=== PATIENT | female | born 1995 | race Caucasian/White ===

== ENCOUNTER 2019-09-27 15:54 | Outpatient (CLI) | payer BC ==
[~2019-09-27] VITALS: Ht 163 cm; Wt 79.6 kg
[~2019-09-27 15:54] MED LIST: FERR256T PO; IBP600T1 PO; PREN-93 PO
--- NOTE | 2019-09-27 16:00 | NUR ---
ALLISON MCCONNELL presented to unit via ambulation from ED, accompanied by S.o., with c/o CONTRACTIONS. ALLISON MCCONNELL weighed, gowned, voided, and to bed. EFHM and TOCO applied, VS taken. ALLISON MCCONNELL oriented to bed controls, call light, TV, heat, and A/C controls.
[2019-09-27 16:22] VITALS: BP 105/64
[2019-09-27 16:23] LABS: BILIRUBIN,URINE NEGATIVE (NEGATIVE); CLARITY,URINE OTHER; COLOR,URINE YELLOW; GLUCOSE, URINE (UA) NEGATIVE (NEGATIVE); KETONES,URINE NEGATIVE (NEGATIVE); LEUKOCYTE ESTERASE ,URINE 1+ (NEGATIVE); NITRITE,URINE NEGATIVE (NEGATIVE); PH,URINE 6.5 (5-9); PROTEIN,URINE NEGATIVE (NEGATIVE)
[2019-09-27 16:27] VITALS: BP 105/54
[2019-09-27 16:34] LABS: BACTERIA,URINE MODERATE /HPF; SQUAMOUS EPITHELIAL CELL,UR 25-50 /HPF; WBC,URINE 50-100 /HPF
--- NOTE | 2019-09-27 17:20 | NUR ---
DR. HERNANDEZ NOTIFIED OF PT'S ARRIVAL, @ 32.4 WKS, C/O CTXS, UA RESULTS, REVIEW OF STRIP. ORDER RECEIVED FOR DISCHARGE HOME.
--- NOTE | 2019-09-27 17:30 | NUR ---
DISCHARGE PAPERS PROVIDED AND REVIEWED WITH PT, PT VERBALIZES UNDERSTANDING AND DENIES ANY QUESTIONS AT THIS TIME. PT ALREADY HAS AN APPT TO BE SEEN BY DR. RICHARD TOMORROW, 09/28. PAPER SIGNED.
--- NOTE | 2019-09-27 17:35 | NUR ---
PT DISCHARGED FROM [facility] TO [facility] VIA AMBULATORY IN STABLE CONDITION ACC BY S/O.
--- NOTE | 2019-09-28 08:15 | Physician Query-Final Dx ---
Clinic Account Progress/Dx Physician Query: Please give diagnosis Please include # weeks gestation Date of Service Sep 27, 2019 at 15:54 ERI DUMONT Sep 28, 2019 08:15
== END 2019-09-27 17:35 | disposition home or self-care (01) ==
LOC: WSo 15:54 → LDRP 15:56 → WSo 17:35
PROVIDERS: ATTEND Family Medicine
DX: O62.9 Abnormality of forces of labor, unspecified (principal); Z3A.00 Weeks of gestation of pregnancy not specified
CPT/HCPCS: 81000; 87077; 87088; 99212

== ENCOUNTER 2019-10-03 15:53 | Outpatient (CLI) | payer BC ==
[~2019-10-03] VITALS: Ht 166 cm; Wt 79.4 kg
--- NOTE | 2019-10-03 16:10 | NUR ---
ALLISON MCCONNELL presented to unit via ambulation from ED, accompanied by S.O., with c/o FELL UP STAIRS,NO CURRENT PAIN. ALLISON MCCONNELL weighed, gowned, voided, and to bed. EFHM and TOCO applied, VS taken. ALLISON MCCONNELL oriented to bed controls, call light, TV, heat, and A/C controls.
[2019-10-03 16:15] VITALS: BP 110/63
[2019-10-03 16:30] VITALS: BP 110/68
--- NOTE | 2019-10-03 16:30 | NUR ---
Dr Zapata called and notified of pt arrival to hospital. C/o fall at home at 1315. Pt reports falling "accordion" style and fell to knees but then knees bent into abdomen. notified of c/o decreased movement since fall and also had a loose BM 5min following fall. updated on EFM and ctx pattern. Order rec'd to monitor for 3 hrs then call with update and for further orders.
--- NOTE | 2019-10-03 20:05 | NUR ---
Discharge packet given and explained, understanding voiced by pt and aware to be seen in office this week. No concerns noted, ambulatory off unit at this time, accompanied by so. will cont to monitor.
--- NOTE | 2019-10-04 08:44 | Physician Query-Final Dx ---
Clinic Account Progress/Dx Physician Query: Please give diagnosis Please include # weeks gestation Date of Service Oct 03, 2019 at 15:53 ERI DUMONT Oct 04, 2019 08:44
== END 2019-10-03 20:05 | disposition home or self-care (01) ==
LOC: WSo 15:53 → LDRP 15:57 → WSo 20:05
PROVIDERS: ATTEND Family Medicine
DX: O62.9 Abnormality of forces of labor, unspecified (principal); W19.XXXA Unspecified fall, initial encounter; Z3A.33 33 weeks gestation of pregnancy
CPT/HCPCS: 99213

== ENCOUNTER 2019-10-19 17:32 | Outpatient (CLI) | payer BC ==
[~2019-10-19] VITALS: Ht 162.5 cm; Wt 80.7 kg
--- NOTE | 2019-10-19 17:32 | NUR ---
ALLISON MCCONNELL presented to unit via AMB from HOME, accompanied by S.O., with c/o COMPLAINT OF CONTRACTIONS. ALLISON MCCONNELL weighed, gowned, voided, and to bed. EFHM and TOCO applied, VS taken. ALLISON MCCONNELL oriented to bed controls, call light, TV, heat, and A/C controls.
[2019-10-19 17:40] VITALS: BP 122/64
--- NOTE | 2019-10-19 18:04 | NUR ---
AMNIO SWAB NEGATIVE. SVE BY SUNDAY VALDEZ. INT OSS DENT/THICK/ -3 AND SLIGHTLY POSTERIOR.
--- NOTE | 2019-10-19 18:11 | NUR ---
DR. RICHARD NOTIFIED OF PT'S ARRIVAL, COMPLAINT, AND CERVICAL EXAM. ORDERS RECEIVED.
[2019-10-19 18:23] VITALS: BP 122/64
[2019-10-19 18:25] VITALS: BP 108/62
[2019-10-19] MEDS ORDERED: LACTATED RINGERS 1,000 ML IV SCH (18:30)
--- NOTE | 2019-10-19 18:30 | NUR ---
IV STARTED. SEE INTERVENTION.
--- NOTE | 2019-10-19 19:00 | NUR ---
CTXS FEEL LESS PAINFUL PER PT. CTXS IRREGULAR EVERY 2-17 MIN WITH UTERINE IRRITABILITY/30-80 SEC DURATION/MILD TO PALPATION. FHR 135 WITH AVG VARIABILITY, + ACCELS. VERY ACTIVE FETUS WITH LARGE ACCELS. OCC MILD VARIABLE.
--- NOTE | 2019-10-19 19:45 | NUR ---
Irritability noted pt states pain is less often. Pt up to void and then back to bed. SVE performed and no change in dialation. Dr Davila called and report given. Pt to discharge home and call for F/U sooner if UC start to get worse. Labor precautions given and pt agrees with POC.
[2019-10-19] MEDS ORDERED: DOXY25TA56 PO (19:53)
[2019-10-19] MEDS ORDERED: ESCI20TA PO (19:53)
[2019-10-19] MEDS ORDERED: PROM25TA14 PO (19:53)
--- NOTE | 2019-10-19 20:10 | NUR ---
FHR 135 moderate variability with accels noted, 30-40 sec UC pt states sharp pain lasting short time. some correlation with movement.
--- NOTE | 2019-10-19 20:25 | NUR ---
Pt Discharge to home with written and verbal discharge instructions.
--- NOTE | 2019-10-20 08:08 | Physician Query-Final Dx ---
ERI DUMONT 10/20/19 0808: Clinic Account Progress/Dx Physician Query: Please give diagnosis Please include # weeks gestation Date of Service Oct 19, 2019 at 17:32 EAN RICHARD MD 10/20/19 2132: Clinic Account Progress/Dx DIAGNOSIS: Diagnosis 35 weeks gestation Contractions without active labor ERI DUMONT Oct 20, 2019 08:08 EAN RICHARD MD Oct 20, 2019 21:32
== END 2019-10-19 20:25 | disposition home or self-care (01) ==
LOC: LDRP 17:32 → WSo 17:32
PROVIDERS: ATTEND Family Medicine
DX: O62.9 Abnormality of forces of labor, unspecified (principal); Z3A.35 35 weeks gestation of pregnancy
CPT/HCPCS: 96360; 99214

== ENCOUNTER 2019-11-07 09:30 | Outpatient (CLI) | payer BC ==
[~2019-11-07] VITALS: Ht 162 cm; Wt 82.0 kg
[~2019-11-07 09:30] MED LIST changes: +DOXY25TA56 PO; +ESCI20TA PO; +PROM25TA14 PO
--- NOTE | 2019-11-07 09:35 | NUR ---
ALLISON MCCONNELL presented to unit via from ED, accompanied by s/o, with c/o CONTRACTIONS. ALLISON MCCONNELL weighed, gowned, voided, and to bed. EFHM and TOCO applied, VS taken. ALLISON MCCONNELL oriented to bed controls, call light, TV, heat, and A/C controls.
[2019-11-07 10:05] VITALS: BP 121/78
--- NOTE | 2019-11-07 12:45 | NUR ---
sve by this RN. no change from previous exam. dr cleary notified of current /contraction tracing. continuing to monitor expectantly. review plan for continued monitoring for active labor patient and s/o verbalized understanding.
[2019-11-07 13:00] VITALS: BP 114/73
[2019-11-07 14:40] VITALS: BP 109/68
[2019-11-07 15:59] VITALS: BP_SYST 100; BP_SYST 121; BP_DIAS 60; BP_DIAS 78
[2019-11-07 19:35] VITALS: BP 121/65
[2019-11-07] MEDS ORDERED: morphine INJ 10 MG/ML 1ML (SYR OR VIAL) IM STA (20:04)
[2019-11-07] MEDS ORDERED: morphine INJ 10 MG/ML 1ML (SYR OR VIAL) ONE (20:18)
[2019-11-07 21:40] VITALS: BP 122/72
--- NOTE | 2019-11-07 21:44 | NUR ---
Written discharge instructions reviewed with patient. Discharge instructions signed and copy given. Patient dismissed home on labor precautions, accompanied by significant other. Condition stable. No signs or symptoms of distress.
--- NOTE | 2019-11-08 08:40 | Physician Query-Final Dx ---
ERI DUMONT 11/08/19 0840: Clinic Account Progress/Dx Physician Query: Please give diagnosis Please include # weeks gestation Date of Service Nov 07, 2019 at 09:30 EAN RICHARD MD 11/10/19 2141: Clinic Account Progress/Dx DIAGNOSIS: Diagnosis 38 weeks gestation Contractions without active labor ERI DUMONT Nov 08, 2019 08:40 EAN RICHARD MD Nov 10, 2019 21:41
== END 2019-11-07 21:44 | disposition home or self-care (01) ==
LOC: WSo 09:30 → LDRP 09:30 → WSo 21:44
PROVIDERS: ATTEND Family Medicine
DX: O62.9 Abnormality of forces of labor, unspecified (principal); Z3A.00 Weeks of gestation of pregnancy not specified
CPT/HCPCS: 96372; 99214

== ENCOUNTER 2019-11-10 12:16 | Inpatient (IN) | payer BC ==
[~2019-11-10] VITALS: Ht 162.6 cm; Wt 83.8 kg
[2019-11-10] VITALS (49 sets, daily range): BP systolic 103–154; BP diastolic 51–96
--- NOTE | 2019-11-10 12:09 | NUR ---
ALLISON MCCONNELL presented to unit via ambulation as direct admit r/t advanced dilitation, accompanied by s/o. Pt. weighed, gowned, voided, and to bed. EFHM and TOCO applied, VS taken. Pt. oriented to bed controls, call light, TV, heat, and A/C controls.
[2019-11-10] MEDS ORDERED: OXYTOCIN PRE-MIX DRIP 500 ML IV SCH ×2 (12:38→21:19)
--- NOTE | 2019-11-10 12:40 | NUR ---
admission paperwork completed
[2019-11-10] MEDS ORDERED: MINERAL OIL CONCENTRATE 99.9% 15 ML UDC TOP PRN (12:45)
[2019-11-10] MEDS ORDERED: VANCOMYCIN INJECTION 1,000 MG in NS (IVPB) 250 ML IV SCH (12:45)
--- NOTE | 2019-11-10 12:58 | NUR ---
#18g IV to Lt. wrist x1 attempt by this RN. site patent, admission labs collected from site prior to IVF's infusing. pt tolerated well.
[2019-11-10] MEDS: D5 LR IV SOLUTION 1,000 ML IV SCH ×2 (13:04→17:55)
--- NOTE | 2019-11-10 13:10 | NUR ---
report given to JOSÉ MIGUEL Brizuela. care assumed of pt.
[2019-11-10 13:18] LABS: BASOPHILS % (AUTO) 0 % (0-10); EOSINOPHILS # (AUTO) 0.1 10^3/uL (0.0-0.3); EOSINOPHILS % (AUTO) 1 % (0-10); HEMATOCRIT 38 % (35-52); HEMOGLOBIN 12.7 G/DL (11.5-16.0); LYMPHOCYTES # (AUTO) 1.7 X 10^3 (1.0-4.0); LYMPHOCYTES % (AUTO) 17 % (12-44); MEAN CORPUSCULAR HEMOGLOBIN 30 PG (25-34); MEAN CORPUSCULAR HGB CONC 33 G/DL (32-36); MEAN CORPUSCULAR VOLUME 91 FL (80-99); MONOCYTES # (AUTO) 0.8 X 10^3 (0.0-1.0); MONOCYTES % (AUTO) 8 % (0-12); NEUTROPHILS # (AUTO) 7.4 X 10^3 (1.8-7.8); NEUTROPHILS % (AUTO) 74 % (42-75); PLATELET COUNT 107 10^3/uL (130-400); RED CELL DISTRIBUTION WIDTH 12.9 % (10.0-14.5)
[2019-11-10] MEDS ORDERED: CATHETER FLUSH 10 ML SYR IV SCH ×2 (14:00→22:00)
--- NOTE | 2019-11-10 14:20 | NUR ---
called into pt's room. pt voices c/o itching on top of head, inside of mouth, back of neck and shoulders. denies SOA. reports sx's started approx 10 mins ago. Vancomycin infusion stopped.
--- NOTE | 2019-11-10 14:21 | NUR ---
was called. update given on pt's c/o's. new orders received. Addendum: 11/10/19 at 1433 by TATI ROCKWELL RN corrections- Dr. mathur @ [phone]
--- OUTSIDE RECORDS SUMMARY | 2019-11-10 14:32 | XMS REPORT ---
Author Author Michael RICHARD Organization [facility] Address [address] [place] [address] Care Team Providers Care Entertainment Director Name Role Phone EAN RICHARD Unavailable PROBLEMS Type Condition ICD9-CM Code DPW43-CP Code Onset Dates Condition S tatus SNOMED Code Problem Ypnsbc-fu-llnr transgender person F64.0 Active 749417328 Problem Recurrent major depressive disorder, in full remission F33.42 Active 31122344 ALLERGIES No Information ENCOUNTERS Encounter Location Date Diagnosis [place] [address] [address] Oct, [place] [address] [address] Oct, [address] [address] Oct, [place] [address] [address] Oct, [address] [address] Sep, Third trimester Z34.93 and 34 weeks gestation of Z3A.[address] [address] Sep, Third trimester Z34.93 and Fal l (on) (from) other stairs and steps, subsequent encounter W10.8XXD [place] [address] [address] Sep, Third trimester Z34.93 [place] [address] [address] Aug, Third trimester Z34.93 ; Encou nter for immunization Z23 and 30 weeks gestation of Z3A.30 [place] [address] [address] 14 Aug, 2019 [place] [address] [address] Aug, Second trimester Z34.92 [place] [address] [address] Jul, Recurrent major depressive disorder, in full remission F33.42 [place] [address] [address] 16 Jul, 2019 Second trimester Z34.92 and 24 weeks gestation of Z3A.24 [place] [address] [address] Jun, Second trimester Z34.92 ; Enco unter for immunization Z23 and Second trimester Z33.1 [place] [address] [address] Jun, Second trimester fetus Z34.92 [place] [address] [address] May, [place] [address] [address] May, Second trimester Z34.92 ; Seco nd trimester Z33.1 ; Encounter for immunization Z23 ; Recurrent major depressive disorder, in full remission F33.42 and 16 weeks gestation of Z3A.16 [place] [address] [address] 14 May, 2019 Second trimester Z33.1 [place] [address] [address] Apr, First trimester Z34.91 and 12 weeks gestation of Z3A.12 [place] [address] [address] 09 Apr, 2019 [place] [address] [address] Apr, [facility] [address] [address] Apr, First trimester Z34.91 [facility] [address] [address] Mar, [facility] [address] [address] Mar, Positive test Z32.01 ; First t rimester Z34.91 ; Nausea and vomiting during O21.9 and 8 weeks gestation of Z3A.08 [facility] [address] [address] Mar, [facility] [address] [address] Mar, [facility] [address] [address] December, Encounter for IUD removal Z30.432 [facility] [address] [address] Nov, [facility] [address] [address] Oct, Pelvic pain R10.2 [facility] [address] [address] Oct, Pelvic pain R10.2 [facility] [address] [address] Oct, Kqtiza-ue-rvni transgender person F64.0 [facility] [address] [address] Oct, Attluc-kz-hkvv transgender person F64.0 ; Pelvic pain R10.2 and IUD surveillance Z30.431 [facility] [address] [address] Sep, [facility] [address] [address] Aug, [facility] [address] [id number] [place] [address] Feb, Surveillance of previously prescribed in trauterine contraceptive device V25.42 [facility] [address] [id number] [place] [address] 14 Nov, 2014 [facility] [address] [place] [id number] [place] [address] Nov, [facility] [address] [place] [id number] [place] [address] Mar, [facility] [address] [place] [id number] [place] [address] Mar, [facility] [address] [place] [id number] [place] [address] Feb, [facility] [address] [place] [id number] [place] [address] Feb, [facility] [address] [place] [id number] [place] [address] Jan, [facility] [address] [place] [id number] [place] [address] Jan, [facility] [address] [place] [id number] [place] [address] Jan, [facility] [address] [place] [id number] [place] [address] Jan, [facility] [address] [place] [id number] [place] [address] Jan, [facility] [address] [id number] [place] [address] Jan, [facility] [address] [place] [id number] [place] [address] Nov, [facility] [address] [place] [id number] [place] [address] Nov, [facility] [address] [place] [id number] [place] [address] Nov, [facility] [place] [facility] [address] [id number] [place] [address] Nov, [facility] [place] [facility] [address] [facility] [address] [id number] [place] [address] Nov, [facility] [place] [facility] [address] [id number] [place] [address] Nov, [facility] [place] [facility] [address] [id number] [place] [address] Nov, [facility] [place] [facility] [address] [id number] [place] [address] Nov, [facility] [place] [facility] [address] [id number] [place] [address] Nov, [facility] [place] [facility] [address] [id number] [place] [address] Nov, [facility] [place] [facility] [address] [id number] [place] [address] Nov, [facility] [place] [facility] [address] [id number] [place] [address] Nov, [facility] [place] [facility] [address] [id number] [place] [address] Nov, [facility] [place] [facility] [address] [id number] [place] [address] Nov, [facility] [place] [facility] [address] [id number] [place] [address] Nov, [facility] [place] [facility] [address] [id number] [place] [address] Nov, [facility] [place] [facility] [address] [id number] [place] [address] Nov, [facility] [place] [facility] [address] [id number] [place] [address] Nov, [facility] [place] [facility] [address] [id number] [place] [address] Oct, [facility] [place] [facility] [address] [id number] [place] [address] Oct, [facility] [place] [facility] [address] [facility] [address] [id number] [place] [address] Oct, [facility] [place] [facility] [address] [facility] [address] [id number] [place] [address] Oct, [facility] [place] [facility] [address] [facility] [address] [id number] [place] [address] Oct, [facility] [place] [facility] [address] [facility] [address] [id number] [place] [address] Oct, [facility] [place] [facility] [address] [facility] [address] [id number] [place] [address] Oct, [facility] [place] [facility] [address] [facility] [address] [id number] [place] [address] Oct, [facility] [place] [facility] [address] [facility] [address] [id number] [place] [address] Oct, [facility] [place] [facility] [address] [id number] [place] [address] Oct, [facility] [place] [facility] [address] [facility] [address] [id number] [place] [address] Sep, [facility] [place] [facility] [address] [id number] [place] [address] Sep, [facility] [place] [facility] [address] [facility] [address] [id number] [place] [address] Sep, [facility] [place] [facility] [address] [id number] [place] [address] Sep, [facility] [place] [facility] [address] [facility] [address] [id number] [place] [address] Sep, [facility] [place] [facility] [address] [facility] [address] [id number] [place] [address] Sep, [facility] [place] [facility] [address] [facility] [address] [id number] [place] [address] Aug, [facility] [place] [facility] [address] [id number] [place] [address] Aug, [facility] [place] [facility] [address] [id number] [place] [address] 15 Aug, 2013 [facility] [place] [facility] [address] [id number] [place] [address] 14 Aug, 2013 [facility] [place] [facility] [address] [id number] [place] [address] 14 Aug, 2013 [facility] [place] [facility] [address] [id number] [place] [address] Aug, [facility] [place] [facility] [address] [id number] [place] [address] Aug, [facility] [place] [facility] [address] [id number] [place] [address] Aug, [facility] [place] [facility] [address] [id number] [place] [address] Aug, [facility] [place] [facility] [address] [id number] [place] [address] Jul, [facility] [place] [facility] [address] [id number] [place] [address] Jul, [facility] [place] [facility] [address] [id number] [place] [address] Jul, [facility] [place] [facility] [address] [id number] [place] [address] Jul, [facility] [place] [facility] [address] [id number] [place] [address] Jun, [facility] [place] [facility] [address] [id number] [place] [address] Jun, [facility] [place] [facility] [address] [id number] [place] [address] May, [facility] [place] [facility] [address] [place] [id number] [place] [address] May, [facility] [place] [facility] [address] [id number] [place] [address] May, [facility] [place] [facility] [address] [id number] [place] [address] May, [facility] [address] [id number] [place] [address] 19 Apr, 2013 [facility] [address] [id number] [place] [address] 18 Apr, 2013 [facility] [address] [id number] [place] [address] 17 Apr, 2013 IMMUNIZATIONS No Known Immunizations SOCIAL HISTORY Never Assessed REASON FOR VISIT PLAN OF CARE VITAL SIGNS MEDICATIONS Unknown Medications RESULTS No Results PROCEDURES No Known procedures INSTRUCTIONS MEDICATIONS ADMINISTERED No Known Medications MEDICAL (GENERAL) HISTORY Type Description Date Surgical History tonsils a nd adenoids remove Surgical History double masectomy Hospitalization History surgery Hospitalization History childbirth
--- OUTSIDE RECORDS SUMMARY | 2019-11-10 14:32 | XMS REPORT ---
Author Author Michael RICHARD [facility] Address [address] [place] [address] Care Team Providers Care Perianesthesia Nurse Name Role Phone HILARY EAN Unavailable PROBLEMS Type Condition ICD9-CM Code QCF91-HB Code Onset Dates Condition S tatus SNOMED Code Problem Tdimgb-tg-hyqy transgender person F64.0 Active 377788458 Problem Recurrent major depressive disorder, in full remission F33.42 Active [id number] ALLERGIES No Information ENCOUNTERS Encounter Location Date Diagnosis [address] [address] Oct, [address] [address] Oct, Third trimester Z33.1 and 37 w eeks gestation of Z3A.[address] [address] 12 Oct, 2019 Third trimester Z33.1 and 36 w eeks gestation of Z3A.[address] [address] Oct, [address] [address] Oct, [address] [address] Sep, Third trimester Z34.93 and 34 weeks gestation of Z3A.[address] [address] Sep, Third trimester Z34.93 and Fal l (on) (from) other stairs and steps, subsequent encounter W10.8XXD [address] [place] [address] 12 Sep, 2019 Third trimester Z34.93 [place] [address] [address] 28 Aug, 2019 Third trimester Z34.93 ; Encou nter for immunization Z23 and 30 weeks gestation of Z3A.30 [place] [address] [address] 14 Aug, 2019 [place] [address] [address] 13 Aug, 2019 Second trimester Z34.92 [place] [address] [address] Jul, Recurrent major depressive disorder, in full remission F33.42 [place] [address] [address] 16 Jul, 2019 Second trimester Z34.92 and 24 weeks gestation of Z3A.24 [place] [address] [address] Jun, Second trimester Z34.92 ; Enco unter for immunization Z23 and Second trimester Z33.1 [place] [address] [address] Jun, Second trimester fetus Z34.92 [place] [address] [address] May, [place] [address] [address] May, Second trimester Z34.92 ; Seco nd trimester Z33.1 ; Encounter for immunization Z23 ; Recurrent major depressive disorder, in full remission F33.42 and 16 weeks gestation of Z3A.16 [place] [address] [address] 14 May, 2019 Second trimester Z33.1 [place] [address] [address] Apr, First trimester Z34.91 and 12 weeks gestation of Z3A.12 [place] [address] [address] Apr, [place] [address] [address] Apr, [place] [address] [address] Apr, First trimester Z34.91 [place] [address] [address] Mar, [place] [address] [address] Mar, Positive test Z32.01 ; First t rimester Z34.91 ; Nausea and vomiting during O21.9 and 8 weeks gestation of Z3A.08 [place] [address] [address] Mar, [place] [address] [address] Mar, [place] [address] [address] December, Encounter for IUD removal Z30.432 [place] [address] [address] Nov, [place] [address] [address] Oct, Pelvic pain R10.2 [place] [address] [address] Oct, Pelvic pain R10.2 [place] [address] [address] Oct, Qbfdvo-ae-ddub transgender person F64.0 [place] [address] [address] Oct, Ntxfmf-hh-dpgf transgender person F64.0 ; Pelvic pain R10.2 and IUD surveillance Z30.431 [facility] [id number] [place] [address] 14 Sep, 2018 [facility] [id number] [place] [address] Aug, [facility] [id number] [place] [address] Feb, Surveillance of previously prescribed in trauterine contraceptive device V25.42 [facility] [id number] [place] [address] Nov, [facility] [address] [address] Nov, [facility] [address] [address] Mar, [facility] [address] [address] Mar, [facility] [address] [address] Feb, [facility] [address] [address] Feb, [facility] [address] [address] Jan, [facility] [id number] [place] [address] Jan, [facility] [address] [address] Jan, [facility] [address] [id number] [place] [address] Jan, [facility] [address] [address] Jan, [facility] [id number] [place] [address] Jan, [facility] [address] [address] Nov, [facility] [address] [facility] [id number] [place] [address] Nov, [facility] [address] [id number] [place] [address] Nov, [facility] [address] [id number] [place] [address] Nov, [facility] [address] [id number] [place] [address] Nov, [facility] [address] [facility] [id number] [place] [address] Nov, [facility] [address] [id number] [place] [address] Nov, [facility] [address] [id number] [place] [address] Nov, [facility] [address] [id number] [place] [address] Nov, [facility] [address] [id number] [place] [address] Nov, [facility] [address] [id number] [place] [address] Nov, [facility] [address] [id number] [place] [address] Nov, [facility] [address] [id number] [place] [address] Nov, [facility] [address] [id number] [place] [address] Nov, [facility] [address] [id number] [place] [address] Nov, [facility] [address] [id number] [place] [address] Nov, [facility] [address] [id number] [place] [address] Nov, [facility] [address] [id number] [place] [address] Nov, [facility] [address] [facility] [id number] [facility] [place] [address] Oct, [facility] [address] [facility] [id number] [facility] [place] [address] Oct, [facility] [address] [facility] [id number] [facility] [place] [address] Oct, [facility] [address] [facility] [id number] [facility] [place] [address] Oct, [facility] [address] [facility] [id number] [facility] [address] Oct, [facility] [address] [facility] [id number] [place] [address] Oct, [facility] [address] [id number] [place] [address] Oct, [facility] [address] [id number] [place] [address] Oct, [facility] [address] [facility] [id number] [place] [address] Oct, [facility] [address] [facility] [id number] [place] [address] Oct, [facility] [address] [facility] [id number] [place] [address] Sep, [facility] [address] [facility] [id number] [place] [address] Sep, [facility] [address] [facility] [id number] [facility] [place] [place] [address] Sep, [facility] [address] [facility] [id number] [place] [address] Sep, [facility] [address] [facility] [id number] [place] [address] Sep, [facility] [address] [id number] [place] [address] Sep, [facility] [address] [id number] [place] [address] Aug, [facility] [address] [id number] [place] [address] Aug, [facility] [address] [id number] [place] [address] Aug, [facility] [address] [id number] [place] [address] Aug, [facility] [address] [id number] [place] [address] Aug, [facility] [address] [id number] [place] [address] Aug, [facility] [address] [id number] [place] [address] Aug, [facility] [address] [id number] [place] [address] Aug, [facility] [address] [id number] [place] [address] Aug, [facility] [address] [id number] [place] [address] Jul, [facility] [address] [id number] [place] [address] Jul, [facility] [address] [id number] [place] [address] Jul, [facility] [address] [id number] [place] [address] 05 Jul, 2013 [facility] [address] [id number] [place] [address] Jun, [facility] [address] [id number] [place] [address] Jun, [facility] [address] [id number] [place] [address] May, [facility] [address] [id number] [place] [address] May, [facility] [address] [id number] [place] [address] May, [facility] [address] [id number] [place] [address] May, [facility] [address] [id number] [place] [address] 19 Apr, 2013 [facility] [address] [id number] [place] [address] 18 Apr, 2013 [facility] [address] [id number] [place] [address] 17 Apr, 2013 IMMUNIZATIONS No Known Immunizations SOCIAL HISTORY Never Assessed REASON FOR VISIT PLAN OF CARE VITAL SIGNS Height 64 in 2013-08-30 Weight 141.3 lbs 2013-08-30 Temperature 97.9 degrees Fahrenheit 2013-08-30 Heart Rate 80 bpm 2013-08-30 Respiratory Rate 18 2013-08-30 Blood pressure systolic 108 mmHg 2013-08-30 Blood pressure diastolic 72 mmHg 2013-08-30 MEDICATIONS Unknown Medications RESULTS No Results PROCEDURES Procedure Date Ordered Result Body Site COMPLETE CBC W/AUTO DIFF WBC Aug 30, 2013 GLUCOSE TEST Aug 30, 2013 VENIPUNCT, ROUTINE* Aug 30, 2013 URINE-NO MICRO Aug 30, 2013 INSTRUCTIONS MEDICATIONS ADMINISTERED No Known Medications MEDICAL (GENERAL) HISTORY Type Description Date Surgical History tonsils a nd adenoids remove Surgical History double masectomy Hospitalization History surgery Hospitalization History childbirth
--- OUTSIDE RECORDS SUMMARY | 2019-11-10 14:32 | XMS REPORT ---
Author Author Michael RICHARD [facility] Address [address] [place] [address] Care Team Providers Care Land Development Manager Name Role Phone EAN RICHARD Unavailable PROBLEMS Type Condition ICD9-CM Code [id number] Code Onset Dates Condition S tatus SNOMED Code Problem Sqowdx-on-vart transgender person F64.0 Active [id number] Problem Recurrent major depressive disorder, in full remission F33.42 Active [id number] ALLERGIES No Information ENCOUNTERS Encounter Location Date Diagnosis [address] [address] Oct, [address] [address] Oct, [address] [address] Oct, Third trimester Z33.1 and 36 w eeks gestation of Z3A.[address] [address] 09 Oct, 2019 [place] [address] [address] Oct, [address] [address] Sep, Third trimester Z34.93 and 34 weeks gestation of Z3A.[address] [address] Sep, Third trimester Z34.93 and Fal l (on) (from) other stairs and steps, subsequent encounter W10.8XXD [address] [address] Sep, Third trimester Z34.93 [place] [address] [address] Aug, Third trimester Z34.93 ; Encou nter for immunization Z23 and 30 weeks gestation of Z3A.30 [place] [address] [address] 14 Aug, 2019 [place] [address] [address] Aug, Second trimester Z34.92 [place] [address] [address] 17 Jul, 2019 Recurrent major depressive disorder, in full remission F33.42 [place] [address] [address] 16 Jul, 2019 Second trimester Z34.92 and 24 weeks gestation of Z3A.[address] [address] 18 Jun, 2019 Second trimester Z34.92 ; Enco unter for immunization Z23 and Second trimester Z33.1 [place] [address] [address] Jun, Second trimester fetus Z34.92 [place] [address] [address] May, [place] [address] [address] May, Second trimester Z34.92 ; Seco nd trimester Z33.1 ; Encounter for immunization Z23 ; Recurrent major depressive disorder, in full remission F33.42 and 16 weeks gestation of Z3A.16 [place] [address] [address] 14 May, 2019 Second trimester Z33.1 [place] [address] [address] Apr, First trimester Z34.91 and 12 weeks gestation of Z3A.12 [facility] [id number] [place] [address] Apr, [facility] [address] [address] Apr, [facility] [id number] [place] [address] Apr, First trimester Z34.91 [facility] [address] [address] Mar, [facility] [id number] [place] [address] Mar, Positive test Z32.01 ; First t rimester Z34.91 ; Nausea and vomiting during O21.9 and 8 weeks gestation of Z3A.08 [place] [id number] [place] [address] Mar, [facility] [address] [address] Mar, [facility] [id number] [place] [address] December, Encounter for IUD removal Z30.432 [place] [address] [address] [id number] [place] [address] Nov, [facility] [address] [address] Oct, Pelvic pain R10.2 [facility] [id number] [place] [address] Oct, Pelvic pain R10.2 [facility] [id number] [place] [address] Oct, Evjfjr-xj-nldu transgender person F64.0 [facility] [id number] [place] [address] Oct, Cbjhps-pg-pxfj transgender person F64.0 ; Pelvic pain R10.2 and IUD surveillance Z30.431 [place] [id number] [place] [address] 14 Sep, 2018 [facility] [address] [id number] [place] [address] Aug, [facility] [address] [id number] [place] [address] Feb, Surveillance of previously prescribed in trauterine contraceptive device V25.42 [facility] [id number] [place] [address] Nov, [facility] [address] [id number] [place] [address] Nov, [facility] [id number] [place] [address] Mar, [facility] [id number] [place] [address] Mar, [facility] [id number] [place] [address] Feb, [facility] [id number] [place] [address] Feb, [facility] [id number] [place] [address] Jan, [facility] [id number] [place] [address] Jan, [facility] [id number] [place] [address] Jan, [facility] [id number] [place] [address] Jan, [facility] [id number] [place] [address] Jan, [facility] [id number] [place] [address] Jan, [facility] [id number] [place] [address] Nov, [facility] [address] [id number] [facility] [place] [address] 30 Nov, 2013 [facility] [address] [id number] [facility] [place] [address] Nov, [facility] [address] [facility] [id number] [facility] [place] [address] Nov, [facility] [address] [id number] [facility] [place] [address] Nov, [facility] [address] [id number] [facility] [place] [address] Nov, [facility] [address] [facility] [id number] [facility] [place] [address] Nov, [facility] [address] [id number] [place] [address] Nov, [facility] [address] [id number] [place] [address] Nov, [facility] [address] [id number] [place] [address] Nov, [facility] [address] [id number] [facility] [place] [address] Nov, [facility] [address] [id number] [place] [address] Nov, [facility] [address] [id number] [place] [address] Nov, [facility] [address] [id number] [place] [address] Nov, [facility] [address] [facility] [id number] [facility] [place] [address] Nov, [facility] [address] [id number] [place] [address] Nov, [facility] [address] [id number] [place] [address] Nov, [facility] [address] [id number] [place] [address] Nov, [facility] [address] [facility] [id number] [place] [address] Oct, [facility] [address] [facility] [id number] [place] [address] Oct, [facility] [address] [facility] [id number] [place] [address] Oct, [facility] [address] [id number] [place] [address] Oct, [facility] [address] [facility] [id number] [place] [address] Oct, [facility] [address] [facility] [id number] [place] [address] Oct, [facility] [address] [id number] [place] [address] Oct, [facility] [address] [id number] [place] [address] Oct, [facility] [address] [id number] [place] [address] Oct, [facility] [address] [id number] [place] [address] Oct, [facility] [address] [id number] [place] [address] Sep, [facility] [address] [id number] [place] [address] Sep, [facility] [address] [id number] [place] [address] Sep, [facility] [address] [facility] [id number] [place] [address] Sep, [facility] [address] [id number] [place] [address] Sep, [facility] [address] [id number] [place] [address] Sep, [facility] [address] [id number] [place] [address] 16 Aug, 2013 [facility] [address] [id number] [place] [address] 16 Aug, 2013 [facility] [address] [id number] [place] [address] 15 Aug, 2013 [facility] [address] [id number] [place] [address] Aug, [facility] [address] [id number] [place] [address] Aug, [facility] [address] [id number] [place] [address] Aug, [facility] [address] [id number] [place] [address] Aug, [facility] [address] [id number] [place] [address] Aug, [facility] [address] [id number] [place] [address] Aug, [facility] [address] [id number] [place] [address] Jul, [facility] [address] [id number] [place] [address] Jul, [facility] [address] [id number] [place] [address] Jul, [facility] [address] [id number] [place] [address] 05 Jul, 2013 [facility] [address] [id number] [place] [address] Jun, [facility] [address] [id number] [place] [address] Jun, [facility] [address] [id number] [place] [address] May, [facility] [address] [id number] [place] [address] May, [facility] [address] [id number] [place] [address] May, [facility] [address] [id number] [place] [address] May, [facility] [address] [id number] [place] [address] Apr, [facility] [id number] [place] [address] Apr, [facility] [address] [id number] [place] [address] Apr, IMMUNIZATIONS No Known Immunizations SOCIAL HISTORY Never Assessed REASON FOR VISIT PLAN OF CARE VITAL SIGNS MEDICATIONS Unknown Medications RESULTS No Results PROCEDURES No Known procedures INSTRUCTIONS MEDICATIONS ADMINISTERED No Known Medications MEDICAL (GENERAL) HISTORY Type Description Date Surgical History tonsils a nd adenoids remove Surgical History double masectomy Hospitalization History surgery Hospitalization History childbirth
--- OUTSIDE RECORDS SUMMARY | 2019-11-10 14:32 | XMS REPORT ---
Author Michael Oden [facility] Address [address] [place] [address] Care Team Providers Care Manager Universal Name Role Phone AKASH HERNANDEZ Unavailable PROBLEMS Type Condition ICD9-CM Code OYV13-KA Code Onset Dates Condition S tatus SNOMED Code Problem Qjfuhx-qh-qevs transgender person F64.0 Active 892209369 Problem Recurrent major depressive disorder, in full remission F33.42 Active 81658789 ALLERGIES No Information ENCOUNTERS Encounter Location Date Diagnosis [address] [address] Oct, [address] [address] Oct, Third trimester Z33.1 and 37 w eeks gestation of Z3A.[address] [address] 12 Oct, 2019 Third trimester Z33.1 and 36 w eeks gestation of Z3A.[address] [address] 09 Oct, [address] [address] Oct, [address] [address] Sep, Third trimester Z34.93 and 34 weeks gestation of Z3A.[address] [address] Sep, Third trimester Z34.93 and Fal l (on) (from) other stairs and steps, subsequent encounter W10.8XXD [address] [address] 12 Sep, 2019 Third trimester Z34.93 [place] [address] [address] 28 Aug, 2019 Third trimester Z34.93 ; Encou nter for immunization Z23 and 30 weeks gestation of Z3A.30 [place] [address] [address] 14 Aug, 2019 [place] [address] [address] Aug, Second trimester Z34.92 [place] [address] [address] 17 Jul, 2019 Recurrent major depressive disorder, in full remission F33.42 [place] [address] [address] 16 Jul, 2019 Second trimester Z34.92 and 24 weeks gestation of Z3A.24 [place] [address] [address] Jun, Second trimester Z34.92 ; Enco unter for immunization Z23 and Second trimester Z33.1 [place] [address] [address] Jun, Second trimester fetus Z34.92 [place] [address] [address] May, [place] [address] [address] May, Second trimester Z34.92 ; Seco nd trimester Z33.1 ; Encounter for immunization Z23 ; Recurrent major depressive disorder, in full remission F33.42 and 16 weeks gestation of Z3A.16 [place] [address] [address] 14 May, 2019 Second trimester Z33.1 [place] [address] [address] Apr, First trimester Z34.91 and 12 weeks gestation of Z3A.12 [facility] [address] [address] Apr, [facility] [address] [address] Apr, [place] [address] [address] Apr, First trimester Z34.91 [place] [address] [address] Mar, [place] [address] [address] Mar, Positive test Z32.01 ; First t rimester Z34.91 ; Nausea and vomiting during O21.9 and 8 weeks gestation of Z3A.08 [place] [address] [address] Mar, [place] [address] [address] Mar, [place] [address] [address] December, Encounter for IUD removal Z30.432 [place] [address] [address] Nov, [place] [address] [address] Oct, Pelvic pain R10.2 [place] [address] [address] Oct, Pelvic pain R10.2 [place] [address] [address] Oct, Sginuu-fb-txbr transgender person F64.0 [place] [address] [address] Oct, Sadomr-uq-bwqr transgender person F64.0 ; Pelvic pain R10.2 and IUD surveillance Z30.431 [facility] [address] [id number] [place] [address] 14 Sep, 2018 [facility] [address] [place] [id number] [place] [address] Aug, [facility] [address] [id number] [place] [address] Feb, Surveillance of previously prescribed in trauterine contraceptive device V25.42 [facility] [id number] [place] [address] Nov, [facility] [address] [id number] [place] [address] Nov, [facility] [address] [place] [address] [id number] [place] [address] Mar, [facility] [address] [id number] [place] [address] Mar, [facility] [address] [place] [id number] [place] [address] Feb, [facility] [address] [place] [address] [id number] [place] [address] Feb, [facility] [address] [place] [address] [id number] [place] [address] Jan, [facility] [address] [place] [id number] [place] [address] Jan, [facility] [address] [place] [id number] [place] [address] Jan, [facility] [address] [place] [address] [id number] [place] [address] Jan, [facility] [address] [place] [address] [id number] [place] [address] Jan, [facility] [address] [place] [address] [id number] [place] [address] Jan, [facility] [address] [place] [id number] [place] [address] Nov, [facility] [place] [facility] [address] [id number] [place] [address] 30 Nov, 2013 [facility] [place] [facility] [address] [id number] [place] [address] Nov, [facility] [place] [facility] [address] [id number] [place] [address] Nov, [facility] [place] [facility] [address] [id number] [place] [address] Nov, [facility] [place] [facility] [address] [facility] [id number] [place] [address] Nov, [facility] [place] [facility] [address] [id number] [place] [address] Nov, [facility] [place] [facility] [address] [id number] [place] [address] Nov, [facility] [place] [facility] [address] [id number] [place] [address] Nov, [facility] [place] [facility] [address] [id number] [place] [address] Nov, [facility] [place] [facility] [address] [id number] [place] [address] Nov, [facility] [place] [facility] [address] [id number] [place] [address] Nov, [facility] [place] [facility] [address] [id number] [place] [address] Nov, [facility] [place] [facility] [address] [id number] [place] [address] Nov, [facility] [place] [facility] [address] [id number] [place] [address] Nov, [facility] [place] [facility] [address] [id number] [place] [address] Nov, [facility] [place] [facility] [address] [id number] [place] [address] Nov, [facility] [place] [facility] [address] [id number] [place] [address] Nov, [facility] [place] [facility] [address] [facility] [id number] [facility] [place] [address] Oct, [facility] [place] [facility] [address] [facility] [id number] [facility] [place] [address] Oct, [facility] [place] [facility] [address] [id number] [facility] [place] [address] Oct, [facility] [place] [facility] [address] [facility] [id number] [place] [address] Oct, [facility] [place] [facility] [address] [facility] [id number] [facility] [place] [address] Oct, [facility] [place] [facility] [address] [facility] [id number] [place] [address] Oct, [facility] [place] [facility] [address] [id number] [facility] [place] [address] Oct, [facility] [place] [facility] [address] [id number] [facility] [place] [address] Oct, [facility] [place] [facility] [address] [facility] [id number] [facility] [place] [address] Oct, [facility] [place] [facility] [address] [id number] [facility] [place] [address] Oct, [facility] [place] [facility] [address] [id number] [place] [address] Sep, [facility] [place] [facility] [address] [id number] [place] [address] Sep, [facility] [place] [facility] [address] [facility] [id number] [facility] [place] [address] Sep, [facility] [place] [facility] [address] [id number] [place] [address] Sep, [facility] [place] [facility] [address] [facility] [id number] [place] [address] Sep, [facility] [place] [facility] [address] [id number] [place] [address] Sep, [facility] [place] [facility] [address] [id number] [place] [address] Aug, [facility] [place] [facility] [address] [id number] [place] [address] Aug, [facility] [place] [facility] [address] [id number] [place] [address] 15 Aug, 2013 [facility] [place] [facility] [address] [id number] [place] [address] Aug, [facility] [place] [facility] [address] [id number] [place] [address] Aug, [facility] [place] [facility] [address] [id number] [place] [address] Aug, [facility] [place] [facility] [address] [id number] [place] [address] Aug, [facility] [place] [facility] [address] [place] [id number] [place] [address] Aug, [facility] [place] [facility] [address] [id number] [place] [address] Aug, [facility] [place] [facility] [address] [id number] [place] [address] Jul, [facility] [place] [facility] [address] [id number] [place] [address] Jul, [facility] [place] [facility] [address] [id number] [place] [address] Jul, [facility] [place] [facility] [address] [id number] [place] [address] 05 Jul, 2013 [facility] [place] [facility] [address] [id number] [place] [address] Jun, [facility] [place] [facility] [address] [place] [id number] [place] [address] Jun, [facility] [place] [facility] [address] [id number] [place] [address] May, [facility] [place] [facility] [address] [id number] [place] [address] May, [facility] [address] [id number] [place] [address] May, [facility] [address] [id number] [place] [address] May, [facility] [address] [id number] [place] [address] Apr, [facility] [address] [id number] [place] [address] 18 Apr, 2013 [facility] [address] [id number] [place] [address] Apr, IMMUNIZATIONS No Known Immunizations SOCIAL HISTORY Never Assessed REASON FOR VISIT PLAN OF CARE VITAL SIGNS MEDICATIONS Unknown Medications RESULTS No Results PROCEDURES No Known procedures INSTRUCTIONS MEDICATIONS ADMINISTERED No Known Medications MEDICAL (GENERAL) HISTORY Type Description Date Surgical History tonsils a nd adenoids remove Surgical History double masectomy Hospitalization History surgery Hospitalization History childbirth
--- OUTSIDE RECORDS SUMMARY | 2019-11-10 14:32 | XMS REPORT ---
Author Author Michael RICHARD Organization [facility] Address [address] [place] [address] Care Team Providers Care Resp Therapist Name Role Phone EAN RICHARD Unavailable PROBLEMS Type Condition ICD9-CM Code RIS36-MM Code Onset Dates Condition S tatus SNOMED Code Problem Yjmzpk-ph-znsm transgender person F64.0 Active 418480628 Problem Recurrent major depressive disorder, in full remission F33.42 Active 15010482 ALLERGIES No Information ENCOUNTERS Encounter Location Date Diagnosis [place] [address] [address] Oct, [place] [address] [address] Oct, [address] [address] Oct, [place] [address] [address] Oct, [address] [address] Sep, Third trimester Z34.93 and 34 weeks gestation of Z3A.34 [place] [address] [address] Sep, Third trimester Z34.93 and Fal l (on) (from) other stairs and steps, subsequent encounter W10.8XXD [place] [address] [address] Sep, Third trimester Z34.93 [place] [address] [address] Aug, Third trimester Z34.93 ; Encou nter for immunization Z23 and 30 weeks gestation of Z3A.30 [place] [address] [address] 14 Aug, 2019 [place] [address] [address] Aug, Second trimester Z34.92 [place] [address] [address] Jul, Recurrent major depressive disorder, in full remission F33.42 [place] [address] [address] 16 Jul, 2019 Second trimester Z34.92 and 24 weeks gestation of Z3A.24 [place] [address] [address] Jun, Second trimester Z34.92 ; Enco unter for immunization Z23 and Second trimester Z33.1 [place] [address] [address] Jun, Second trimester fetus Z34.92 [place] [address] [address] May, [place] [address] [address] May, Second trimester Z34.92 ; Seco nd trimester Z33.1 ; Encounter for immunization Z23 ; Recurrent major depressive disorder, in full remission F33.42 and 16 weeks gestation of Z3A.16 [place] [address] [address] 14 May, 2019 Second trimester Z33.1 [place] [address] [address] Apr, First trimester Z34.91 and 12 weeks gestation of Z3A.12 [place] [address] [address] 09 Apr, 2019 [place] [address] [address] Apr, [facility] [address] [address] Apr, First trimester Z34.91 [facility] [address] [address] Mar, [facility] [address] [address] Mar, Positive test Z32.01 ; First t rimester Z34.91 ; Nausea and vomiting during O21.9 and 8 weeks gestation of Z3A.08 [facility] [address] [address] Mar, [facility] [address] [address] Mar, [facility] [address] [address] December, Encounter for IUD removal Z30.432 [facility] [address] [address] Nov, [facility] [address] [address] Oct, Pelvic pain R10.2 [facility] [address] [address] Oct, Pelvic pain R10.2 [facility] [address] [address] Oct, Bouort-wl-pgrs transgender person F64.0 [facility] [address] [address] Oct, Vqmcrz-gg-avaa transgender person F64.0 ; Pelvic pain R10.2 and IUD surveillance Z30.431 [facility] [address] [address] Sep, [facility] [address] [address] Aug, [facility] [address] [id number] [place] [address] Feb, Surveillance of previously prescribed in trauterine contraceptive device V25.42 [facility] [address] [id number] [place] [address] 14 Nov, 2014 [facility] [address] [place] [id number] [place] [address] Nov, [facility] [address] [place] [address] [id number] [place] [address] Mar, [facility] [id number] [place] [address] Mar, [facility] [address] [place] [address] [id number] [place] [address] Feb, [facility] [address] [place] [id number] [place] [address] Feb, [facility] [id number] [place] [address] Jan, [facility] [address] [place] [id number] [place] [address] Jan, [facility] [id number] [place] [address] Jan, [facility] [id number] [place] [address] Jan, [facility] [address] [place] [id number] [place] [address] Jan, [facility] [address] [id number] [place] [address] Jan, [facility] [id number] [place] [address] Nov, [facility] [address] [place] [id number] [place] [address] Nov, [facility] [id number] [place] [address] Nov, [facility] [place] [facility] [address] [id number] [facility] [facility] [place] [address] Nov, [facility] [place] [facility] [address] [facility] [id number] [place] [address] Nov, [facility] [place] [facility] [address] [id number] [place] [address] Nov, [facility] [place] [facility] [address] [id number] [place] [address] Nov, [facility] [place] [facility] [address] [id number] [place] [address] Nov, [facility] [place] [facility] [address] [id number] [place] [address] Nov, [facility] [place] [facility] [address] [id number] [place] [address] Nov, [facility] [place] [facility] [address] [id number] [place] [address] Nov, [facility] [place] [facility] [address] [id number] [place] [address] Nov, [facility] [place] [facility] [address] [id number] [place] [address] Nov, [facility] [place] [facility] [address] [id number] [place] [address] Nov, [facility] [place] [facility] [address] [id number] [place] [address] Nov, [facility] [place] [facility] [address] [id number] [place] [address] Nov, [facility] [place] [facility] [address] [id number] [place] [address] Nov, [facility] [place] [facility] [address] [id number] [place] [address] Nov, [facility] [place] [facility] [address] [id number] [place] [address] Oct, [facility] [place] [facility] [address] [id number] [place] [address] Oct, [facility] [place] [facility] [address] [facility] [id number] [place] [address] Oct, [facility] [place] [facility] [address] [facility] [id number] [place] [address] Oct, [facility] [place] [facility] [address] [facility] [id number] [facility] [facility] [place] [address] Oct, [facility] [place] [facility] [address] [facility] [id number] [facility] [facility] [place] [address] Oct, [facility] [place] [facility] [address] [facility] [id number] [facility] [facility] [place] [address] Oct, [facility] [place] [facility] [address] [facility] [id number] [place] [address] Oct, [facility] [place] [facility] [address] [facility] [id number] [place] [address] Oct, [facility] [place] [facility] [address] [id number] [place] [address] Oct, [facility] [place] [facility] [address] [facility] [id number] [facility] [facility] [place] [address] Sep, [facility] [place] [facility] [address] [id number] [place] [address] Sep, [facility] [place] [facility] [address] [facility] [id number] [place] [address] Sep, [facility] [place] [facility] [address] [id number] [place] [address] Sep, [facility] [place] [facility] [address] [facility] [id number] [place] [address] Sep, [facility] [address] [facility] [id number] [place] [address] Sep, [facility] [address] [facility] [id number] [place] [address] Aug, [facility] [address] [id number] [place] [address] Aug, [facility] [address] [id number] [place] [address] 15 Aug, 2013 [facility] [address] [id number] [place] [address] 14 Aug, 2013 [facility] [address] [id number] [place] [address] 14 Aug, 2013 [facility] [address] [id number] [place] [address] Aug, [facility] [address] [id number] [place] [address] Aug, [facility] [address] [id number] [place] [address] Aug, [facility] [address] [id number] [place] [address] Aug, [facility] [address] [id number] [place] [address] Jul, [facility] [address] [id number] [place] [address] Jul, [facility] [address] [id number] [place] [address] Jul, [facility] [address] [id number] [place] [address] Jul, [facility] [address] [id number] [place] [address] Jun, [facility] [address] [id number] [place] [address] Jun, [facility] [address] [id number] [place] [address] May, [facility] [id number] [place] [address] May, [facility] [address] [id number] [place] [address] May, [facility] [address] [id number] [place] [address] May, [facility] [address] [id number] [place] [address] 19 Apr, 2013 [facility] [address] [id number] [place] [address] 18 Apr, 2013 [facility] [address] [id number] [place] [address] 17 Apr, 2013 IMMUNIZATIONS No Known Immunizations [...]
--- OUTSIDE RECORDS SUMMARY | 2019-11-10 14:33 | XMS REPORT ---
Author Author Michael RICHARD Organization [facility] Address [address] [place] [address] Care Team Providers Care Coppersmith Helper Name Role Phone EAN RICHARD Unavailable PROBLEMS Type Condition ICD9-CM Code [id number] Code Onset Dates Condition S tatus SNOMED Code Problem Iuralt-ug-ukbn transgender person F64.0 Active 115701470 Problem Recurrent major depressive disorder, in full remission F33.42 Active 64566265 ALLERGIES No Information ENCOUNTERS Encounter Location Date Diagnosis [place] [address] [address] Oct, [place] [address] [address] Oct, [address] [address] Oct, [place] [address] [address] Oct, [address] [address] Sep, Third trimester Z34.93 and 34 weeks gestation of Z3A.34 [place] [address] [address] Sep, Third trimester Z34.93 and Fal l (on) (from) other stairs and steps, subsequent encounter W10.8XXD [place] [address] [address] Sep, Third trimester Z34.93 [place] [address] [address] Aug, Third trimester Z34.93 ; Encou nter for immunization Z23 and 30 weeks gestation of Z3A.30 [place] [address] [address] 14 Aug, 2019 [place] [address] [address] Aug, Second trimester Z34.92 [place] [address] [address] Jul, Recurrent major depressive disorder, in full remission F33.42 [place] [address] [address] 16 Jul, 2019 Second trimester Z34.92 and 24 weeks gestation of Z3A.24 [place] [address] [address] Jun, Second trimester Z34.92 ; Enco unter for immunization Z23 and Second trimester Z33.1 [place] [address] [address] Jun, Second trimester fetus Z34.92 [place] [address] [address] May, [place] [address] [address] May, Second trimester Z34.92 ; Seco nd trimester Z33.1 ; Encounter for immunization Z23 ; Recurrent major depressive disorder, in full remission F33.42 and 16 weeks gestation of Z3A.16 [place] [address] [address] 14 May, 2019 Second trimester Z33.1 [place] [address] [address] Apr, First trimester Z34.91 and 12 weeks gestation of Z3A.12 [place] [address] [address] 09 Apr, 2019 [place] [address] [address] Apr, [facility] [address] [address] Apr, First trimester Z34.91 [facility] [address] [address] Mar, [facility] [address] [address] Mar, Positive test Z32.01 ; First t rimester Z34.91 ; Nausea and vomiting during O21.9 and 8 weeks gestation of Z3A.08 [facility] [address] [address] Mar, [facility] [address] [address] Mar, [facility] [address] [address] December, Encounter for IUD removal Z30.432 [facility] [address] [address] Nov, [facility] [address] [address] Oct, Pelvic pain R10.2 [facility] [address] [address] Oct, Pelvic pain R10.2 [facility] [address] [address] Oct, Ageumh-pb-zsrv transgender person F64.0 [facility] [address] [address] Oct, Xebqgg-mt-loog transgender person F64.0 ; Pelvic pain R10.2 and IUD surveillance Z30.431 [facility] [address] [address] Sep, [facility] [address] [address] Aug, [facility] [address] [id number] [place] [address] Feb, Surveillance of previously prescribed in trauterine contraceptive device V25.42 [facility] [address] [id number] [place] [address] 14 Nov, 2014 [facility] [address] [place] [id number] [place] [address] Nov, [facility] [address] [place] [id number] [place] [address] Mar, [facility] [address] [place] [id number] [place] [address] Mar, [facility] [address] [place] [id number] [place] [address] Feb, [facility] [address] [place] [address] [id number] [place] [address] Feb, [facility] [address] [place] [id number] [place] [address] Jan, [facility] [address] [place] [id number] [place] [address] Jan, [facility] [id number] [place] [address] Jan, [facility] [address] [id number] [place] [address] Jan, [facility] [address] [place] [address] [id number] [place] [address] Jan, [facility] [address] [id number] [place] [address] Jan, [facility] [address] [place] [address] [id number] [place] [address] Nov, [facility] [address] [place] [id number] [place] [address] Nov, [facility] [address] [place] [address] [id number] [place] [address] Nov, [facility] [place] [facility] [address] [id number] [facility] [place] [address] Nov, [facility] [place] [facility] [address] [facility] [id number] [place] [address] Nov, [facility] [place] [facility] [address] [id number] [place] [address] Nov, [facility] [place] [facility] [address] [id number] [place] [address] Nov, [facility] [place] [facility] [address] [id number] [place] [address] Nov, [facility] [place] [facility] [address] [id number] [place] [address] Nov, [facility] [place] [facility] [address] [id number] [place] [address] Nov, [facility] [place] [facility] [address] [id number] [place] [address] Nov, [facility] [place] [facility] [address] [id number] [place] [address] Nov, [facility] [place] [facility] [address] [id number] [place] [address] Nov, [facility] [place] [facility] [address] [id number] [place] [address] Nov, [facility] [place] [facility] [address] [id number] [place] [address] Nov, [facility] [place] [facility] [address] [id number] [place] [address] Nov, [facility] [place] [facility] [address] [id number] [place] [address] Nov, [facility] [place] [facility] [address] [id number] [place] [address] Nov, [facility] [place] [facility] [address] [id number] [place] [address] Oct, [facility] [place] [facility] [address] [id number] [place] [address] Oct, [facility] [place] [facility] [address] [facility] [id number] [place] [address] Oct, [facility] [place] [facility] [address] [facility] [id number] [place] [address] Oct, [facility] [place] [facility] [address] [facility] [id number] [facility] [place] [address] Oct, [facility] [place] [facility] [address] [facility] [id number] [facility] [place] [address] Oct, [facility] [place] [facility] [address] [facility] [id number] [facility] [place] [address] Oct, [facility] [place] [facility] [address] [facility] [id number] [place] [address] Oct, [facility] [place] [facility] [address] [facility] [id number] [place] [address] Oct, [facility] [place] [facility] [address] [id number] [place] [address] Oct, [facility] [place] [facility] [address] [facility] [id number] [facility] [place] [address] Sep, [facility] [place] [facility] [address] [id number] [place] [address] Sep, [facility] [place] [facility] [address] [facility] [id number] [place] [address] Sep, [facility] [place] [facility] [address] [id number] [place] [address] Sep, [facility] [place] [facility] [address] [facility] [id number] [place] [address] Sep, [facility] [place] [facility] [address] [facility] [id number] [place] [address] Sep, [facility] [place] [facility] [address] [facility] [id number] [place] [address] Aug, [facility] [place] [facility] [address] [id number] [place] [address] Aug, [facility] [place] [facility] [address] [id number] [place] [address] 15 Aug, 2013 [facility] [place] [facility] [address] [id number] [place] [address] 14 Aug, 2013 [facility] [place] [facility] [address] [id number] [place] [address] 14 Aug, 2013 [facility] [place] [facility] [address] [id number] [place] [address] Aug, [facility] [place] [facility] [address] [id number] [place] [address] Aug, [facility] [place] [facility] [address] [id number] [place] [address] Aug, [facility] [place] [facility] [address] [id number] [place] [address] Aug, [facility] [place] [facility] [address] [id number] [place] [address] Jul, [facility] [place] [facility] [address] [id number] [place] [address] Jul, [facility] [place] [facility] [address] [id number] [place] [address] Jul, [facility] [place] [facility] [address] [id number] [place] [address] Jul, [facility] [place] [facility] [address] [id number] [place] [address] Jun, [facility] [place] [facility] [address] [id number] [place] [address] Jun, [facility] [place] [facility] [address] [id number] [place] [address] May, [facility] [place] [facility] [address] [place] [id number] [place] [address] May, [facility] [place] [facility] [address] [id number] [place] [address] May, [facility] [place] [facility] [address] [id number] [place] [address] May, [facility] [address] [id number] [place] [address] Apr, [facility] [address] [id number] [place] [address] Apr, [facility] [address] [id number] [place] [address] 17 Apr, 2013 IMMUNIZATIONS No Known Immunizations SOCIAL HISTORY Never Assessed REASON FOR VISIT PLAN OF CARE VITAL SIGNS Height 64 in 2013 Weight 155.1 lbs 2013 Temperature 97.6 degrees Fahrenheit 2013 Heart Rate 84 bpm 2013 Respiratory Rate 18 2013 Blood pressure systolic 102 mmHg 2013 Blood pressure diastolic 62 mmHg 2013 MEDICATIONS Unknown Medications RESULTS No Results PROCEDURES Procedure Date Ordered Result Body Site STREP CULTURE 2013 URINE-NO MICRO 2013 INSTRUCTIONS MEDICATIONS ADMINISTERED No Known Medications MEDICAL (GENERAL) HISTORY Type Description Date Surgical History tonsils a nd adenoids remove Surgical History double masectomy Hospitalization History surgery Hospitalization History childbirth
--- OUTSIDE RECORDS SUMMARY | 2019-11-10 14:33 | XMS REPORT ---
Author Author Michael RICHARD Organization [facility] Address [address] [place] [address] Care Team Providers Care Mortgage Counselor Name Role Phone EAN RICHARD Unavailable PROBLEMS Type Condition ICD9-CM Code [id number] Code Onset Dates Condition S tatus SNOMED Code Problem Rtwsrq-nx-iwle transgender person F64.0 Active [id number] Problem Recurrent major depressive disorder, in full remission F33.42 Active 99496069 ALLERGIES No Information ENCOUNTERS Encounter Location Date Diagnosis [place] [address] [address] Oct, [facility] [address] [address] Oct, [facility] [address] [address] Oct, [place] [address] [address] Sep, [place] [address] [address] Sep, Third trimester Z34.93 [place] [address] [address] 12 Sep, 2019 Third trimester Z34.93 [place] [address] [address] Aug, Third trimester Z34.93 and Enc ounter for immunization Z23 [place] [address] [address] 14 Aug, 2019 [place] [address] [address] 13 Aug, 2019 Second trimester Z34.92 [place] [address] [address] 17 Jul, 2019 Recurrent major depressive disorder, in full remission F33.42 [place] [address] [address] Jul, Second trimester Z34.92 and 24 weeks gestation of Z3A.24 [place] [address] [address] Jun, Second trimester Z34.92 ; Enco unter for immunization Z23 and Second trimester Z33.1 [place] [address] [address] Jun, Second trimester fetus Z34.92 [place] [address] [address] May, [place] [address] [address] May, Second trimester Z34.92 ; Seco nd trimester Z33.1 ; Encounter for immunization Z23 ; Recurrent major depressive disorder, in full remission F33.42 and 16 weeks gestation of Z3A.16 [place] [address] [address] May, Second trimester Z33.1 [place] [address] [address] Apr, First trimester Z34.91 and 12 weeks gestation of Z3A.12 [place] [address] [address] Apr, [place] [address] [address] Apr, [place] [address] [address] Apr, First trimester Z34.91 [place] [address] [address] Mar, [place] [address] [address] Mar, Positive test Z32.01 ; First t rimester Z34.91 ; Nausea and vomiting during O21.9 and 8 weeks gestation of Z3A.08 [place] [address] [address] Mar, [place] [address] [address] Mar, [place] [address] [address] December, Encounter for IUD removal Z30.432 [place] [address] [address] Nov, [place] [address] [address] Oct, Pelvic pain R10.2 [place] [address] [address] Oct, Pelvic pain R10.2 [place] [address] [address] Oct, Upkeob-uk-eson transgender person F64.0 [place] [address] [address] Oct, Kxdpka-lx-euim transgender person F64.0 ; Pelvic pain R10.2 and IUD surveillance Z30.431 [place] [address] [address] Sep, [place] [address] [address] Aug, [place] [address] [address] Feb, Surveillance of previously prescribed in trauterine contraceptive device V25.42 [place] [address] [address] Nov, [facility] [place] [facility] [address] [id number] [place] [address] Nov, [facility] [place] [facility] [address] [facility] [id number] [place] [address] Mar, [facility] [place] [facility] [address] [id number] [place] [address] Mar, [facility] [place] [facility] [address] [id number] [place] [address] Feb, [facility] [place] [facility] [address] [facility] [id number] [place] [address] Feb, [facility] [place] [facility] [address] [id number] [place] [address] Jan, [facility] [place] [facility] [address] [id number] [place] [address] Jan, [facility] [place] [facility] [address] [id number] [place] [address] Jan, [facility] [place] [facility] [address] [id number] [place] [address] Jan, [facility] [place] [facility] [address] [id number] [place] [address] Jan, [facility] [place] [facility] [address] [id number] [place] [address] Jan, [facility] [place] [facility] [address] [id number] [place] [address] Nov, [facility] [place] [facility] [address] [id number] [place] [address] Nov, [facility] [place] [facility] [address] [id number] [place] [address] Nov, [facility] [place] [facility] [address] [id number] [place] [address] Nov, [facility] [place] [facility] [address] [id number] [place] [address] Nov, [facility] [place] [facility] [address] [id number] [place] [address] Nov, [facility] [place] [facility] [address] [facility] [id number] [place] [address] Nov, [facility] [place] [facility] [address] [facility] [id number] [facility] [place] [address] Nov, [facility] [place] [facility] [address] [id number] [place] [address] Nov, [facility] [place] [facility] [address] [id number] [place] [address] Nov, [facility] [place] [facility] [address] [facility] [id number] [place] [address] Nov, [facility] [place] [facility] [address] [id number] [place] [address] Nov, [facility] [place] [facility] [address] [id number] [place] [address] Nov, [facility] [place] [facility] [address] [id number] [place] [address] Nov, [facility] [place] [facility] [address] [id number] [place] [address] Nov, [facility] [place] [facility] [address] [id number] [place] [address] Nov, [facility] [place] [facility] [address] [id number] [place] [address] Nov, [facility] [place] [facility] [address] [id number] [place] [address] Nov, [facility] [place] [facility] [address] [id number] [place] [address] Oct, [facility] [place] [facility] [address] [id number] [place] [address] Oct, [facility] [place] [facility] [address] [id number] [place] [address] Oct, [facility] [place] [facility] [address] [id number] [place] [address] Oct, [facility] [place] [facility] [address] [id number] [place] [address] Oct, [facility] [place] [facility] [address] [facility] [id number] [facility] [place] [address] Oct, [facility] [place] [facility] [address] [facility] [id number] [place] [address] Oct, [facility] [place] [facility] [address] [id number] [place] [address] Oct, [facility] [place] [facility] [address] [facility] [id number] [place] [address] Oct, [facility] [place] [facility] [address] [facility] [id number] [place] [address] Oct, [facility] [place] [facility] [address] [id number] [place] [address] Sep, [facility] [place] [facility] [address] [id number] [place] [address] Sep, [facility] [place] [facility] [address] [id number] [place] [address] Sep, [facility] [place] [facility] [address] [facility] [id number] [place] [address] Sep, [facility] [place] [facility] [address] [id number] [place] [address] Sep, [facility] [place] [facility] [address] [id number] [place] [address] Sep, [facility] [place] [facility] [address] [id number] [place] [address] Aug, [facility] [place] [facility] [address] [facility] [id number] [place] [address] Aug, [facility] [place] [facility] [address] [id number] [place] [address] 15 Aug, 2013 [facility] [place] [facility] [address] [facility] [id number] [place] [address] Aug, [facility] [place] [facility] [address] [id number] [place] [address] Aug, [facility] [place] [facility] [address] [id number] [place] [address] 14 Aug, 2013 [facility] [place] [facility] [address] [id number] [place] [address] Aug, [facility] [place] [facility] [address] [id number] [place] [address] Aug, [facility] [place] [facility] [address] [id number] [place] [address] Aug, [facility] [place] [facility] [address] [id number] [place] [address] Jul, [facility] [place] [facility] [address] [place] [id number] [place] [address] Jul, [facility] [place] [facility] [address] [id number] [place] [address] Jul, [facility] [id number] [place] [address] Jul, [facility] [address] [id number] [place] [address] Jun, [facility] [id number] [place] [address] Jun, [facility] [address] [id number] [place] [address] May, [facility] [address] [id number] [place] [address] May, [facility] [address] [id number] [place] [address] 17 May, 2013 [facility] [address] [id number] [place] [address] 17 May, 2013 [facility] [address] [id number] [place] [address] 19 Apr, 2013 [facility] [address] [id number] [place] [address] 18 Apr, 2013 [facility] [address] [id number] [place] [address] Apr, IMMUNIZATIONS No Known Immunizations SOCIAL HISTORY Never Assessed REASON FOR VISIT PLAN OF CARE VITAL SIGNS Height 64 in 2013-11-15 Weight 156.7 lbs 2013-11-15 Temperature 97.6 degrees Fahrenheit 2013-11-15 Heart Rate 80 bpm 2013-11-15 Respiratory Rate 18 2013-11-15 Blood pressure systolic 114 mmHg 2013-11-15 Blood pressure diastolic 78 mmHg 2013-11-15 MEDICATIONS Unknown Medications RESULTS No Results PROCEDURES Procedure Date Ordered Result Body Site URINE-NO MICRO November 15, 2013 INSTRUCTIONS MEDICATIONS ADMINISTERED No Known Medications MEDICAL (GENERAL) HISTORY Type Description Date Surgical History tonsils a nd adenoids remove Surgical History double masectomy Hospitalization History surgery Hospitalization History childbirth
--- OUTSIDE RECORDS SUMMARY | 2019-11-10 14:33 | XMS REPORT ---
Author Author Michael Hope Organization [facility] Address [address] [place] [address] Care Team Providers Care Creative Arts Music Therapist Name Role Phone JULIO Hope Unavailable PROBLEMS Type Condition ICD9-CM Code AAF92-[id number] Code Onset Dates Condition S tatus SNOMED Code Problem Ipgbiv-vp-arjh transgender person F64.0 Active 303863609 Problem Recurrent major depressive disorder, in full remission F33.42 Active 22788701 ALLERGIES No Information ENCOUNTERS Encounter Location Date Diagnosis [place] [address] [address] Oct, [facility] [address] [address] Oct, [facility] [address] [address] Oct, [facility] [address] [address] Sep, [facility] [address] [address] Sep, Third trimester Z34.93 [place] [address] [address] Sep, Third trimester Z34.93 [place] [address] [address] Aug, Third trimester Z34.93 and Enc ounter for immunization Z23 [place] [address] [address] Aug, [place] [address] [address] Aug, Second trimester Z34.92 [place] [address] [address] 17 Jul, 2019 Recurrent major depressive disorder, in full remission F33.42 [place] [address] [address] Jul, Second trimester Z34.92 and 24 weeks gestation of Z3A.24 [place] [address] [address] Jun, Second trimester Z34.92 ; Enco unter for immunization Z23 and Second trimester Z33.1 [place] [address] [address] Jun, Second trimester fetus Z34.92 [place] [address] [address] May, [place] [address] [address] May, Second trimester Z34.92 ; Seco nd trimester Z33.1 ; Encounter for immunization Z23 ; Recurrent major depressive disorder, in full remission F33.42 and 16 weeks gestation of Z3A.16 [place] [address] [address] May, Second trimester Z33.1 [place] [address] [address] Apr, First trimester Z34.91 and 12 weeks gestation of Z3A.12 [place] [address] [address] Apr, [place] [address] [address] Apr, [place] [address] [address] Apr, First trimester Z34.91 [place] [address] [address] Mar, [place] [address] [address] Mar, Positive test Z32.01 ; First t rimester Z34.91 ; Nausea and vomiting during O21.9 and 8 weeks gestation of Z3A.08 [place] [address] [address] Mar, [place] [address] [address] Mar, [place] [address] [address] December, Encounter for IUD removal Z30.432 [place] [address] [address] Nov, [place] [address] [address] Oct, Pelvic pain R10.2 [place] [address] [address] Oct, Pelvic pain R10.2 [place] [address] [address] Oct, Pyjurr-lo-rixy transgender person F64.0 [place] [address] [address] Oct, Isycvd-qj-zprn transgender person F64.0 ; Pelvic pain R10.2 and IUD surveillance Z30.431 [place] [address] [address] Sep, [place] [address] [address] Aug, [place] [address] [address] Feb, Surveillance of previously prescribed in trauterine contraceptive device V25.42 [place] [address] [address] Nov, [facility] [place] [facility] [address] [facility] [id number] [place] [address] Nov, [facility] [place] [facility] [address] [id number] [place] [address] Mar, [facility] [place] [facility] [address] [id number] [place] [address] Mar, [facility] [place] [facility] [address] [id number] [place] [address] Feb, [facility] [place] [facility] [address] [id number] [place] [address] Feb, [facility] [place] [facility] [address] [id number] [place] [address] Jan, [facility] [place] [facility] [address] [id number] [place] [address] Jan, [facility] [place] [facility] [address] [id number] [place] [address] Jan, [facility] [place] [facility] [address] [id number] [place] [address] Jan, [facility] [place] [facility] [address] [id number] [place] [address] Jan, [facility] [place] [facility] [address] [id number] [place] [address] Jan, [facility] [place] [facility] [address] [id number] [place] [address] Nov, [facility] [place] [facility] [address] [id number] [place] [address] 30 Nov, 2013 [facility] [place] [facility] [address] [id number] [place] [address] Nov, [facility] [place] [facility] [address] [id number] [place] [address] Nov, [facility] [place] [facility] [address] [id number] [place] [address] Nov, [facility] [place] [facility] [address] [id number] [place] [address] 17 Nov, 2013 [facility] [place] [facility] [address] [facility] [id number] [place] [address] Nov, [facility] [place] [facility] [address] [facility] [id number] [facility] [address] Nov, [facility] [place] [facility] [address] [id number] [place] [address] Nov, [facility] [place] [facility] [address] [id number] [place] [address] Nov, [facility] [place] [facility] [address] [facility] [id number] [place] [address] Nov, [facility] [place] [facility] [address] [id number] [place] [address] Nov, [facility] [place] [facility] [address] [id number] [place] [address] Nov, [facility] [place] [facility] [address] [id number] [place] [address] Nov, [facility] [place] [facility] [address] [id number] [place] [address] Nov, [facility] [place] [facility] [address] [id number] [place] [address] Nov, [facility] [place] [facility] [address] [id number] [place] [address] Nov, [facility] [place] [facility] [address] [id number] [place] [address] Nov, [facility] [place] [facility] [address] [facility] [id number] [place] [address] Oct, [facility] [place] [facility] [address] [facility] [id number] [place] [address] Oct, [facility] [place] [facility] [address] [id number] [place] [address] Oct, [facility] [place] [facility] [address] [id number] [place] [address] Oct, [facility] [place] [facility] [address] [id number] [place] [address] Oct, [facility] [place] [facility] [address] [facility] [id number] [facility] [address] Oct, [facility] [place] [facility] [address] [facility] [id number] [place] [address] Oct, [facility] [place] [facility] [address] [facility] [id number] [place] [address] Oct, [facility] [place] [facility] [address] [facility] [id number] [place] [address] Oct, [facility] [place] [facility] [address] [facility] [id number] [place] [address] Oct, [facility] [place] [facility] [address] [id number] [place] [address] Sep, [facility] [place] [facility] [address] [id number] [place] [address] Sep, [facility] [place] [facility] [address] [id number] [place] [address] Sep, [facility] [place] [facility] [address] [facility] [id number] [place] [address] Sep, [facility] [place] [facility] [address] [id number] [place] [address] Sep, [facility] [place] [facility] [address] [id number] [place] [address] Sep, [facility] [place] [facility] [address] [id number] [place] [address] Aug, [facility] [place] [facility] [address] [facility] [id number] [place] [address] Aug, [facility] [place] [facility] [address] [id number] [place] [address] 15 Aug, 2013 [facility] [place] [facility] [address] [facility] [id number] [place] [address] Aug, [facility] [place] [facility] [address] [id number] [place] [address] Aug, [facility] [address] [id number] [place] [address] Aug, [facility] [place] [facility] [address] [id number] [place] [address] Aug, [facility] [place] [facility] [address] [id number] [place] [address] Aug, [facility] [place] [facility] [address] [id number] [place] [address] Aug, [facility] [place] [facility] [address] [id number] [place] [address] Jul, [facility] [place] [facility] [address] [id number] [place] [address] Jul, [facility] [place] [facility] [address] [id number] [place] [address] Jul, [facility] [place] [facility] [address] [place] [id number] [place] [address] Jul, [facility] [place] [facility] [address] [id number] [place] [address] Jun, [facility] [place] [facility] [address] [id number] [place] [address] Jun, [facility] [place] [facility] [address] [id number] [place] [address] May, [facility] [place] [facility] [address] [id number] [place] [address] May, [facility] [place] [facility] [address] [id number] [place] [address] May, [facility] [place] [facility] [address] [id number] [place] [address] May, [facility] [place] [facility] [address] [id number] [place] [address] 19 Apr, 2013 [facility] [place] [facility] [address] [id number] [place] [address] 18 Sep2012 [facility] [place] [facility] [address] [id number] [place] [address] Apr, IMMUNIZATIONS No Known Immunizations SOCIAL HISTORY Never Assessed REASON FOR VISIT PLAN OF CARE VITAL SIGNS MEDICATIONS Unknown Medications RESULTS No Results PROCEDURES No Known procedures INSTRUCTIONS MEDICATIONS ADMINISTERED No Known Medications MEDICAL (GENERAL) HISTORY Type Description Date Surgical History tonsils a nd adenoids remove Surgical History double masectomy Hospitalization History surgery Hospitalization History childbirth
--- OUTSIDE RECORDS SUMMARY | 2019-11-10 14:33 | XMS REPORT ---
Author Author Michael MINAYA ANA MARÍA [facility] Address [address] [place] [address] Care Team Providers Care State Assessed Properties Director Name Role Phone ANA MARÍA MINAYA Unavailable PROBLEMS Type Condition ICD9-CM Code KDH33-SR Code Onset Dates Condition S tatus SNOMED Code Problem Eyubzc-tg-fhyt transgender person F64.0 Active [id number] Problem Recurrent major depressive disorder, in full remission F33.42 Active [id number] ALLERGIES No Information ENCOUNTERS Encounter Location Date Diagnosis [place] [address] [address] Oct, [address] [address] Oct, [place] [address] [address] Oct, [address] [address] Sep, Third trimester Z34.93 and 34 weeks gestation of Z3A.34 [place] [address] [address] Sep, Third trimester Z34.93 [place] [address] [address] Sep, Third trimester Z34.93 [place] [address] [address] Aug, Third trimester Z34.93 and Enc ounter for immunization Z23 [place] [address] [address] 14 Aug, 2019 [place] [address] [address] Aug, Second trimester Z34.92 [place] [address] [address] Jul, Recurrent major depressive disorder, in full remission F33.42 [place] [address] [address] Jul, Second trimester Z34.92 and 24 weeks gestation of Z3A.24 [place] [address] [address] Jun, Second trimester Z34.92 ; Enco unter for immunization Z23 and Second trimester Z33.1 [place] [address] [address] Jun, Second trimester fetus Z34.92 [place] [address] [address] May, [place] [address] [address] May, Second trimester Z34.92 ; Seco nd trimester Z33.1 ; Encounter for immunization Z23 ; Recurrent major depressive disorder, in full remission F33.42 and 16 weeks gestation of Z3A.16 [place] [address] [address] 14 May, 2019 Second trimester Z33.1 [place] [address] [address] 23 Apr, 2019 First trimester Z34.91 and 12 weeks gestation of Z3A.12 [place] [address] [address] Apr, [place] [address] [address] Apr, [place] [address] [address] Apr, First trimester Z34.91 [place] [address] [address] Mar, [place] [address] [address] Mar, Positive test Z32.01 ; First t rimester Z34.91 ; Nausea and vomiting during O21.9 and 8 weeks gestation of Z3A.08 [place] [address] [address] Mar, [place] [address] [address] Mar, [place] [address] [address] December, Encounter for IUD removal Z30.432 [place] [address] [address] Nov, [place] [address] [address] Oct, Pelvic pain R10.2 [place] [address] [address] Oct, Pelvic pain R10.2 [place] [address] [address] Oct, Enlcuf-bb-razp transgender person F64.0 [place] [address] [address] Oct, Qwxwfi-md-nghl transgender person F64.0 ; Pelvic pain R10.2 and IUD surveillance Z30.431 [place] [address] [address] Sep, [place] [address] [address] Aug, [place] [address] [address] Feb, Surveillance of previously prescribed in trauterine contraceptive device V25.42 [place] [address] [address] 14 Nov, 2014 [facility] [place] [facility] [address] [facility] [id number] [facility] [place] [address] Nov, [facility] [place] [facility] [address] [facility] [id number] [facility] [place] [address] Mar, [facility] [place] [facility] [address] [id number] [facility] [place] [address] Mar, [facility] [place] [facility] [address] [id number] [place] [address] Feb, [facility] [place] [facility] [address] [facility] [id number] [facility] [place] [address] Feb, [facility] [place] [facility] [address] [id number] [place] [address] Jan, [facility] [place] [facility] [address] [id number] [place] [address] Jan, [facility] [place] [facility] [address] [id number] [place] [address] Jan, [facility] [place] [facility] [address] [id number] [facility] [place] [address] Jan, [facility] [place] [facility] [address] [id number] [place] [address] Jan, [facility] [place] [facility] [address] [id number] [place] [address] Jan, [facility] [place] [facility] [address] [id number] [place] [address] Nov, [facility] [place] [facility] [address] [id number] [facility] [place] [address] Nov, [facility] [place] [facility] [address] [id number] [place] [address] Nov, [facility] [place] [facility] [address] [id number] [place] [address] Nov, [facility] [place] [facility] [address] [id number] [place] [address] Nov, [facility] [place] [facility] [address] [id number] [facility] [place] [address] 17 Nov, 2013 [facility] [place] [facility] [address] [id number] [place] [address] 15 Nov, 2013 [facility] [place] [facility] [address] [facility] [id number] [place] [address] Nov, [facility] [place] [facility] [address] [id number] [place] [address] Nov, [facility] [place] [facility] [address] [id number] [place] [address] Nov, [facility] [place] [facility] [address] [facility] [id number] [place] [address] Nov, [facility] [place] [facility] [address] [id number] [place] [address] Nov, [facility] [place] [facility] [address] [id number] [place] [address] Nov, [facility] [place] [facility] [address] [id number] [place] [address] Nov, [facility] [place] [facility] [address] [id number] [place] [address] Nov, [facility] [place] [facility] [address] [id number] [place] [address] Nov, [facility] [place] [facility] [address] [id number] [place] [address] Nov, [facility] [place] [facility] [address] [id number] [place] [address] Nov, [facility] [place] [facility] [address] [facility] [id number] [place] [address] Oct, [facility] [place] [facility] [address] [id number] [place] [address] Oct, [facility] [place] [facility] [address] [id number] [place] [address] Oct, [facility] [place] [facility] [address] [id number] [place] [address] Oct, [facility] [place] [facility] [address] [facility] [id number] [place] [address] Oct, [facility] [place] [facility] [address] [facility] [id number] [place] [address] Oct, [facility] [place] [facility] [address] [facility] [id number] [place] [address] Oct, [facility] [place] [facility] [address] [id number] [place] [address] Oct, [facility] [place] [facility] [address] [facility] [id number] [place] [address] Oct, [facility] [place] [facility] [address] [id number] [place] [address] Oct, [facility] [place] [facility] [address] [id number] [place] [address] Sep, [facility] [place] [facility] [address] [id number] [place] [address] Sep, [facility] [place] [facility] [address] [id number] [place] [address] Sep, [facility] [place] [facility] [address] [id number] [place] [address] Sep, [facility] [place] [facility] [address] [id number] [place] [address] Sep, [facility] [place] [facility] [address] [id number] [place] [address] Sep, [facility] [place] [facility] [address] [facility] [id number] [place] [address] Aug, [facility] [place] [facility] [address] [facility] [id number] [place] [address] Aug, [facility] [place] [facility] [address] [facility] [id number] [place] [address] 15 Aug, 2013 [facility] [place] [facility] [address] [id number] [place] [address] 14 Aug, 2013 [facility] [place] [facility] [address] [id number] [place] [address] 14 Aug, 2013 [facility] [place] [facility] [address] [id number] [place] [address] Aug, [facility] [place] [facility] [address] [id number] [place] [address] Aug, [facility] [place] [facility] [address] [id number] [place] [address] Aug, [facility] [place] [facility] [address] [id number] [place] [address] Aug, [facility] [place] [facility] [address] [id number] [place] [address] Jul, [facility] [place] [facility] [address] [id number] [place] [address] Jul, [facility] [place] [facility] [address] [place] [id number] [place] [address] Jul, [facility] [place] [facility] [address] [place] [id number] [place] [address] Jul, [facility] [place] [facility] [address] [id number] [place] [address] Jun, [facility] [place] [facility] [address] [place] [id number] [place] [address] Jun, [facility] [place] [facility] [address] [id number] [place] [address] May, [facility] [address] [id number] [place] [address] May, [facility] [address] [id number] [place] [address] May, [facility] [address] [id number] [place] [address] May, [facility] [address] [id number] [place] [address] 19 Apr, 2013 [facility] [address] [id number] [place] [address] 18 Apr, 2013 [facility] [address] [facility] [id number] [place] [address] 17 Apr, 2013 IMMUNIZATIONS No Known Immunizations [...]
--- OUTSIDE RECORDS SUMMARY | 2019-11-10 14:33 | XMS REPORT ---
Author Author Michael RICHARD Organization [facility] Address [address] [place] [address] Care Team Providers Care Supervising Bailiff Name Role Phone EAN RICHARD Unavailable PROBLEMS Type Condition ICD9-CM Code [id number] Code Onset Dates Condition S tatus SNOMED Code Problem Yjvocc-lc-lcin transgender person F64.0 Active 645436475 Problem Recurrent major depressive disorder, in full remission F33.42 Active 82211860 ALLERGIES No Information ENCOUNTERS Encounter Location Date Diagnosis [place] [address] [address] Oct, [facility] [address] [address] Oct, [facility] [address] [address] Oct, [place] [address] [address] Sep, [place] [address] [address] Sep, Third trimester Z34.93 [place] [address] [address] 12 Sep, 2019 Third trimester Z34.93 [place] [address] [address] Aug, Third trimester Z34.93 and Enc ounter for immunization Z23 [place] [address] [address] 14 Aug, 2019 [place] [address] [address] 13 Aug, 2019 Second trimester Z34.92 [place] [address] [address] 17 Jul, 2019 Recurrent major depressive disorder, in full remission F33.42 [place] [address] [address] Jul, Second trimester Z34.92 and 24 weeks gestation of Z3A.24 [place] [address] [address] Jun, Second trimester Z34.92 ; Enco unter for immunization Z23 and Second trimester Z33.1 [place] [address] [address] Jun, Second trimester fetus Z34.92 [place] [address] [address] May, [place] [address] [address] May, Second trimester Z34.92 ; Seco nd trimester Z33.1 ; Encounter for immunization Z23 ; Recurrent major depressive disorder, in full remission F33.42 and 16 weeks gestation of Z3A.16 [place] [address] [address] May, Second trimester Z33.1 [place] [address] [address] Apr, First trimester Z34.91 and 12 weeks gestation of Z3A.12 [place] [address] [address] Apr, [place] [address] [address] Apr, [place] [address] [address] Apr, First trimester Z34.91 [place] [address] [address] Mar, [place] [address] [address] Mar, Positive test Z32.01 ; First t rimester Z34.91 ; Nausea and vomiting during O21.9 and 8 weeks gestation of Z3A.08 [place] [address] [address] Mar, [place] [address] [address] Mar, [place] [address] [address] December, Encounter for IUD removal Z30.432 [place] [address] [address] Nov, [place] [address] [address] Oct, Pelvic pain R10.2 [place] [address] [address] Oct, Pelvic pain R10.2 [place] [address] [address] Oct, Ejexhl-dp-qpfz transgender person F64.0 [place] [address] [address] Oct, Uadtuo-dg-fymi transgender person F64.0 ; Pelvic pain R10.2 and IUD surveillance Z30.431 [place] [address] [address] Sep, [place] [address] [address] Aug, [place] [address] [address] Feb, Surveillance of previously prescribed in trauterine contraceptive device V25.42 [place] [address] [address] Nov, [facility] [place] [facility] [address] [id number] [place] [address] Nov, [facility] [place] [facility] [address] [facility] [id number] [place] [address] Mar, [facility] [place] [facility] [address] [id number] [place] [address] Mar, [facility] [place] [facility] [address] [id number] [place] [address] Feb, [facility] [place] [facility] [address] [facility] [id number] [place] [address] Feb, [facility] [place] [facility] [address] [id number] [place] [address] Jan, [facility] [place] [facility] [address] [id number] [place] [address] Jan, [facility] [place] [facility] [address] [id number] [place] [address] Jan, [facility] [place] [facility] [address] [id number] [place] [address] Jan, [facility] [place] [facility] [address] [id number] [place] [address] Jan, [facility] [place] [facility] [address] [id number] [place] [address] Jan, [facility] [place] [facility] [address] [id number] [place] [address] Nov, [facility] [place] [facility] [address] [id number] [place] [address] Nov, [facility] [place] [facility] [address] [id number] [place] [address] Nov, [facility] [place] [facility] [address] [id number] [place] [address] Nov, [facility] [place] [facility] [address] [id number] [place] [address] Nov, [facility] [place] [facility] [address] [id number] [place] [address] Nov, [facility] [place] [facility] [address] [facility] [id number] [place] [address] Nov, [facility] [place] [facility] [address] [facility] [id number] [facility] [place] [address] Nov, [facility] [place] [facility] [address] [id number] [place] [address] Nov, [facility] [place] [facility] [address] [id number] [place] [address] Nov, [facility] [place] [facility] [address] [facility] [id number] [place] [address] Nov, [facility] [place] [facility] [address] [id number] [place] [address] Nov, [facility] [place] [facility] [address] [id number] [place] [address] Nov, [facility] [place] [facility] [address] [id number] [place] [address] Nov, [facility] [place] [facility] [address] [id number] [place] [address] Nov, [facility] [place] [facility] [address] [id number] [place] [address] Nov, [facility] [place] [facility] [address] [id number] [place] [address] Nov, [facility] [place] [facility] [address] [id number] [place] [address] Nov, [facility] [place] [facility] [address] [id number] [place] [address] Oct, [facility] [place] [facility] [address] [id number] [place] [address] Oct, [facility] [place] [facility] [address] [id number] [place] [address] Oct, [facility] [place] [facility] [address] [id number] [place] [address] Oct, [facility] [place] [facility] [address] [id number] [place] [address] Oct, [facility] [place] [facility] [address] [facility] [id number] [facility] [place] [address] Oct, [facility] [place] [facility] [address] [facility] [id number] [place] [address] Oct, [facility] [place] [facility] [address] [id number] [place] [address] Oct, [facility] [place] [facility] [address] [facility] [id number] [place] [address] Oct, [facility] [place] [facility] [address] [facility] [id number] [place] [address] Oct, [facility] [place] [facility] [address] [id number] [place] [address] Sep, [facility] [place] [facility] [address] [id number] [place] [address] Sep, [facility] [place] [facility] [address] [id number] [place] [address] Sep, [facility] [place] [facility] [address] [facility] [id number] [place] [address] Sep, [facility] [place] [facility] [address] [id number] [place] [address] Sep, [facility] [place] [facility] [address] [id number] [place] [address] Sep, [facility] [place] [facility] [address] [id number] [place] [address] Aug, [facility] [place] [facility] [address] [facility] [id number] [place] [address] Aug, [facility] [place] [facility] [address] [id number] [place] [address] 15 Aug, 2013 [facility] [place] [facility] [address] [facility] [id number] [place] [address] Aug, [facility] [place] [facility] [address] [id number] [place] [address] Aug, [facility] [place] [facility] [address] [id number] [place] [address] 14 Aug, 2013 [facility] [place] [facility] [address] [id number] [place] [address] Aug, [facility] [place] [facility] [address] [id number] [place] [address] Aug, [facility] [place] [facility] [address] [id number] [place] [address] Aug, [facility] [place] [facility] [address] [id number] [place] [address] Jul, [facility] [place] [facility] [address] [place] [id number] [place] [address] Jul, [facility] [place] [facility] [address] [id number] [place] [address] Jul, [facility] [place] [facility] [address] [place] [id number] [place] [address] Jul, [facility] [place] [facility] [address] [id number] [place] [address] Jun, [facility] [place] [address] [place] [id number] [place] [address] Jun, [facility] [place] [facility] [address] [id number] [place] [address] May, [facility] [place] [facility] [address] [id number] [place] [address] May, [facility] [place] [facility] [address] [id number] [place] [address] 17 May, 2013 [facility] [place] [facility] [address] [id number] [place] [address] 17 May, 2013 [facility] [place] [facility] [address] [id number] [place] [address] 19 Apr, 2013 [facility] [place] [facility] [address] [id number] [place] [address] 18 Apr, 2013 [facility] [place] [facility] [address] [id number] [place] [address] Apr, IMMUNIZATIONS No Known Immunizations SOCIAL HISTORY Never Assessed REASON FOR VISIT PLAN OF CARE VITAL SIGNS MEDICATIONS Unknown Medications RESULTS No Results PROCEDURES No Known procedures INSTRUCTIONS MEDICATIONS ADMINISTERED No Known Medications MEDICAL (GENERAL) HISTORY Type Description Date Surgical History tonsils a nd adenoids remove Surgical History double masectomy Hospitalization History surgery Hospitalization History childbirth
--- OUTSIDE RECORDS SUMMARY | 2019-11-10 14:33 | XMS REPORT ---
Author Author Michael RICHARD Organization [facility] Address [address] [place] [address] Care Team Providers Care Dog Or Animal Sitter Name Role Phone EAN RICHARD Unavailable PROBLEMS Type Condition ICD9-CM Code HUR20-ZS Code Onset Dates Condition S tatus SNOMED Code Problem Cyqmfc-fu-enic transgender person F64.0 Active 079830761 Problem Recurrent major depressive disorder, in full remission F33.42 Active 26055308 ALLERGIES No Information ENCOUNTERS Encounter Location Date Diagnosis [place] [address] [address] Oct, [address] [address] Oct, [address] [address] Oct, [address] [address] Sep, Third trimester Z34.93 and 34 weeks gestation of Z3A.[address] [address] Sep, Third trimester Z34.93 and Fal l (on) (from) other stairs and steps, subsequent encounter W10.8XXD [place] [address] [address] Sep, Third trimester Z34.[address] [address] Aug, Third trimester Z34.93 ; Encou nter for immunization Z23 and 30 weeks gestation of Z3A.30 [place] [address] [address] 14 Aug, 2019 [facility] [address] [address] 13 Aug, 2019 Second trimester Z34.92 [place] [address] [address] 17 Jul, 2019 Recurrent major depressive disorder, in full remission F33.42 [place] [address] [address] Jul, Second trimester Z34.92 and 24 weeks gestation of Z3A.24 [place] [address] [address] Jun, Second trimester Z34.92 ; Enco unter for immunization Z23 and Second trimester Z33.1 [place] [address] [address] Jun, Second trimester fetus Z34.92 [place] [address] [address] May, [place] [address] [address] May, Second trimester Z34.92 ; Seco nd trimester Z33.1 ; Encounter for immunization Z23 ; Recurrent major depressive disorder, in full remission F33.42 and 16 weeks gestation of Z3A.16 [place] [address] [address] 14 May, 2019 Second trimester Z33.1 [place] [address] [address] Apr, First trimester Z34.91 and 12 weeks gestation of Z3A.12 [place] [address] [address] Apr, [place] [address] [address] Apr, [place] [address] [address] Apr, First trimester Z34.91 [facility] [address] [address] Mar, [place] [address] [address] Mar, Positive test Z32.01 ; First t rimester Z34.91 ; Nausea and vomiting during O21.9 and 8 weeks gestation of Z3A.08 [place] [address] [address] Mar, [facility] [address] [address] Mar, [place] [address] [address] December, Encounter for IUD removal Z30.432 [place] [address] [address] Nov, [place] [address] [address] Oct, Pelvic pain R10.2 [place] [address] [address] Oct, Pelvic pain R10.2 [place] [address] [address] Oct, Jsyqol-xv-yfww transgender person F64.0 [place] [address] [address] Oct, Kxhktb-yb-pdhv transgender person F64.0 ; Pelvic pain R10.2 and IUD surveillance Z30.431 [facility] [address] [address] Sep, [place] [address] [address] Aug, [place] [address] [address] Feb, Surveillance of previously prescribed in trauterine contraceptive device V25.42 [facility] [address] [id number] [place] [address] Nov, [facility] [address] [id number] [place] [address] Nov, [facility] [address] [id number] [place] [address] Mar, [facility] [address] [id number] [place] [address] Mar, [facility] [address] [id number] [place] [address] Feb, [facility] [address] [id number] [place] [address] Feb, [facility] [address] [place] [id number] [place] [address] Jan, [facility] [address] [id number] [place] [address] Jan, [facility] [address] [id number] [place] [address] Jan, [facility] [address] [id number] [place] [address] Jan, [facility] [address] [id number] [place] [address] Jan, [facility] [address] [place] [id number] [place] [address] Jan, [facility] [address] [id number] [place] [address] Nov, [facility] [address] [place] [id number] [place] [address] Nov, [facility] [address] [id number] [place] [address] Nov, [facility] [address] [id number] [place] [address] Nov, [facility] [place] [facility] [address] [id number] [place] [address] 17 Nov, 2013 [facility] [place] [facility] [address] [id number] [place] [address] Nov, [facility] [place] [facility] [address] [id number] [place] [address] 15 Nov, 2013 [facility] [place] [facility] [address] [id number] [place] [address] Nov, [facility] [place] [facility] [address] [id number] [place] [address] Nov, [facility] [place] [facility] [address] [id number] [place] [address] Nov, [facility] [place] [facility] [address] [id number] [place] [address] Nov, [facility] [place] [facility] [address] [id number] [place] [address] Nov, [facility] [place] [facility] [address] [id number] [place] [address] Nov, [facility] [place] [facility] [address] [id number] [place] [address] Nov, [facility] [place] [facility] [address] [id number] [place] [address] Nov, [facility] [place] [facility] [address] [id number] [place] [address] Nov, [facility] [place] [facility] [address] [id number] [place] [address] Nov, [facility] [place] [facility] [address] [id number] [place] [address] Nov, [facility] [place] [facility] [address] [id number] [place] [address] Oct, [facility] [place] [facility] [address] [id number] [place] [address] Oct, [facility] [place] [facility] [address] [id number] [place] [address] Oct, [facility] [place] [facility] [address] [facility] [id number] [place] [address] Oct, [facility] [place] [facility] [address] [facility] [id number] [place] [address] Oct, [facility] [place] [facility] [address] [facility] [id number] [place] [address] Oct, [facility] [place] [facility] [address] [facility] [id number] [place] [address] Oct, [facility] [place] [facility] [address] [facility] [id number] [place] [address] Oct, [facility] [place] [facility] [address] [facility] [id number] [place] [address] Oct, [facility] [place] [facility] [address] [facility] [id number] [place] [address] Oct, [facility] [place] [facility] [address] [id number] [place] [address] Sep, [facility] [place] [facility] [address] [facility] [id number] [place] [address] Sep, [facility] [place] [facility] [address] [id number] [place] [address] Sep, [facility] [place] [facility] [address] [facility] [id number] [place] [address] Sep, [facility] [place] [facility] [address] [id number] [place] [address] Sep, [facility] [place] [facility] [address] [facility] [id number] [place] [address] Sep, [facility] [place] [facility] [address] [facility] [id number] [place] [address] Aug, [facility] [place] [facility] [address] [facility] [id number] [place] [address] Aug, [facility] [place] [facility] [address] [id number] [place] [address] Aug, [facility] [place] [facility] [address] [id number] [place] [address] 14 Aug, 2013 [facility] [place] [facility] [address] [id number] [place] [address] Aug, [facility] [place] [facility] [address] [id number] [place] [address] Aug, [facility] [place] [facility] [address] [id number] [place] [address] Aug, [facility] [place] [facility] [address] [id number] [place] [address] Aug, [facility] [place] [facility] [address] [id number] [place] [address] Aug, [facility] [id number] [place] [address] Jul, [facility] [id number] [place] [address] Jul, [facility] [id number] [place] [address] Jul, [facility] [id number] [place] [address] Jul, [facility] [id number] [place] [address] Jun, [facility] [id number] [place] [address] Jun, [facility] [id number] [place] [address] May, [facility] [id number] [place] [address] May, [facility] [id number] [place] [address] May, [facility] [id number] [place] [address] May, [facility] [id number] [place] [address] Apr, [facility] [id number] [place] [address] 18 Apr, 2013 [facility] [id number] [place] [address] 17 Apr, 2013 IMMUNIZATIONS No Known Immunizations [...]
--- OUTSIDE RECORDS SUMMARY | 2019-11-10 14:33 | XMS REPORT ---
Author Author Michael RICHARD [facility] Address [address] [place] [address] Care Team Providers Care Engine Lathe Set Up Operator Tool Name Role Phone EAN RICHARD Unavailable PROBLEMS Type Condition ICD9-CM Code FAW04-NB Code Onset Dates Condition S tatus SNOMED Code Problem Hnkuil-ch-jpkt transgender person F64.0 Active 339442549 Problem Recurrent major depressive disorder, in full remission F33.42 Active 04338084 ALLERGIES No Information ENCOUNTERS Encounter Location Date Diagnosis [address] [address] Oct, [address] [address] Oct, [address] [address] Oct, [address] [address] Sep, Third trimester Z34.93 and 34 weeks gestation of Z3A.[address] [address] Sep, Third trimester Z34.93 [place] [address] [address] Sep, Third trimester Z34.[address] [address] Aug, Third trimester Z34.93 ; Encou nter for immunization Z23 and 30 weeks gestation of Z3A.30 [place] [address] [address] Aug, [place] [address] [place] [address] Aug, Second trimester Z34.92 [place] [address] [address] Jul, Recurrent major depressive disorder, in full remission F33.42 [place] [address] [address] Jul, Second trimester Z34.92 and 24 weeks gestation of Z3A.24 [place] [address] [address] Jun, Second trimester Z34.92 ; Enco unter for immunization Z23 and Second trimester Z33.1 [place] [address] [address] Jun, Second trimester fetus Z34.92 [place] [address] [address] May, [place] [address] [address] May, Second trimester Z34.92 ; Seco nd trimester Z33.1 ; Encounter for immunization Z23 ; Recurrent major depressive disorder, in full remission F33.42 and 16 weeks gestation of Z3A.16 [place] [address] [address] 14 May, 2019 Second trimester Z33.1 [place] [address] [address] Apr, First trimester Z34.91 and 12 weeks gestation of Z3A.12 [place] [address] [address] Apr, [place] [address] [address] Apr, [place] [address] [address] Apr, First trimester Z34.91 [place] [address] [place] [id number] [place] [address] Mar, [place] [address] [address] Mar, Positive test Z32.01 ; First t rimester Z34.91 ; Nausea and vomiting during O21.9 and 8 weeks gestation of Z3A.08 [place] [address] [address] Mar, [facility] [address] [address] Mar, [place] [address] [address] December, Encounter for IUD removal Z30.432 [place] [address] [address] Nov, [place] [address] [address] Oct, Pelvic pain R10.2 [place] [address] [address] Oct, Pelvic pain R10.2 [place] [address] [address] Oct, Rkdwdx-wo-mqxb transgender person F64.0 [place] [address] [address] Oct, Gqoyxj-qh-fuxf transgender person F64.0 ; Pelvic pain R10.2 and IUD surveillance Z30.431 [place] [address] [address] Sep, [place] [address] [address] Aug, [place] [address] [address] Feb, Surveillance of previously prescribed in trauterine contraceptive device V25.42 [place] [address] [id number] [facility] [address] 14 Nov, 2014 [facility] [place] [facility] [address] [id number] [place] [address] Nov, [facility] [place] [facility] [address] [facility] [id number] [place] [address] Mar, [facility] [place] [facility] [address] [id number] [place] [address] Mar, [facility] [place] [facility] [address] [facility] [id number] [place] [address] Feb, [facility] [place] [facility] [address] [facility] [id number] [place] [address] Feb, [facility] [place] [facility] [address] [id number] [place] [address] Jan, [facility] [place] [facility] [address] [id number] [place] [address] Jan, [facility] [place] [facility] [address] [id number] [place] [address] Jan, [facility] [place] [facility] [address] [id number] [place] [address] Jan, [facility] [place] [facility] [address] [id number] [place] [address] Jan, [facility] [place] [facility] [address] [id number] [place] [address] Jan, [facility] [place] [facility] [address] [id number] [place] [address] Nov, [facility] [place] [facility] [address] [facility] [id number] [place] [address] Nov, [facility] [place] [facility] [address] [id number] [place] [address] Nov, [facility] [place] [facility] [address] [id number] [place] [address] Nov, [facility] [place] [facility] [address] [id number] [place] [address] Nov, [facility] [place] [facility] [address] [facility] [id number] [place] [address] Nov, [facility] [place] [facility] [address] [id number] [place] [address] Nov, [facility] [place] [facility] [address] [id number] [place] [address] Nov, [facility] [place] [facility] [address] [id number] [place] [address] Nov, [facility] [place] [facility] [address] [facility] [id number] [place] [address] Nov, [facility] [place] [facility] [address] [id number] [place] [address] Nov, [facility] [place] [facility] [address] [id number] [place] [address] Nov, [facility] [place] [facility] [address] [id number] [place] [address] Nov, [facility] [place] [facility] [address] [id number] [place] [address] Nov, [facility] [place] [facility] [address] [id number] [place] [address] Nov, [facility] [place] [facility] [address] [id number] [place] [address] Nov, [facility] [place] [facility] [address] [id number] [place] [address] Nov, [facility] [place] [facility] [address] [id number] [place] [address] Nov, [facility] [place] [facility] [address] [id number] [place] [address] Oct, [facility] [place] [facility] [address] [id number] [place] [address] Oct, [facility] [place] [facility] [address] [id number] [place] [address] Oct, [facility] [place] [facility] [address] [id number] [place] [address] Oct, [facility] [place] [facility] [address] [facility] [id number] [facility] [address] Oct, [facility] [place] [facility] [address] [facility] [id number] [facility] [address] Oct, [facility] [place] [facility] [address] [id number] [facility] [address] Oct, [facility] [place] [facility] [address] [facility] [id number] [facility] [address] Oct, [facility] [place] [facility] [address] [facility] [id number] [facility] [address] Oct, [facility] [place] [facility] [address] [facility] [id number] [place] [address] Oct, [facility] [place] [facility] [address] [id number] [place] [address] Sep, [facility] [place] [facility] [address] [id number] [place] [address] Sep, [facility] [place] [facility] [address] [facility] [id number] [place] [address] Sep, [facility] [place] [facility] [address] [id number] [place] [address] Sep, [facility] [place] [facility] [address] [id number] [place] [address] Sep, [facility] [place] [facility] [address] [id number] [place] [address] Sep, [facility] [place] [facility] [address] [facility] [id number] [place] [address] Aug, [facility] [place] [facility] [address] [id number] [place] [address] Aug, [facility] [place] [facility] [address] [facility] [id number] [place] [address] 15 Aug, 2013 [facility] [place] [facility] [address] [id number] [place] [address] 14 Aug, 2013 [facility] [place] [facility] [address] [id number] [place] [address] Aug, [facility] [place] [facility] [address] [id number] [place] [address] Aug, [facility] [place] [facility] [address] [id number] [place] [address] Aug, [facility] [place] [facility] [address] [place] [id number] [place] [address] Aug, [facility] [place] [facility] [address] [id number] [place] [address] Aug, [facility] [place] [facility] [address] [id number] [place] [address] Jul, [facility] [place] [facility] [address] [id number] [place] [address] Jul, [facility] [place] [facility] [address] [place] [id number] [place] [address] Jul, [facility] [place] [facility] [address] [id number] [place] [address] Jul, [facility] [place] [facility] [address] [place] [id number] [place] [address] Jun, [facility] [place] [facility] [address] [place] [id number] [place] [address] Jun, [facility] [place] [facility] [address] [place] [id number] [place] [address] May, [facility] [place] [facility] [address] [id number] [place] [address] May, [facility] [place] [facility] [address] [id number] [place] [address] May, [facility] [place] [facility] [address] [place] [id number] [place] [address] May, [facility] [place] [facility] [address] [id number] [place] [address] Apr, [facility] [place] [facility] [address] [place] [id number] [place] [address] Apr, [facility] [address] [facility] [id number] [place] [address] 17 Apr, 2013 IMMUNIZATIONS No Known Immunizations SOCIAL HISTORY Never Assessed REASON FOR VISIT PLAN OF CARE VITAL SIGNS Height 64 in 2013-10-25 Weight 150.3 lbs 2013-10-25 Temperature 97.8 degrees Fahrenheit 2013-10-25 Heart Rate 80 bpm 2013-10-25 Respiratory Rate 18 2013-10-25 Blood pressure systolic 107 mmHg 2013-10-25 Blood pressure diastolic 64 mmHg 2013-10-25 MEDICATIONS Unknown Medications RESULTS No Results PROCEDURES Procedure Date Ordered Result Body Site URINE-NO MICRO October 25, 2013 INSTRUCTIONS MEDICATIONS ADMINISTERED No Known Medications MEDICAL (GENERAL) HISTORY Type Description Date Surgical History tonsils a nd adenoids remove Surgical History double masectomy Hospitalization History surgery Hospitalization History childbirth
--- OUTSIDE RECORDS SUMMARY | 2019-11-10 14:33 | XMS REPORT ---
Author Author Michael RICHARD Organization [facility] Address [address] [place] [address] Care Team Providers Care Pest Control Service Sales Agent Name Role Phone HILARY EAN Unavailable PROBLEMS Type Condition ICD9-CM Code [id number] Code Onset Dates Condition S tatus SNOMED Code Problem Wakndq-mw-cfqq transgender person F64.0 Active [id number] Problem Recurrent major depressive disorder, in full remission F33.42 Active 26040325 ALLERGIES No Information ENCOUNTERS Encounter Location Date Diagnosis [place] [address] [address] Oct, [place] [address] [address] Oct, [place] [address] [address] Oct, [place] [address] [address] Sep, Third trimester Z34.93 [place] [address] [address] Sep, Third trimester Z34.93 [place] [address] [address] Sep, Third trimester Z34.93 [place] [address] [address] Aug, Third trimester Z34.93 and Enc ounter for immunization Z23 [place] [address] [address] 14 Aug, 2019 [place] [address] [address] Aug, Second trimester Z34.92 [place] [address] [address] Jul, Recurrent major depressive disorder, in full remission F33.42 [place] [address] [address] Jul, Second trimester Z34.92 and 24 weeks gestation of Z3A.24 [place] [address] [address] Jun, Second trimester Z34.92 ; Enco unter for immunization Z23 and Second trimester Z33.1 [place] [address] [address] Jun, Second trimester fetus Z34.92 [place] [address] [address] May, [place] [address] [address] May, Second trimester Z34.92 ; Seco nd trimester Z33.1 ; Encounter for immunization Z23 ; Recurrent major depressive disorder, in full remission F33.42 and 16 weeks gestation of Z3A.16 [place] [address] [address] May, Second trimester Z33.1 [place] [address] [address] Apr, First trimester Z34.91 and 12 weeks gestation of Z3A.12 [place] [address] [address] Apr, [place] [address] [address] Apr, [place] [address] [address] Apr, First trimester Z34.91 [place] [address] [address] Mar, [place] [address] [address] Mar, Positive test Z32.01 ; First t rimester Z34.91 ; Nausea and vomiting during O21.9 and 8 weeks gestation of Z3A.08 [place] [address] [address] Mar, [place] [address] [address] Mar, [place] [address] [address] December, Encounter for IUD removal Z30.432 [place] [address] [address] Nov, [place] [address] [address] Oct, Pelvic pain R10.2 [place] [address] [address] Oct, Pelvic pain R10.2 [place] [address] [address] Oct, Tbztcl-sg-tqtv transgender person F64.0 [place] [address] [address] Oct, Dorebi-ud-tbic transgender person F64.0 ; Pelvic pain R10.2 and IUD surveillance Z30.431 [place] [address] [address] Sep, [place] [address] [address] Aug, [place] [address] [address] Feb, Surveillance of previously prescribed in trauterine contraceptive device V25.42 [place] [address] [address] Nov, [facility] [place] [facility] [address] [id number] [place] [address] Nov, [facility] [place] [facility] [address] [id number] [place] [address] Mar, [facility] [place] [facility] [address] [id number] [place] [address] Mar, [facility] [place] [facility] [address] [id number] [place] [address] Feb, [facility] [place] [facility] [address] [facility] [id number] [place] [address] Feb, [facility] [place] [facility] [address] [id number] [place] [address] Jan, [facility] [place] [facility] [address] [id number] [place] [address] Jan, [facility] [place] [facility] [address] [id number] [place] [address] Jan, [facility] [place] [facility] [address] [id number] [place] [address] Jan, [facility] [place] [facility] [address] [id number] [place] [address] Jan, [facility] [place] [facility] [address] [id number] [place] [address] Jan, [facility] [place] [facility] [address] [id number] [place] [address] Nov, [facility] [place] [facility] [address] [id number] [place] [address] Nov, [facility] [place] [facility] [address] [id number] [place] [address] Nov, [facility] [place] [facility] [address] [id number] [place] [address] Nov, [facility] [place] [facility] [address] [id number] [place] [address] Nov, [facility] [place] [facility] [address] [id number] [place] [address] 17 Nov, 2013 [facility] [place] [facility] [address] [facility] [id number] [facility] [place] [address] Nov, [facility] [place] [facility] [address] [id number] [facility] [place] [address] Nov, [facility] [place] [facility] [address] [id number] [facility] [place] [address] Nov, [facility] [place] [facility] [address] [id number] [facility] [place] [address] Nov, [facility] [place] [facility] [address] [id number] [facility] [place] [address] Nov, [facility] [place] [facility] [address] [id number] [place] [address] Nov, [facility] [place] [facility] [address] [id number] [facility] [place] [address] Nov, [facility] [place] [facility] [address] [id number] [place] [address] Nov, [facility] [place] [facility] [address] [id number] [facility] [place] [address] Nov, [facility] [place] [facility] [address] [id number] [place] [address] Nov, [facility] [place] [facility] [address] [id number] [place] [address] Nov, [facility] [place] [facility] [address] [id number] [place] [address] Nov, [facility] [place] [facility] [address] [id number] [facility] [place] [address] Oct, [facility] [place] [facility] [address] [id number] [place] [address] Oct, [facility] [place] [facility] [address] [id number] [place] [address] Oct, [facility] [place] [facility] [address] [id number] [place] [address] Oct, [facility] [place] [facility] [address] [id number] [place] [address] Oct, [facility] [place] [facility] [address] [facility] [id number] [place] [address] Oct, [facility] [place] [facility] [address] [facility] [id number] [place] [address] Oct, [facility] [place] [facility] [address] [id number] [place] [address] Oct, [facility] [place] [facility] [address] [facility] [id number] [place] [address] Oct, [facility] [place] [facility] [address] [id number] [place] [address] Oct, [facility] [place] [facility] [address] [id number] [place] [address] Sep, [facility] [place] [facility] [address] [id number] [place] [address] Sep, [facility] [place] [facility] [address] [id number] [place] [address] Sep, [facility] [place] [facility] [address] [id number] [place] [address] Sep, [facility] [place] [facility] [address] [id number] [place] [address] Sep, [facility] [place] [facility] [address] [id number] [place] [address] Sep, [facility] [place] [facility] [address] [id number] [place] [address] 16 Aug, 2013 [facility] [place] [facility] [address] [facility] [id number] [place] [address] 16 Aug, 2013 [facility] [place] [facility] [address] [id number] [place] [address] 15 Aug, 2013 [facility] [place] [facility] [address] [id number] [place] [address] 14 Aug, 2013 [facility] [place] [facility] [address] [id number] [place] [address] Aug, [facility] [address] [id number] [place] [address] Aug, [facility] [place] [facility] [address] [id number] [place] [address] Aug, [facility] [place] [facility] [address] [id number] [place] [address] Aug, [facility] [place] [facility] [address] [id number] [place] [address] Aug, [facility] [place] [facility] [address] [id number] [place] [address] Jul, [facility] [place] [facility] [address] [id number] [place] [address] Jul, [facility] [place] [facility] [address] [id number] [place] [address] Jul, [facility] [place] [facility] [address] [id number] [place] [address] Jul, [facility] [place] [facility] [address] [id number] [place] [address] Jun, [facility] [place] [facility] [address] [id number] [place] [address] Jun, [facility] [place] [facility] [address] [id number] [place] [address] May, [facility] [place] [facility] [address] [id number] [place] [address] May, [facility] [place] [facility] [address] [id number] [place] [address] May, [facility] [place] [facility] [address] [id number] [place] [address] May, [facility] [place] [facility] [address] [id number] [place] [address] 19 Apr, 2013 [facility] [place] [facility] [address] [id number] [place] [address] 18 Apr, 2013 [facility] [place] [facility] [address] [id number] [place] [address] 17 Apr, 2013 IMMUNIZATIONS No Known Immunizations SOCIAL HISTORY Never Assessed REASON FOR VISIT PLAN OF CARE VITAL SIGNS Height 64 in 2013-09-27 Weight 147.2 lbs 2013-09-27 Temperature 98.6 degrees Fahrenheit 2013-09-27 Heart Rate 84 bpm 2013-09-27 Respiratory Rate 20 2013-09-27 Blood pressure systolic 106 mmHg 2013-09-27 Blood pressure diastolic 68 mmHg 2013-09-27 MEDICATIONS Unknown Medications RESULTS No Results PROCEDURES Procedure Date Ordered Result Body Site PSYCH DIAGNOSTIC EVALUATION Sep 27, 2013 THER/PROPH/DIAG INJ, SC/IM Sep 27, 2013 Rho d immune globulin inj Sep 27, 2013 URINE-NO MICRO Sep 27, 2013 INSTRUCTIONS MEDICATIONS ADMINISTERED No Known Medications MEDICAL (GENERAL) HISTORY Type Description Date Surgical History tonsils a nd adenoids remove Surgical History double masectomy Hospitalization History surgery Hospitalization History childbirth
--- OUTSIDE RECORDS SUMMARY | 2019-11-10 14:34 | XMS REPORT ---
Author Michael Oden [facility] Address [address] [place] [address] Care Team Providers Care Manufacturing Planner Name Role Phone AKASH HERNANDEZ Unavailable PROBLEMS Type Condition ICD9-CM Code [id number] Code Onset Dates Condition S tatus SNOMED Code Problem Owxywi-hc-plez transgender person F64.0 Active [id number] Problem Recurrent major depressive disorder, in full remission F33.42 Active [id number] ALLERGIES No Information ENCOUNTERS Encounter Location Date Diagnosis [address] [address] Sep, [address] [address] Aug, Third trimester Z34.93 and Enc ounter for immunization Z23 [address] [address] Aug, [address] [address] Aug, Second trimester Z34.[address] [address] Jul, Recurrent major depressive disorder, in full remission F33.42 [place] [address] [address] 16 Jul, 2019 Second trimester Z34.92 and 24 weeks gestation of Z3A.[address] [address] 18 Jun, 2019 Second trimester Z34.92 ; Enco unter for immunization Z23 and Second trimester Z33.[address] [address] Jun, Second trimester fetus Z34.92 [place] [address] [address] May, [place] [address] [address] May, Second trimester Z34.92 ; Seco nd trimester Z33.1 ; Encounter for immunization Z23 ; Recurrent major depressive disorder, in full remission F33.42 and 16 weeks gestation of Z3A.16 [place] [address] [address] 14 May, 2019 Second trimester Z33.1 [place] [address] [address] 23 Apr, 2019 First trimester Z34.91 and 12 weeks gestation of Z3A.12 [place] [address] [address] Apr, [place] [address] [address] Apr, [place] [address] [address] Apr, First trimester Z34.91 [place] [address] [address] Mar, [place] [address] [address] Mar, Positive test Z32.01 ; First t rimester Z34.91 ; Nausea and vomiting during O21.9 and 8 weeks gestation of Z3A.08 [place] [address] [address] Mar, [place] [address] [address] Mar, [place] [address] [address] December, Encounter for IUD removal Z30.432 [place] [address] [address] Nov, [facility] [address] [address] Oct, Pelvic pain R10.2 [facility] [address] [address] Oct, Pelvic pain R10.2 [facility] [address] [address] Oct, Oznihf-xc-wifo transgender person F64.0 [facility] [address] [address] Oct, Zcxjbt-uv-dqxf transgender person F64.0 ; Pelvic pain R10.2 and IUD surveillance Z30.431 [facility] [address] [address] Sep, [facility] [address] [address] Aug, [facility] [address] [address] Feb, Surveillance of previously prescribed in trauterine contraceptive device V25.42 [facility] [address] [address] Nov, [facility] [address] [address] Nov, [facility] [address] [address] Mar, [facility] [address] [address] Mar, [facility] [address] [address] Feb, [facility] [address] [address] Feb, [facility] [address] [address] Jan, [facility] [address] [facility] [id number] [place] [address] Jan, [facility] [address] [facility] [id number] [facility] [place] [address] Jan, [facility] [address] [id number] [place] [address] Jan, [facility] [address] [id number] [facility] [place] [address] Jan, [facility] [address] [facility] [id number] [place] [address] Jan, [facility] [address] [id number] [place] [address] Nov, [facility] [address] [id number] [place] [address] 30 Nov, 2013 [facility] [address] [id number] [place] [address] Nov, [facility] [address] [facility] [id number] [place] [address] Nov, [facility] [address] [id number] [place] [address] Nov, [facility] [address] [id number] [place] [address] Nov, [facility] [address] [id number] [place] [address] 15 Nov, 2013 [facility] [address] [facility] [id number] [place] [address] 15 Nov, 2013 [facility] [address] [id number] [place] [address] 15 Nov, 2013 [facility] [address] [id number] [place] [address] 15 Nov, 2013 [facility] [address] [id number] [place] [address] 2013 [facility] [address] [id number] [facility] [place] [address] Nov, [facility] [address] [id number] [facility] [place] [address] Nov, [facility] [address] [facility] [id number] [place] [address] Nov, [facility] [address] [id number] [facility] [place] [address] Nov, [facility] [address] [id number] [place] [address] Nov, [facility] [address] [facility] [id number] [facility] [place] [address] Nov, [facility] [address] [id number] [place] [address] Nov, [facility] [address] [id number] [place] [address] Oct, [facility] [address] [id number] [place] [address] Oct, [facility] [address] [id number] [place] [address] Oct, [facility] [address] [id number] [place] [address] Oct, [facility] [address] [id number] [place] [address] Oct, [facility] [address] [id number] [place] [address] Oct, [facility] [address] [facility] [id number] [place] [address] Oct, [facility] [address] [id number] [place] [address] Oct, [facility] [address] [id number] [place] [address] Oct, [facility] [address] [id number] [place] [address] Oct, [facility] [address] [id number] [place] [address] Sep, [facility] [address] [id number] [place] [address] Sep, [facility] [address] [id number] [place] [address] Sep, [facility] [address] [id number] [place] [address] Sep, [facility] [address] [id number] [place] [address] Sep, [facility] [address] [id number] [place] [address] Sep, [facility] [address] [id number] [place] [address] 16 Aug, 2013 [facility] [address] [id number] [place] [address] Aug, [facility] [address] [id number] [place] [address] 15 Aug, 2013 [facility] [address] [id number] [place] [address] Aug, [facility] [address] [id number] [place] [address] Aug, [facility] [address] [id number] [place] [address] Aug, [facility] [address] [id number] [place] [address] 14 Aug, 2013 [facility] [address] [id number] [place] [address] Aug, [facility] [address] [id number] [place] [address] Aug, [facility] [address] [id number] [place] [address] 17 Jul, 2013 [facility] [address] [id number] [place] [address] Jul, [facility] [address] [id number] [place] [address] Jul, [facility] [address] [id number] [place] [address] Jul, [facility] [address] [id number] [place] [address] Jun, [facility] [address] [place] [id number] [place] [address] Jun, [facility] [address] [id number] [place] [address] May, [facility] [address] [id number] [place] [address] May, [facility] [address] [id number] [place] [address] May, [facility] [address] [id number] [place] [address] May, [facility] [address] [id number] [place] [address] Apr, [facility] [address] [id number] [place] [address] Apr, [facility] [address] [id number] [place] [address] Apr, IMMUNIZATIONS No Known Immunizations SOCIAL HISTORY Never Assessed REASON FOR VISIT PLAN OF CARE VITAL SIGNS Height 64 in 2013-11-29 Weight 158.5 lbs 2013-11-29 Temperature 98.9 degrees Fahrenheit 2013-11-29 Heart Rate 84 bpm 2013-11-29 Respiratory Rate 18 2013-11-29 Blood pressure systolic 108 mmHg 2013-11-29 Blood pressure diastolic 74 mmHg 2013-11-29 MEDICATIONS Unknown Medications RESULTS No Results PROCEDURES Procedure Date Ordered Result Body Site URINE-NO MICRO November 29, 2013 INSTRUCTIONS MEDICATIONS ADMINISTERED No Known Medications MEDICAL (GENERAL) HISTORY Type Description Date Surgical History tonsils a nd adenoids remove Surgical History double masectomy Hospitalization History surgery Hospitalization History childbirth
--- OUTSIDE RECORDS SUMMARY | 2019-11-10 14:34 | XMS REPORT ---
Author Author Michael RICHARD Organization [facility] Address [address] [place] [address] Care Team Providers Care Entry Level Lab Technician Name Role Phone HILARYTEOFILOEAN Unavailable PROBLEMS Type Condition ICD9-CM Code WXQ87-AP Code Onset Dates Condition S tatus SNOMED Code Problem Mqsxmt-ng-fzjx transgender person F64.0 Active [id number] ALLERGIES No Information ENCOUNTERS Encounter Location Date Diagnosis [place] [address] [facility] [id number] [address] [place] [address] December, Encounter for IUD removal Z3 0.432 [place] [address] [facility] [id number] [address] [place] [address] Nov, [place] [address] [id number] [address] [place] [address] Oct, Pelvic pain R10.2 [place] [address] [facility] [id number] [address] [place] [address] Oct, Pelvic pain R10.2 [place] [address] [facility] [id number] [address] [place] [address] Oct, Djexnf-vv-hbof transgender p erson F64.0 [facility] [address] [facility] [id number] [address] [place] [address] Oct, Oqkjbj-gs-nmew transgender p erson F64.0 ; Pelvic pain R10.2 and IUD surveillance Z30.431 [place] [address] [facility] [id number] [address] [place] [address] Sep, [facility] [address] [facility] [id number] [address] [place] [address] Aug, [facility] [address] [id number] [address] [place] [address] Feb, Surveillance of previously p rescribed intrauterine contraceptive device V25.42 [facility] [address] [id number] [address] [place] [address] Nov, [facility] [address] [id number] [address] [place] [address] Nov, [facility] [address] [id number] [address] [place] [address] Mar, [facility] [address] [id number] [address] [place] [address], [place] [address] Mar, [facility] [address] [id number] [address] [place] [address] Feb, [facility] [address] [id number] [address] [place] [address] Feb, [facility] [address] [id number] [address] [place] [address] Jan, [facility] [address] [id number] [address] [place] [address] Jan, [facility] [address] [id number] [address] [place] [address] Jan, [facility] [address] [id number] [address] [place] [address] Jan, [facility] [address] [id number] [address] [place] [address] Jan, [facility] [address] [id number] [address] [place] [address] Jan, [facility] [address] [id number] [address] [place] [address] Nov, [facility] [address] [id number] [address] [place] [address] Nov, [facility] [address] [id number] [facility] [place] [address] Nov, [facility] [address] [id number] [address] [place] [address], [place] [address] Nov, [facility] [address] [id number] [address] [place] [address], [place] [address] Nov, [facility] [address] [id number] [address] [place] [address], [place] [address] Nov, [facility] [address] [id number] [address] [place] [address], [place] [address] Nov, [facility] [address] [id number] [address] [place] [address], [place] [address] Nov, [facility] [address] [id number] [address] [place] [address], [place] [address] Nov, [facility] [address] [id number] [address] [place] [address], [place] [address] Nov, [facility] [address] [id number] [address] [place] [address], [place] [address] Nov, [facility] [address] [id number] [address] [place] [address], [place] [address] Nov, [facility] [address] [id number] [address] [place] [address], [place] [address] Nov, [facility] [address] [id number] [address] [place] [address], [place] [address] Nov, [facility] [address] [id number] [address] [place] [address], [place] [address] Nov, [facility] [address] [id number] [address] [place] [address], [place] [address] Nov, [facility] [address] [id number] [address] [place] [address], [place] [address] Nov, [facility] [address] [id number] [address] [place] [address], [place] [address] Nov, [facility] [address] [id number] [facility] [place] [address] Oct, [facility] [address] [id number] [facility] [place] [address] Oct, [facility] [address] [id number] [facility] [place] [address] Oct, [facility] [address] [id number] [address] [place] [address], [place] [address] Oct, [facility] [address] [id number] [address] [place] [address], [place] [address] Oct, [facility] [address] [id number] [address] [place] [address], [place] [address] Oct, [facility] [address] [id number] [address] [place] [address], [place] [address] Oct, [facility] [address] [id number] [address] [place] [address], [place] [address] Oct, [facility] [address] [id number] [address] [place] [address], [place] [address] Oct, [facility] [address] [id number] [address] [place] [address], [place] [address] Oct, [facility] [address] [id number] [address] [place] [address], [place] [address] Sep, [facility] [address] [id number] [address] [place] [address], [place] [address] Sep, [facility] [address] [id number] [address] [place] [address], [place] [address] Sep, [facility] [address] [id number] [address] [place] [address], [place] [address] Sep, [facility] [address] [id number] [address] [place] [address], [place] [address] Sep, [facility] [address] [id number] [address] [place] [address], [place] [address] 11 Sep, 2013 [facility] [address] [id number] [address] [place] [address], [place] [address] 16 Aug, 2013 [facility] [address] [id number] [address] [place] [address], [place] [address] 16 Aug, 2013 [facility] [address] [id number] [address] [place] [address], [place] [address] 15 Aug, 2013 [facility] [address] [id number] [address] [place] [address], [place] [address] Aug, [facility] [address] [id number] [address] [place] [address], [place] [address] Aug, [facility] [address] [id number] [address] [place] [address], [place] [address] Aug, [facility] [address] [id number] [address] [place] [address], [place] [address] Aug, [facility] [address] [id number] [address] [place] [address], [place] [address] Aug, [facility] [address] [id number] [address] [place] [address], [place] [address] Aug, [facility] [address] [id number] [address] [place] [address], [place] [address] Jul, [facility] [address] [id number] [address] [place] [address], [place] [address] Jul, [facility] [address] [id number] [address] [place] [address], [place] [address] Jul, [facility] [address] [id number] [address] [place] [address], [place] [address] Jul, [facility] [address] [id number] [address] [place] [address], [place] [id number] Jun, [facility] [address] [id number] [address] [place] [address], [place] [address] Jun, [facility] [address] [id number] [address] [place] [phone] May, [facility] [address] [id number] [address] [place] [phone] May, [facility] [address] [id number] [address] [place] [phone] May, [facility] [address] [id number] [address] [place] [id number] May, [facility] [address] [id number] [address] [place] [id number] 19 Apr, 2013 [facility] [address] [id number] [address] [place] [phone] 18 Apr, 2013 [facility] [address] [id number] [address] [place] [phone] 17 Apr, 2013 IMMUNIZATIONS No Known Immunizations SOCIAL HISTORY Never Assessed REASON FOR VISIT PLAN OF CARE VITAL SIGNS MEDICATIONS No Known Medications RESULTS No Results PROCEDURES No Known procedures INSTRUCTIONS MEDICATIONS ADMINISTERED No Known Medications MEDICAL (GENERAL) HISTORY Type Description Date Surgical History tonsils a nd adenoids remove Surgical History double masectomy
--- OUTSIDE RECORDS SUMMARY | 2019-11-10 14:34 | XMS REPORT ---
Author Author Michael Hope Organization [facility] Address [address] [place] [address] Care Team Providers Care School Attendance Secretary Name Role Phone JULIO Hope Unavailable PROBLEMS Type Condition ICD9-CM Code VML42-[id number] Code Onset Dates Condition S tatus SNOMED Code Problem Xxecwk-fl-ncou transgender person F64.0 Active 609079408 Problem Recurrent major depressive disorder, in full remission F33.42 Active [id number] ALLERGIES No Information ENCOUNTERS Encounter Location Date Diagnosis [address] [address] Aug, Second trimester Z34.[address] [address] Jul, Recurrent major depressive disorder, in full remission F33.[address] [address] Jul, Second trimester Z34.92 and 24 weeks gestation of Z3A.[address] [address] Jun, Second trimester Z34.92 ; Enco unter for immunization Z23 and Second trimester Z33.1 [place] [address] [address] Jun, Second trimester fetus Z34.[address] [address] May, [address] [address] May, Second trimester Z34.92 ; Seco nd trimester Z33.1 ; Encounter for immunization Z23 ; Recurrent major depressive disorder, in full remission F33.42 and 16 weeks gestation of Z3A.16 [facility] [address] [address] May, Second trimester Z33.1 [facility] [address] [address] Apr, First trimester Z34.91 and 12 weeks gestation of Z3A.12 [place] [address] [address] Apr, [place] [address] [address] Apr, [place] [address] [address] Apr, First trimester Z34.91 [place] [address] [address] Mar, [place] [address] [address] Mar, Positive test Z32.01 ; First t rimester Z34.91 ; Nausea and vomiting during O21.9 and 8 weeks gestation of Z3A.08 [place] [address] [address] Mar, [place] [address] [address] Mar, [place] [address] [address] December, Encounter for IUD removal Z30.432 [place] [address] [address] Nov, [place] [address] [address] Oct, Pelvic pain R10.2 [place] [address] [address] Oct, Pelvic pain R10.2 [place] [address] [place] [id number] [place] [address] Oct, Zdoluu-of-ergi transgender person F64.0 [facility] [address] [address] Oct, Blozcy-wv-cjih transgender person F64.0 ; Pelvic pain R10.2 and IUD surveillance Z30.431 [facility] [address] [address] Sep, [facility] [address] [address] Aug, [facility] [address] [address] Feb, Surveillance of previously prescribed in trauterine contraceptive device V25.42 [facility] [address] [address] Nov, [facility] [address] [address] Nov, [facility] [address] [address] Mar, [facility] [address] [address] Mar, [facility] [address] [address] Feb, [facility] [address] [address] Feb, [facility] [address] [address] Jan, [facility] [address] [address] Jan, [facility] [address] [address] Jan, [facility] [address] [address] Jan, [facility] [address] [id number] [facility] [place] [address] Jan, [facility] [address] [facility] [id number] [place] [address] Jan, [facility] [address] [facility] [id number] [place] [address] 30 Nov, 2013 [facility] [address] [id number] [place] [address] 30 Nov, 2013 [facility] [address] [id number] [place] [address] Nov, [facility] [address] [id number] [place] [address] Nov, [facility] [address] [id number] [place] [address] Nov, [facility] [address] [id number] [place] [address] Nov, [facility] [address] [id number] [place] [address] 15 Nov, 2013 [facility] [address] [id number] [place] [address] 15 Nov, 2013 [facility] [address] [id number] [place] [address] Nov, [facility] [address] [id number] [place] [address] 15 Nov, 2013 [facility] [address] [id number] [place] [address] 2013 [facility] [address] [id number] [place] [address] 2013 [facility] [address] [id number] [place] [address] Nov, [facility] [address] [id number] [place] [address] Nov, [facility] [address] [id number] [place] [address] Nov, [facility] [address] [facility] [id number] [facility] [place] [address] Nov, [facility] [address] [facility] [id number] [facility] [place] [address] Nov, [facility] [address] [facility] [id number] [place] [address] Nov, [facility] [address] [id number] [place] [address] Oct, [facility] [address] [facility] [id number] [facility] [place] [address] Oct, [facility] [address] [id number] [place] [address] Oct, [facility] [address] [id number] [place] [address] Oct, [facility] [address] [id number] [place] [address] Oct, [facility] [address] [id number] [place] [address] Oct, [facility] [address] [id number] [place] [address] Oct, [facility] [address] [id number] [place] [address] Oct, [facility] [address] [id number] [place] [address] Oct, [facility] [address] [id number] [place] [address] Oct, [facility] [address] [id number] [place] [address] Sep, [facility] [address] [id number] [place] [address] Sep, [facility] [address] [id number] [place] [address] Sep, [facility] [address] [id number] [place] [address] 11 Sep, 2013 [facility] [address] [id number] [place] [address] Sep, [facility] [address] [id number] [place] [address] 11 Sep, 2013 [facility] [address] [id number] [place] [address] 16 Aug, 2013 [facility] [address] [id number] [place] [address] 16 Aug, 2013 [facility] [address] [id number] [place] [address] 15 Aug, 2013 [facility] [address] [id number] [place] [address] Aug, [facility] [address] [id number] [place] [address] Aug, [facility] [address] [id number] [place] [address] Aug, [facility] [address] [id number] [place] [address] Aug, [facility] [address] [id number] [place] [address] Aug, [facility] [address] [id number] [place] [address] Aug, [facility] [address] [id number] [place] [address] Jul, [facility] [address] [id number] [place] [address] Jul, [facility] [address] [place] [id number] [place] [address] 05 Jul, 2013 [facility] [address] [id number] [place] [address] Jul, [facility] [address] [id number] [place] [address] Jun, [facility] [address] [id number] [place] [address] Jun, [facility] [address] [place] [id number] [place] [address] May, [facility] [address] [id number] [place] [address] May, [facility] [address] [place] [id number] [place] [address] May, [facility] [address] [place] [id number] [place] [address] May, [facility] [address] [place] [id number] [place] [address] Apr, [facility] [address] [place] [id number] [place] [address] Apr, [facility] [address] [id number] [place] [address] Apr, IMMUNIZATIONS No Known Immunizations SOCIAL HISTORY Never Assessed REASON FOR VISIT PLAN OF CARE VITAL SIGNS Height 64 in 2014-01-18 Weight 133.1 lbs 2014-01-18 Temperature 98 degrees Fahrenheit 2014-01-18 Heart Rate 80 bpm 2014-01-18 Respiratory Rate 16 2014-01-18 Blood pressure systolic 108 mmHg 2014-01-18 Blood pressure diastolic 70 mmHg 2014-01-18 MEDICATIONS Unknown Medications RESULTS No Results PROCEDURES No Known procedures INSTRUCTIONS MEDICATIONS ADMINISTERED No Known Medications MEDICAL (GENERAL) HISTORY Type Description Date Surgical History tonsils a nd adenoids remove Surgical History double masectomy Hospitalization History surgery Hospitalization History childbirth
--- OUTSIDE RECORDS SUMMARY | 2019-11-10 14:34 | XMS REPORT ---
Author Author Michael RICHARD Organization [facility] Address [address] [place] [address] Care Team Providers Care Oil Change Technician Name Role Phone HILARY EAN Unavailable PROBLEMS Type Condition ICD9-CM Code [id number] Code Onset Dates Condition S tatus SNOMED Code Problem Zcmujw-wc-ftug transgender person F64.0 Active [id number] Problem Recurrent major depressive disorder, in full remission F33.42 Active [id number] ALLERGIES No Information ENCOUNTERS Encounter Location Date Diagnosis [address] [address] Sep, [address] [address] Aug, Third trimester Z34.93 and Enc ounter for immunization Z23 [address] [address] Aug, [address] [address] Aug, Second trimester Z34.[address] [address] Jul, Recurrent major depressive disorder, in full remission F33.[address] [address] 16 Jul, 2019 Second trimester Z34.92 and 24 weeks gestation of Z3A.[address] [address] Jun, Second trimester Z34.92 ; Enco unter for immunization Z23 and Second trimester Z33.[address] [address] Jun, Second trimester fetus Z34.92 [facility] [address] [address] May, [place] [address] [address] May, Second trimester Z34.92 ; Seco nd trimester Z33.1 ; Encounter for immunization Z23 ; Recurrent major depressive disorder, in full remission F33.42 and 16 weeks gestation of Z3A.16 [place] [address] [address] 14 May, 2019 Second trimester Z33.1 [place] [address] [address] 23 Apr, 2019 First trimester Z34.91 and 12 weeks gestation of Z3A.12 [place] [address] [address] Apr, [place] [address] [address] Apr, [place] [address] [address] Apr, First trimester Z34.91 [place] [address] [address] Mar, [place] [address] [address] Mar, Positive test Z32.01 ; First t rimester Z34.91 ; Nausea and vomiting during O21.9 and 8 weeks gestation of Z3A.08 [place] [address] [address] Mar, [place] [address] [address] Mar, [place] [address] [address] December, Encounter for IUD removal Z30.432 [place] [address] [address] Nov, [facility] [address] [address] Oct, Pelvic pain R10.2 [facility] [address] [address] Oct, Pelvic pain R10.2 [facility] [address] [address] Oct, Ywvolb-sx-tkbw transgender person F64.0 [facility] [address] [address] Oct, Cesrls-hg-sopy transgender person F64.0 ; Pelvic pain R10.2 and IUD surveillance Z30.431 [facility] [address] [address] Sep, [facility] [address] [address] Aug, [facility] [address] [address] Feb, Surveillance of previously prescribed in trauterine contraceptive device V25.42 [facility] [address] [address] Nov, [facility] [address] [address] Nov, [facility] [address] [address] Mar, [facility] [address] [address] Mar, [facility] [address] [address] Feb, [facility] [address] [address] Feb, [facility] [address] [address] Jan, [facility] [address] [id number] [facility] [address] Jan, [facility] [address] [facility] 2[facility] [id number] [place] [address] Jan, [facility] [address] [facility] 2[facility] [id number] [place] [address] Jan, [facility] [address] [id number] [place] [address] Jan, [facility] [address] [id number] [place] [address] Jan, [facility] [address] [id number] [place] [address] Nov, [facility] [address] [id number] [place] [address] Nov, [facility] [address] [id number] [place] [address] Nov, [facility] [address] [facility] 2] [id number] [place] [address] Nov, [facility] [address] [id number] [place] [address] Nov, [facility] [address] [id number] [place] [address] Nov, [facility] [address] [id number] [place] [address] 15 Nov, 2013 [facility] [address] [facility] 2] [id number] [place] [address] 15 Nov, 2013 [facility] [address] [id number] [place] [address] 15 Nov, 2013 [facility] [address] [id number] [place] [address] 15 Nov, 2013 [facility] [address] [id number] [place] [address] 2013 [facility] [address] [id number] [place] [address] Nov, [facility] [address] [facility] 2] [id number] [place] [address] Nov, [facility] [address] [facility] 2] [id number] [place] [address] Nov, [facility] [address] [id number] [place] [address] Nov, [facility] [address] [id number] [place] [address] Nov, [facility] [address] [facility] 2] [id number] [place] [address] Nov, [facility] [address] [id number] [place] [address] Nov, [facility] [address] [id number] [place] [address] Oct, [facility] [address] [id number] [place] [address] Oct, [facility] [address] [id number] [place] [address] Oct, [facility] [address] [id number] [place] [address] Oct, [facility] [address] [id number] [place] [address] Oct, [facility] [address] [id number] [place] [address] Oct, [facility] [address] [id number] [place] [address] Oct, [facility] [address] [id number] [place] [address] Oct, [facility] [address] [id number] [place] [address] Oct, [facility] [address] [id number] [place] [address] Oct, [facility] [address] [facility] 2] [id number] [place] [address] Sep, [facility] [address] [facility]NOTE 2] [id number] [place] [address] Sep, [facility] [address] [facility]NOTE 2] [id number] [place] [address] Sep, [facility] [address] [id number] [place] [address] Sep, [facility] [address] [facility] 2] [id number] [place] [address] Sep, [facility] [address] [id number] [place] [address] Sep, [facility] [address] [id number] [place] [address] 16 Aug, 2013 [facility] [address] [id number] [place] [address] Aug, [facility] [address] [id number] [place] [address] 15 Aug, 2013 [facility] [address] [id number] [place] [address] Aug, [facility] [address] [id number] [place] [address] 14 Aug, 2013 [facility] [address] [id number] [place] [address] Aug, [facility] [address] [id number] [place] [address] 14 Aug, 2013 [facility] [address] [id number] [place] [address] Aug, [facility] [address] [id number] [place] [address] Aug, [facility] [address] [id number] [place] [address] 17 Jul, 2013 [facility] [address] [id number] [place] [address] Jul, [facility] [address] [id number] [place] [address] Jul, [facility] [address] [id number] [place] [address] Jul, [facility] [address] [id number] [place] [address] Jun, [facility] [address] [place] [id number] [place] [address] Jun, [facility] [address] [id number] [place] [address] May, [facility] [address] [id number] [place] [address] May, [facility] [address] [place] [id number] [place] [address] May, [facility] [address] [place] [id number] [place] [address] May, [facility] [address] [id number] [place] [address] Apr, [facility] [address] [id number] [place] [address] Apr, [facility] [address] [id number] [place] [address] Apr, IMMUNIZATIONS No Known Immunizations SOCIAL HISTORY Never Assessed REASON FOR VISIT PLAN OF CARE VITAL SIGNS MEDICATIONS Unknown Medications RESULTS No Results PROCEDURES No Known procedures INSTRUCTIONS MEDICATIONS ADMINISTERED No Known Medications MEDICAL (GENERAL) HISTORY Type Description Date Surgical History tonsils a nd adenoids remove Surgical History double masectomy Hospitalization History surgery Hospitalization History childbirth
--- OUTSIDE RECORDS SUMMARY | 2019-11-10 14:34 | XMS REPORT ---
Author Author Michael RICHARD Organization [facility] Address [address] [place] [address] Care Team Providers Care Restaurant Kitchen And Service Manager Name Role Phone EAN RICHARD Unavailable PROBLEMS Type Condition ICD9-CM Code ILO64-UK Code Onset Dates Condition S tatus SNOMED Code Problem Yjtcse-gd-veta transgender person F64.0 Active 695434749 Problem Recurrent major depressive disorder, in full remission F33.42 Active 87553921 ALLERGIES No Information ENCOUNTERS Encounter Location Date Diagnosis [address] [address] Sep, Third trimester Z34.[address] [address] Aug, Third trimester Z34.93 and Enc ounter for immunization Z23 [address] [address] Aug, [place] [address] [address] Aug, Second trimester Z34.[address] [address] Jul, Recurrent major depressive disorder, in full remission F33.42 [place] [address] [address] 16 Jul, 2019 Second trimester Z34.92 and 24 weeks gestation of Z3A.[address] [address] 18 Jun, 2019 Second trimester Z34.92 ; Enco unter for immunization Z23 and Second trimester Z33.[address] [address] Jun, Second trimester fetus Z34.92 [facility] [address] [address] May, [facility] [address] [address] May, Second trimester Z34.92 ; Seco nd trimester Z33.1 ; Encounter for immunization Z23 ; Recurrent major depressive disorder, in full remission F33.42 and 16 weeks gestation of Z3A.16 [place] [address] [address] 14 May, 2019 Second trimester Z33.1 [place] [address] [address] 23 Apr, 2019 First trimester Z34.91 and 12 weeks gestation of Z3A.12 [place] [address] [address] Apr, [place] [address] [address] Apr, [place] [address] [address] Apr, First trimester Z34.91 [place] [address] [address] Mar, [place] [address] [address] Mar, Positive test Z32.01 ; First t rimester Z34.91 ; Nausea and vomiting during O21.9 and 8 weeks gestation of Z3A.08 [place] [address] [address] Mar, [place] [address] [address] Mar, [facility] [address] [address] December, Encounter for IUD removal Z30.432 [facility] [address] [address] Nov, [facility] [address] [address] Oct, Pelvic pain R10.2 [facility] [address] [address] Oct, Pelvic pain R10.2 [facility] [address] [address] Oct, Dohdao-sf-nqqv transgender person F64.0 [facility] [address] [address] Oct, Msgqsv-lx-elnh transgender person F64.0 ; Pelvic pain R10.2 and IUD surveillance Z30.431 [facility] [address] [address] Sep, [facility] [address] [address] Aug, [facility] [address] [address] Feb, Surveillance of previously prescribed in trauterine contraceptive device V25.42 [facility] [address] [address] Nov, [facility] [address] [address] Nov, [facility] [address] [address] Mar, [facility] [address] [address] Mar, [facility] [address] [address] Feb, [facility] [address] [address] Feb, [facility] [address] [place] [address] Jan, [facility] [place] [facility] [address] [id number] [facility] [place] [address] Jan, [facility] [place] [facility] [address] [facility] [id number] [place] [address] Jan, [facility] [place] [facility] [address] [id number] [place] [address] Jan, [facility] [place] [facility] [address] [id number] [place] [address] Jan, [facility] [place] [facility] [address] [facility] [id number] [facility] [place] [address] Jan, [facility] [place] [facility] [address] [id number] [place] [address] Nov, [facility] [place] [facility] [address] [id number] [place] [address] Nov, [facility] [place] [facility] [address] [id number] [place] [address] Nov, [facility] [place] [facility] [address] [id number] [place] [address] Nov, [facility] [place] [facility] [address] [id number] [place] [address] Nov, [facility] [place] [facility] [address] [id number] [place] [address] Nov, [facility] [place] [facility] [address] [id number] [place] [address] 15 Nov, 2013 [facility] [place] [facility] [address] [facility] [id number] [place] [address] 15 Nov, 2013 [facility] [place] [facility] [address] [id number] [place] [address] 15 Nov, 2013 [facility] [place] [facility] [address] [id number] [place] [address] 15 Nov, 2013 [facility] [place] [facility] [address] [id number] [place] [address] 2013 [facility] [place] [facility] [address] [facility] [id number] [place] [address] Nov, [facility] [place] [facility] [address] [facility] [id number] [place] [address] Nov, [facility] [place] [facility] [address] [id number] [place] [address] Nov, [facility] [place] [facility] [address] [id number] [place] [address] Nov, [facility] [place] [facility] [address] [facility] [id number] [place] [address] Nov, [facility] [place] [facility] [address] [id number] [place] [address] Nov, [facility] [place] [facility] [address] [id number] [place] [address] Nov, [facility] [place] [facility] [address] [id number] [place] [address] Oct, [facility] [place] [facility] [address] [id number] [place] [address] Oct, [facility] [place] [facility] [address] [id number] [place] [address] Oct, [facility] [place] [facility] [address] [id number] [place] [address] Oct, [facility] [place] [facility] [address] [id number] [place] [address] Oct, [facility] [place] [facility] [address] [id number] [place] [address] Oct, [facility] [place] [facility] [address] [id number] [place] [address] Oct, [facility] [place] [facility] [address] [id number] [place] [address] Oct, [facility] [place] [facility] [address] [id number] [place] [address] Oct, [facility] [place] [facility] [address] [id number] [place] [address] Oct, [facility] [place] [facility] [address] [facility] [id number] [facility] [place] [address] Sep, [facility] [place] [facility] [address] [facility] [id number] [facility] [place] [address] Sep, [facility] [place] [facility] [address] [facility] [id number] [facility] [place] [address] Sep, [facility] [place] [facility] [address] [facility] [id number] [facility] [place] [address] Sep, [facility] [place] [facility] [address] [facility] [id number] [facility] [place] [address] Sep, [facility] [place] [facility] [address] [id number] [place] [address] Sep, [facility] [place] [facility] [address] [id number] [place] [address] Aug, [facility] [place] [facility] [address] [id number] [place] [address] Aug, [facility] [place] [facility] [address] [id number] [place] [address] Aug, [facility] [place] [facility] [address] [id number] [place] [address] Aug, [facility] [place] [facility] [address] [id number] [place] [address] Aug, [facility] [place] [facility] [address] [id number] [place] [address] Aug, [facility] [place] [facility] [address] [id number] [place] [address] Aug, [facility] [place] [facility] [address] [id number] [place] [address] Aug, [facility] [place] [facility] [address] [id number] [place] [address] Aug, [facility] [place] [facility] [address] [id number] [place] [address] Jul, [facility] [place] [facility] [address] [id number] [place] [address] Jul, [facility] [address] [id number] [place] [address] Jul, [facility] [address] [id number] [place] [address] Jul, [facility] [address] [id number] [place] [address] Jun, [facility] [address] [place] [id number] [place] [address] Jun, [facility] [address] [id number] [place] [address] May, [facility] [address] [id number] [place] [address] May, [facility] [address] [id number] [place] [address] May, [facility] [address] [id number] [place] [address] May, [facility] [address] [id number] [place] [address] Apr, [facility] [address] [id number] [place] [address] Apr, [facility] [address] [id number] [place] [address] Apr, IMMUNIZATIONS No Known Immunizations SOCIAL HISTORY Never Assessed REASON FOR VISIT PLAN OF CARE VITAL SIGNS MEDICATIONS Unknown Medications RESULTS No Results PROCEDURES No Known procedures INSTRUCTIONS MEDICATIONS ADMINISTERED No Known Medications MEDICAL (GENERAL) HISTORY Type Description Date Surgical History tonsils a nd adenoids remove Surgical History double masectomy Hospitalization History surgery Hospitalization History childbirth
--- OUTSIDE RECORDS SUMMARY | 2019-11-10 14:34 | XMS REPORT ---
Author Author Michael Hope Organization [facility] Address [address] [place] [address] Care Team Providers Care Circuits Engineer Name Role Phone JULIO Hope Unavailable PROBLEMS Type Condition ICD9-CM Code [id number] Code Onset Dates Condition S tatus SNOMED Code Problem Mxuypp-qm-jocm transgender person F64.0 Active [id number] Problem Recurrent major depressive disorder, in full remission F33.42 Active [id number] ALLERGIES No Information ENCOUNTERS Encounter Location Date Diagnosis [place] [address] [address] Aug, Third trimester Z34.[address] [address] 14 Aug, [address] [address] Aug, Second trimester Z34.[address] [address] Jul, Recurrent major depressive disorder, in full remission F33.[address] [address] Jul, Second trimester Z34.92 and 24 weeks gestation of Z3A.[address] [address] 18 Jun, 2019 Second trimester Z34.92 ; Enco unter for immunization Z23 and Second trimester Z33.1 [place] [address] [address] Jun, Second trimester fetus Z34.[address] [address] May, [facility] [address] [place] [id number] [place] [address] May, Second trimester Z34.92 ; Seco nd trimester Z33.1 ; Encounter for immunization Z23 ; Recurrent major depressive disorder, in full remission F33.42 and 16 weeks gestation of Z3A.16 [place] [address] [address] 14 May, 2019 Second trimester Z33.1 [facility] [address] [address] Apr, First trimester Z34.91 and 12 weeks gestation of Z3A.12 [place] [address] [address] Apr, [place] [address] [address] Apr, [place] [address] [address] Apr, First trimester Z34.91 [place] [address] [address] Mar, [place] [address] [address] Mar, Positive test Z32.01 ; First t rimester Z34.91 ; Nausea and vomiting during O21.9 and 8 weeks gestation of Z3A.08 [place] [address] [place] [id number] [place] [address] Mar, [place] [address] [address] Mar, [place] [address] [address] December, Encounter for IUD removal Z30.432 [place] [address] [address] Nov, [place] [address] [address] Oct, Pelvic pain R10.2 [facility] [address] [address] Oct, Pelvic pain R10.2 [facility] [address] [address] Oct, Cvnyyv-nj-wnfe transgender person F64.0 [facility] [address] [address] Oct, Rxyaou-qn-ovzm transgender person F64.0 ; Pelvic pain R10.2 and IUD surveillance Z30.431 [facility] [address] [address] Sep, [facility] [address] [address] Aug, [facility] [address] [address] Feb, Surveillance of previously prescribed in trauterine contraceptive device V25.42 [facility] [address] [address] Nov, [facility] [address] [address] Nov, [facility] [address] [address] Mar, [facility] [address] [address] Mar, [facility] [address] [address] Feb, [facility] [address] [address] Feb, [facility] [address] [address] Jan, [facility] [address] [address] Jan, [facility] [place] [facility] [address] [id number] [place] [address] Jan, [facility] [place] [facility] [address] [id number] [place] [address] Jan, [facility] [place] [facility] [address] [id number] [place] [address] Jan, [facility] [place] [facility] [address] [id number] [place] [address] Jan, [facility] [place] [facility] [address] [facility] [id number] [place] [address] Nov, [facility] [place] [facility] [address] [id number] [place] [address] 30 Nov, 2013 [facility] [place] [facility] [address] [id number] [place] [address] Nov, [facility] [place] [facility] [address] [id number] [place] [address] Nov, [facility] [place] [facility] [address] [id number] [place] [address] Nov, [facility] [place] [facility] [address] [id number] [place] [address] Nov, [facility] [place] [facility] [address] [id number] [place] [address] 15 Nov, 2013 [facility] [place] [facility] [address] [id number] [place] [address] 15 Nov, 2013 [facility] [place] [facility] [address] [id number] [place] [address] 15 Nov, 2013 [facility] [place] [facility] [address] [id number] [place] [address] 15 Nov, 2013 [facility] [place] [facility] [address] [id number] [place] [address] 2013 [facility] [place] [facility] [address] [id number] [place] [address] 2013 [facility] [place] [facility] [address] [id number] [place] [address] Nov, [facility] [place] [facility] [address] [facility] [id number] [place] [address] Nov, [facility] [place] [facility] [address] [facility] [id number] [place] [address] Nov, [facility] [place] [facility] [address] [id number] [place] [address] Nov, [facility] [place] [facility] [address] [id number] [place] [address] Nov, [facility] [place] [facility] [address] [facility] [id number] [place] [address] Nov, [facility] [place] [facility] [address] [id number] [place] [address] Oct, [facility] [place] [facility] [address] [id number] [place] [address] Oct, [facility] [place] [facility] [address] [id number] [place] [address] Oct, [facility] [place] [facility] [address] [id number] [place] [address] Oct, [facility] [place] [facility] [address] [id number] [place] [address] Oct, [facility] [place] [facility] [address] [id number] [place] [address] Oct, [facility] [place] [facility] [address] [id number] [place] [address] Oct, [facility] [place] [facility] [address] [id number] [place] [address] Oct, [facility] [place] [facility] [address] [id number] [place] [address] Oct, [facility] [place] [facility] [address] [id number] [place] [address] Oct, [facility] [place] [facility] [address] [id number] [place] [address] Sep, [facility] [place] [facility] [address] [id number] [place] [address] 11 Sep, 2013 [facility] [place] [facility] [address] [id number] [place] [address] Sep, [facility] [place] [facility] [address] [id number] [place] [address] Sep, [facility] [place] [facility] [address] [id number] [place] [address] Sep, [facility] [place] [facility] [address] [id number] [place] [address] Sep, [facility] [place] [facility] [address] [id number] [place] [address] Aug, [facility] [place] [facility] [address] [id number] [place] [address] Aug, [facility] [place] [facility] [address] [id number] [place] [address] 15 Aug, 2013 [facility] [place] [facility] [address] [id number] [place] [address] Aug, [facility] [place] [facility] [address] [id number] [place] [address] Aug, [facility] [place] [facility] [address] [id number] [place] [address] Aug, [facility] [place] [facility] [address] [id number] [place] [address] Aug, [facility] [place] [facility] [address] [id number] [place] [address] Aug, [facility] [place] [facility] [address] [id number] [place] [address] Aug, [facility] [place] [facility] [address] [id number] [place] [address] Jul, [facility] [place] [facility] [address] [id number] [place] [address] Jul, [facility] [place] [facility] [address] [id number] [place] [address] Jul, [facility] [address] [id number] [place] [address] Jul, [facility] [address] [place] [id number] [place] [address] Jun, [facility] [address] [id number] [place] [address] Jun, [facility] [address] [place] [address] [id number] [place] [address] May, [facility] [address] [place] [address] [id number] [place] [address] May, [facility] [address] [place] [id number] [place] [address] May, [facility] [address] [id number] [place] [address] May, [facility] [address] [place] [id number] [place] [address] Apr, [facility] [address] [id number] [place] [address] Apr, [facility] [address] [place] [address] [id number] [place] [address] Apr, IMMUNIZATIONS No Known Immunizations SOCIAL HISTORY Never Assessed REASON FOR VISIT PLAN OF CARE VITAL SIGNS MEDICATIONS Unknown Medications RESULTS No Results PROCEDURES No Known procedures INSTRUCTIONS MEDICATIONS ADMINISTERED No Known Medications MEDICAL (GENERAL) HISTORY Type Description Date Surgical History tonsils a nd adenoids remove Surgical History double masectomy Hospitalization History surgery Hospitalization History childbirth
--- OUTSIDE RECORDS SUMMARY | 2019-11-10 14:34 | XMS REPORT ---
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 Active 486098450 Problem Recurrent major depressive disorder, in full remission F33.42 Active [id number] ALLERGIES No Information ENCOUNTERS Encounter Location Date Diagnosis [address] [address] Aug, Second trimester Z34.[address] [address] Jul, Recurrent major depressive disorder, in full remission F33.[address] [address] Jul, Second trimester Z34.92 and 24 weeks gestation of Z3A.[address] [address] Jun, Second trimester Z34.92 ; Enco unter for immunization Z23 and Second trimester Z33.1 [place] [address] [address] Jun, Second trimester fetus Z34.[address] [address] May, [address] [address] May, Second trimester Z34.92 ; Seco nd trimester Z33.1 ; Encounter for immunization Z23 ; Recurrent major depressive disorder, in full remission F33.42 and 16 weeks gestation of Z3A.16 [facility] [address] [address] May, Second trimester Z33.1 [facility] [address] [address] Apr, First trimester Z34.91 and 12 weeks gestation of Z3A.12 [place] [address] [address] Apr, [place] [address] [address] Apr, [place] [address] [address] Apr, First trimester Z34.91 [place] [address] [address] Mar, [place] [address] [address] Mar, Positive test Z32.01 ; First t rimester Z34.91 ; Nausea and vomiting during O21.9 and 8 weeks gestation of Z3A.08 [place] [address] [address] Mar, [place] [address] [address] Mar, [place] [address] [address] December, Encounter for IUD removal Z30.432 [place] [address] [address] Nov, [place] [address] [address] Oct, Pelvic pain R10.2 [place] [address] [address] Oct, Pelvic pain R10.2 [place] [address] [place] [id number] [place] [address] Oct, Lyxkjx-xe-zxry transgender person F64.0 [facility] [address] [address] Oct, Ytraxr-xo-sqce transgender person F64.0 ; Pelvic pain R10.2 and IUD surveillance Z30.431 [facility] [address] [address] Sep, [facility] [address] [address] Aug, [facility] [address] [address] Feb, Surveillance of previously prescribed in trauterine contraceptive device V25.42 [facility] [address] [address] Nov, [facility] [address] [address] Nov, [facility] [address] [address] Mar, [facility] [address] [address] Mar, [facility] [address] [address] Feb, [facility] [address] [address] Feb, [facility] [address] [address] Jan, [facility] [address] [address] Jan, [facility] [address] [address] Jan, [facility] [address] [address] Jan, [facility] [address] [id number] [facility] [place] [address] Jan, [facility] [address] [facility] [id number] [place] [address] Jan, [facility] [address] [facility] [id number] [place] [address] 30 Nov, 2013 [facility] [address] [id number] [place] [address] 30 Nov, 2013 [facility] [address] [id number] [place] [address] Nov, [facility] [address] [id number] [place] [address] Nov, [facility] [address] [id number] [place] [address] Nov, [facility] [address] [id number] [place] [address] Nov, [facility] [address] [id number] [place] [address] 15 Nov, 2013 [facility] [address] [id number] [place] [address] 15 Nov, 2013 [facility] [address] [id number] [place] [address] Nov, [facility] [address] [id number] [place] [address] 15 Nov, 2013 [facility] [address] [id number] [place] [address] 2013 [facility] [address] [id number] [place] [address] 2013 [facility] [address] [id number] [place] [address] Nov, [facility] [address] [id number] [place] [address] Nov, [facility] [address] [id number] [place] [address] Nov, [facility] [address] [facility] [id number] [facility] [place] [address] Nov, [facility] [address] [facility] [id number] [facility] [place] [address] Nov, [facility] [address] [facility] [id number] [place] [address] Nov, [facility] [address] [id number] [place] [address] Oct, [facility] [address] [facility] [id number] [facility] [place] [address] Oct, [facility] [address] [id number] [place] [address] Oct, [facility] [address] [id number] [place] [address] Oct, [facility] [address] [id number] [place] [address] Oct, [facility] [address] [id number] [place] [address] Oct, [facility] [address] [id number] [place] [address] Oct, [facility] [address] [id number] [place] [address] Oct, [facility] [address] [id number] [place] [address] Oct, [facility] [address] [id number] [place] [address] Oct, [facility] [address] [id number] [place] [address] Sep, [facility] [address] [id number] [place] [address] Sep, [facility] [address] [id number] [place] [address] Sep, [facility] [address] [id number] [place] [address] 11 Sep, 2013 [facility] [address] [id number] [place] [address] Sep, [facility] [address] [id number] [place] [address] 11 Sep, 2013 [facility] [address] [id number] [place] [address] 16 Aug, 2013 [facility] [address] [id number] [place] [address] 16 Aug, 2013 [facility] [address] [id number] [place] [address] 15 Aug, 2013 [facility] [address] [id number] [place] [address] Aug, [facility] [address] [id number] [place] [address] Aug, [facility] [address] [id number] [place] [address] Aug, [facility] [address] [id number] [place] [address] Aug, [facility] [address] [id number] [place] [address] Aug, [facility] [address] [id number] [place] [address] Aug, [facility] [address] [id number] [place] [address] Jul, [facility] [address] [id number] [place] [address] Jul, [facility] [address] [place] [id number] [place] [address] 05 Jul, 2013 [facility] [address] [id number] [place] [address] Jul, [facility] [address] [id number] [place] [address] Jun, [facility] [address] [id number] [place] [address] Jun, [facility] [address] [place] [id number] [place] [address] May, [facility] [address] [place] [id number] [place] [address] May, [facility] [address] [place] [id number] [place] [address] May, [facility] [address] [place] [id number] [place] [address] May, [facility] [address] [place] [id number] [place] [address] Apr, [facility] [address] [id number] [place] [address] Apr, [facility] [address] [place] [id number] [place] [address] Apr, IMMUNIZATIONS No Known Immunizations SOCIAL HISTORY Never Assessed REASON FOR VISIT PLAN OF CARE VITAL SIGNS MEDICATIONS Unknown Medications RESULTS No Results PROCEDURES No Known procedures INSTRUCTIONS MEDICATIONS ADMINISTERED No Known Medications MEDICAL (GENERAL) HISTORY Type Description Date Surgical History tonsils a nd adenoids remove Surgical History double masectomy Hospitalization History surgery Hospitalization History childbirth
--- OUTSIDE RECORDS SUMMARY | 2019-11-10 14:34 | XMS REPORT ---
Author Author Michael ARREOLA Organization [facility] Address [address] [place] [address] Care Team Providers Care Family Health Nurse Practitioner Name Role Phone TERENCE ARREOLA Unavailable PROBLEMS Type Condition ICD9-CM Code SEL23-ET Code Onset Dates Condition S tatus SNOMED Code Problem Uqwwsz-ds-sykm transgender person F64.0 Active [id number] ALLERGIES No Information ENCOUNTERS Encounter Location Date Diagnosis [id number] [place] [address] December, Encounter for IUD removal Z3 0.432 [place] [address] [place] [id number] [place] [address] Nov, [facility] [address] [facility] [id number] [address] [place] [address] Oct, Pelvic pain R10.2 [facility] [address] [facility] [id number] [address] [place] [address] Oct, Pelvic pain R10.2 [facility] [address] [place] [id number] [place] [address] Oct, Ybdpxh-wo-wqvy transgender p erson F64.0 [facility] [address] [facility] [id number] [address] [place] [address] Oct, Gwwuby-wo-uyqg transgender p erson F64.0 ; Pelvic pain R10.2 and IUD surveillance Z30.431 [facility] [address] [facility] [id number] [address] [place] [address] Sep, [facility] [address] [facility] [id number] [address] [place] [address] Aug, [facility] [address] [id number] [address] [place] [address] Feb, Surveillance of previously p rescribed intrauterine contraceptive device V25.42 [facility] [address] [id number] [address] [place] [address], [place] [address] Nov, [facility] [address] [id number] [address] [place] [address] Nov, [facility] [address] [id number] [address] [place] [address], [place] [address] Mar, [facility] [address] [id number] [address] [place] [address], [place] [address] Mar, [facility] [address] [id number] [address] [place] [address] Feb, [facility] [address] [id number] [address] [place] [address], [place] [address] Feb, [facility] [address] [id number] [address] [place] [address] Jan, [facility] [address] [id number] [address] [place] [address] Jan, [facility] [address] [id number] [address] [place] [address] Jan, [facility] [address] [id number] [address] [place] [address] Jan, [facility] [address] [id number] [address] [place] [address] Jan, [facility] [address] [id number] [address] [place] [address] Jan, [facility] [address] [id number] [address] [place] [address] Nov, [facility] [address] [id number] [address] [place] [address] Nov, [facility] [address] [id number] [address] [place] [address] [place] [address] Nov, [facility] [address] [id number] [address] [place] [address], [place] [address] Nov, [facility] [address] [id number] [address] [place] [address], [place] [address] Nov, [facility] [address] [id number] [address] [place] [address], [place] [address] Nov, [facility] [address] [id number] [address] [place] [address], [place] [address] Nov, [facility] [address] [id number] [address] [place] [address], [place] [address] Nov, [facility] [address] [id number] [address] [place] [address], [place] [address] Nov, [facility] [address] [id number] [address] [place] [address], [place] [address] Nov, [facility] [address] [id number] [address] [place] [address], [place] [address] Nov, [facility] [address] [id number] [address] [place] [address], [place] [address] Nov, [facility] [address] [id number] [address] [place] [address], [place] [address] Nov, [facility] [address] [id number] [address] [place] [address], [place] [address] Nov, [facility] [address] [id number] [address] [place] [address], [place] [address] Nov, [facility] [address] [id number] [address] [place] [address], [place] [address] Nov, [facility] [address] [id number] [address] [place] [address], [place] [address] Nov, [facility] [address] [id number] [address] [place] [address], [place] [address] Nov, [facility] [address] [id number] [facility] [place] [address] Oct, [facility] [address] [id number] [facility] [place] [address] Oct, [facility] [address] [id number] [facility] [place] [address] Oct, [facility] [address] [id number] [facility] [place] [address] Oct, [facility] [address] [id number] [facility] [place] [address] Oct, [facility] [address] [id number] [address] [place] [address], [place] [address] Oct, [facility] [address] [id number] [address] [place] [address], [place] [address] Oct, [facility] [address] [id number] [address] [place] [address], [place] [address] Oct, [facility] [address] [id number] [address] [place] [address], [place] [address] Oct, [facility] [address] [id number] [address] [place] [address], [place] [address] Oct, [facility] [address] [id number] [address] [place] [address], [place] [address] Sep, [facility] [address] [id number] [address] [place] [address], [place] [address] Sep, [facility] [address] [id number] [address] [place] [address], [place] [address] Sep, [facility] [address] [id number] [address] [place] [address], [place] [address] Sep, [facility] [address] [id number] [address] [place] [address], [place] [address] Sep, [facility] [address] [id number] [address] [place] [address], [place] [address] 11 Sep, 2013 [facility] [address] [id number] [address] [place] [address], [place] [address] 16 Aug, 2013 [facility] [address] [id number] [address] [place] [address], [place] [address] 16 Aug, 2013 [facility] [address] [id number] [address] [place] [address], [place] [address] 15 Aug, 2013 [facility] [address] [id number] [address] [place] [address], [place] [address] 14 Aug, 2013 [facility] [address] [id number] [address] [place] [address], [place] [address] Aug, [facility] [address] [id number] [address] [place] [address], [place] [address] Aug, [facility] [address] [id number] [address] [place] [address], [place] [address] Aug, [facility] [address] [id number] [address] [place] [address], [place] [address] Aug, [facility] [address] [id number] [address] [place] [address], [place] [address] Aug, [facility] [address] [id number] [address] [place] [address], [place] [address] Jul, [facility] [address] [id number] [address] [place] [address], [place] [address] Jul, [facility] [address] [id number] [address] [place] [address], [place] [address] Jul, [facility] [address] [id number] [address] [place] [address], [place] [address] Jul, [facility] [address] [id number] [address] [place] [address], [place] [address] Jun, [facility] [address] [id number] [address] [place] [address], [place] [address] Jun, [facility] [address] [id number] [address] [place] [address] 21 May, 2013 [facility] [address] [id number] [address] [place] [address] May, [facility] [address] [id number] [address] [place] [address] May, [facility] [address] [id number] [address] [place] [phone] May, [facility] [address] [id number] [address] [place] [phone] 19 Apr, 2013 [facility] [address] [id number] [address] [place] [phone] 18 Apr, 2013 [facility] [address] [id number] [address] [place] [phone] 17 Apr, 2013 IMMUNIZATIONS No Known Immunizations SOCIAL HISTORY Never Assessed REASON FOR VISIT U/S pelvic complete [facility] PLAN OF CARE VITAL SIGNS MEDICATIONS No Known Medications RESULTS Name Result Date Reference Range Ultrasound : PELVIC COMPLETE (IN-HOUSE) PROCEDURES Procedure Date Ordered Result Body Site US EXAM, PELVIC, COMPLETE November 01, 2018 INSTRUCTIONS MEDICATIONS ADMINISTERED No Known Medications MEDICAL (GENERAL) HISTORY Type Description Date Surgical History tonsils a nd adenoids remove Surgical History double masectomy
--- OUTSIDE RECORDS SUMMARY | 2019-11-10 14:34 | XMS REPORT ---
Author Author Michael RICHARD Organization [facility] Address [address] [place] [address] Care Team Providers Care Fresh Work Inspector Name Role Phone HILARY EAN Unavailable PROBLEMS Type Condition ICD9-CM Code DQQ21-RC Code Onset Dates Condition S tatus SNOMED Code Problem Tqxgoz-vi-xjvr transgender person F64.0 Active 698562234 Problem Recurrent major depressive disorder, in full remission F33.42 Active [id number] ALLERGIES No Information ENCOUNTERS Encounter Location Date Diagnosis [address] [address] Sep, [address] [address] Aug, Third trimester Z34.93 and Enc ounter for immunization Z23 [address] [address] Aug, [address] [address] Aug, Second trimester Z34.[address] [address] Jul, Recurrent major depressive disorder, in full remission F33.[address] [address] 16 Jul, 2019 Second trimester Z34.92 and 24 weeks gestation of Z3A.[address] [address] Jun, Second trimester Z34.92 ; Enco unter for immunization Z23 and Second trimester Z33.[address] [address] Jun, Second trimester fetus Z34.92 [facility] [address] [address] May, [place] [address] [address] May, Second trimester Z34.92 ; Seco nd trimester Z33.1 ; Encounter for immunization Z23 ; Recurrent major depressive disorder, in full remission F33.42 and 16 weeks gestation of Z3A.16 [place] [address] [address] 14 May, 2019 Second trimester Z33.1 [place] [address] [address] 23 Apr, 2019 First trimester Z34.91 and 12 weeks gestation of Z3A.12 [place] [address] [address] Apr, [place] [address] [address] Apr, [place] [address] [address] Apr, First trimester Z34.91 [place] [address] [address] Mar, [place] [address] [address] Mar, Positive test Z32.01 ; First t rimester Z34.91 ; Nausea and vomiting during O21.9 and 8 weeks gestation of Z3A.08 [place] [address] [address] Mar, [place] [address] [address] Mar, [place] [address] [address] December, Encounter for IUD removal Z30.432 [place] [address] [address] Nov, [facility] [address] [address] Oct, Pelvic pain R10.2 [facility] [address] [address] Oct, Pelvic pain R10.2 [facility] [address] [address] Oct, Condbr-ks-smjj transgender person F64.0 [facility] [address] [address] Oct, Bbopqu-sj-ewqf transgender person F64.0 ; Pelvic pain R10.2 and IUD surveillance Z30.431 [facility] [address] [address] Sep, [facility] [address] [address] Aug, [facility] [address] [address] Feb, Surveillance of previously prescribed in trauterine contraceptive device V25.42 [facility] [address] [address] Nov, [facility] [address] [address] Nov, [facility] [address] [address] Mar, [facility] [address] [address] Mar, [facility] [address] [address] Feb, [facility] [address] [address] Feb, [facility] [address] [address] Jan, [facility] [address] [id number] [facility] [place] [address] Jan, [facility] [address] [facility] [id number] [facility] [place] [address] Jan, [facility] [address] [facility] [id number] [facility] [place] [address] Jan, [facility] [address] [id number] [facility] [place] [address] Jan, [facility] [address] [id number] [facility] [place] [address] Jan, [facility] [address] [id number] [facility] [place] [address] Nov, [facility] [address] [id number] [place] [address] Nov, [facility] [address] [id number] [facility] [place] [address] Nov, [facility] [address] [facility] [id number] [place] [address] Nov, [facility] [address] [id number] [place] [address] Nov, [facility] [address] [id number] [place] [address] Nov, [facility] [address] [id number] [place] [address] 15 Nov, 2013 [facility] [address] [facility] [id number] [place] [address] 15 Nov, 2013 [facility] [address] [id number] [place] [address] 15 Nov, 2013 [facility] [address] [id number] [place] [address] 15 Nov, 2013 [facility] [address] [id number] [place] [address] 2013 [facility] [address] [id number] [place] [address] Nov, [facility] [address] [facility] [id number] [facility] [place] [address] Nov, [facility] [address] [facility] [id number] [place] [address] Nov, [facility] [address] [id number] [facility] [place] [address] Nov, [facility] [address] [id number] [facility] [place] [address] Nov, [facility] [address] [facility] [id number] [facility] [place] [address] Nov, [facility] [address] [id number] [place] [address] Nov, [facility] [address] [id number] [place] [address] Oct, [facility] [address] [id number] [place] [address] Oct, [facility] [address] [id number] [place] [address] Oct, [facility] [address] [id number] [place] [address] Oct, [facility] [address] [id number] [place] [address] Oct, [facility] [address] [id number] [place] [address] Oct, [facility] [address] [id number] [place] [address] Oct, [facility] [address] [id number] [place] [address] Oct, [facility] [address] [id number] [place] [address] Oct, [facility] [address] [id number] [place] [address] Oct, [facility] [address] [facility] [id number] [place] [address] Sep, [facility] [address] [facility] [id number] [place] [address] Sep, [facility] [address] [facility] [id number] [place] [address] Sep, [facility] [address] [id number] [place] [address] Sep, [facility] [address] [facility] [id number] [place] [address] Sep, [facility] [address] [id number] [place] [address] Sep, [facility] [address] [id number] [place] [address] 16 Aug, 2013 [facility] [address] [id number] [place] [address] Aug, [facility] [address] [id number] [place] [address] 15 Aug, 2013 [facility] [address] [id number] [place] [address] Aug, [facility] [address] [id number] [place] [address] 14 Aug, 2013 [facility] [address] [id number] [place] [address] Aug, [facility] [address] [id number] [place] [address] 14 Aug, 2013 [facility] [address] [id number] [place] [address] Aug, [facility] [address] [id number] [place] [address] Aug, [facility] [address] [id number] [place] [address] 17 Jul, 2013 [facility] [address] [id number] [place] [address] Jul, [facility] [address] [id number] [place] [address] Jul, [facility] [address] [id number] [place] [address] Jul, [facility] [address] [id number] [place] [address] Jun, [facility] [address] [place] [id number] [place] [address] Jun, [facility] [address] [id number] [place] [address] May, [facility] [address] [place] [id number] [place] [address] May, [facility] [address] [place] [id number] [place] [address] May, [facility] [address] [place] [id number] [place] [address] May, [facility] [address] [id number] [place] [address] Apr, [facility] [address] [id number] [place] [address] Apr, [facility] [address] [id number] [place] [address] Apr, IMMUNIZATIONS No Known Immunizations SOCIAL HISTORY Never Assessed REASON FOR VISIT PLAN OF CARE VITAL SIGNS MEDICATIONS Unknown Medications RESULTS No Results PROCEDURES No Known procedures INSTRUCTIONS MEDICATIONS ADMINISTERED No Known Medications MEDICAL (GENERAL) HISTORY Type Description Date Surgical History tonsils a nd adenoids remove Surgical History double masectomy Hospitalization History surgery Hospitalization History childbirth
--- OUTSIDE RECORDS SUMMARY | 2019-11-10 14:35 | XMS REPORT | Continuity of Care Document ---
Author Organization Unknown Address Unknown Phone Unavailable Allergies Active Description Code Type Severity Reaction Onset Reported/Identified Relationship to Patient Clinical Status Yes amoxicillin [id number] Drug Aller gy Unknown N/A 12/05/2013 Medications There is no data. Problems Date Dx Coded Attending Type Code Diagnosis Diagnosed By 09/27/2019 AKASH HERNANDEZ DO, Ot O62.9 ABNORMALITY OF FORCES OF LAB[employer], UNSPECIF 09/27/2019 AKASH HERNANDEZ DO Ot Z3A.00 WEEKS OF GESTATION OF NOT SPEC 09/28/2019 AKASH HERNANDEZ DO Ot O62.9 ABNORMALITY OF [employer]CES [employer], UNSPECIF 09/28/2019 AKASH HERNANDEZ DO, Ot Z3A.00 WEEKS OF GESTATION OF NOT SPEC 10/03/2019 TERENCE ARREOLA MD Ot O62.9 ABNORMALITY OF FORCES OF [employer], UNSPECIF 10/03/2019 TERENCE ARREOLA MD Ot W19.XXXA UNSPECIFIED FALL, INITIAL ENCOUNTER 10/03/2019 TERENCE ARREOLA MD Ot Z3A.3 3 33 WEEKS GESTATION OF 10/05/2019 TERENCE ARREOLA MD Ot O62.9 ABNORMALITY OF FORCES OF [employer], UNSPECIF 10/05/2019 TERENCE ARREOLA MD Ot W19.XXXA UNSPECIFIED FALL, INITIAL ENCOUNTER 10/05/2019 TERENCE ARREOLA MD Ot Z3A.3 3 33 WEEKS GESTATION OF 10/19/2019 EAN RICHARD MD Ot O62 .9 ABNORMALITY OF FORCES OF [employer], UNSPECIF 10/19/2019 EAN RICHARD MD Ot Z3A.35 35 WEEKS GESTATION OF 10/21/2019 EAN RICHARD MD Ot O62 .9 ABNORMALITY OF FORCES OF [employer], UNSPECIF 10/21/2019 EAN RICHARD MD Ot Z3A.35 35 WEEKS GESTATION OF 11/02/2019 EAN RICHARD MD Ot O62 .9 ABNORMALITY OF FORCES OF [employer], UNSPECIF 11/02/2019 EAN RICHARD MD, Ot Z3A.35 35 WEEKS GESTATION OF Procedures There is no data. Results Test Result Range LIPID PANEL - 10/18/18 11:53 CHOLESTEROL, TOTAL 146 mg/dL <200 HDL CHOLESTEROL 42 mg/dL >50 TRIGLYCERIDES 75 mg/dL <150 LDL-CHOLESTEROL 88 mg/dL (calc) NRG CHOL/HDLC RATIO 3.5 (calc) <5.0 NON HDL CHOLESTEROL 104 mg/dL (calc) <13 0 CMP - 10/18/18 11:53 GLUCOSE 85 mg/dL 65-99 UREA NITROGEN (BUN) 11 mg/dL 7-25 CREATININE 0.62 mg/dL 0.50-1.10 eGFR NON-AFR. WALLISIAN 130 mL/min/1.73m2 > OR = 60 eGFR 150 mL/min/1.73m2 > OR = 60 BUN/CREATININE RATIO NOT APPLICABLE (calc) 6-22 SODIUM 139 mmol/L 135-146 POTASSIUM 4.0 mmol/L 3.5-5.3 CHLORIDE 103 mmol/L 98-110 CARBON DIOXIDE 29 mmol/L 20-32 CALCIUM 9.7 mg/dL 8.6-10.2 PROTEIN, TOTAL 7.1 g/dL 6.1-8.1 ALBUMIN 4.9 g/dL 3.6-5.1 GLOBULIN 2.2 g/dL (calc) 1.9-3.7 ALBUMIN/GLOBULIN RATIO 2.2 (calc) 1.0-2. 5 BILIRUBIN, TOTAL 0.9 mg/dL 0.2-1.2 ALKALINE PHOSPHATASE 74 U/L 33-115 AST 21 U/L 10-30 ALT 24 U/L 6-29 CBC - 10/18/18 11:53 WHITE BLOOD CELL COUNT 7.7 Thousand/uL 3 .8-10.8 RED BLOOD CELL COUNT 4.75 Million/uL 3.8 0-5.10 HEMOGLOBIN 14.6 g/dL 11.7-15.5 HEMATOCRIT 43.1 % 35.0-45.0 MCV 90.7 fL 80.0-100.0 MCH 30.7 pg 27.0-33.0 MCHC 33.9 g/dL 32.0-36.0 RDW 12.2 % 11.0-15.0 PLATELET COUNT 209 Thousand/uL 140-400 MPV 12.1 fL 7.5-12.5 ABSOLUTE NEUTROPHILS 5267 cells/uL 1500- 7800 ABSOLUTE LYMPHOCYTES 1686 cells/uL 850-3 900 ABSOLUTE MONOCYTES 539 cells/uL 200-950 ABSOLUTE EOSINOPHILS 162 cells/uL 15-500 ABSOLUTE BASOPHILS 46 cells/uL 0-200 NEUTROPHILS 68.4 % NRG LYMPHOCYTES 21.9 % NRG MONOCYTES 7.0 % NRG EOSINOPHILS 2.1 % NRG BASOPHILS 0.6 % NRG FSH, SERUM - 10/18/18 11:53 FSH 2.5 mIU/mL NRG LH - 10/18/18 11:53 LH 1.4 mIU/mL NRG TESTOSTERONE, FREE AND TOTAL - 10/18/18 11:53 TESTOSTERONE, TOTAL, LC/MS/MS 30 ng/dL 2-45 TESTOSTERONE, FREE 1.9 pg/mL 0.2-5.0 TESTOSTERONE,BIOAVAILABLE 4.2 ng/dL 0.5- 8.5 SEX HORMONE BINDING GLOBULIN 69 nmol/L 1 7-124 ALBUMIN,SERUM 4.9 g/dL 3.6-5.1 CULTURE, URINE - 04/11/19 15:49 CULTURE, URINE, ROUTINE SEE NOTE NRG CULTURE, URINE - 05/09/19 14:10 CULTURE, URINE, ROUTINE SEE NOTE NRG CULTURE, URINE - 06/06/19 10:56 CULTURE, URINE, ROUTINE SEE NOTE NRG SYPHILIS (RPR W/ REFLEX CONFIRMATION) - 08/29/19 15:07 RPR (DX) W/REFL TITER AND CONFIRMATORY TESTING NON-REACTIVE NON-REACTIVE Complete urinalysis with reflex to cultu re - 09/27/19 16:05 Urine color determination YELLOW NRG Urine clarity determination OTHER NR G Urine pH measurement by test strip 6.5 5-9 Specific gravity of urine by test strip 1.010 1.016-1.022 Urine protein assay by test strip, semi-quantitative NEGATIVE NEGATIVE Urine glucose detection by automated test strip NE GATIVE NEGATIVE Erythrocytes detection in urine sediment by light micr oscopy NEGATIVE NEGATIVE Urine ketones detection by automated test strip NE GATIVE NEGATIVE Urine nitrite detection by test strip NEGATIVE NEGATIVE Urine total bilirubin detection by test strip NEGA TIVE NEGATIVE Urine urobilinogen measurement by automated test strip (mass/volume) 0.2 mg/dL < = 1.0 Urine leukocyte esterase detection by dipstick 1+ NEGATIVE Automated urine sediment erythrocyte cou nt by microscopy (number/high power field) NONE NRG Automated urine sediment leukocyte count by microscopy (number/high power field) [HPF] NRG Bacteria detection in urine sediment by light microsco py MODERATE NRG Squamous epithelial cells detection in u rine sediment by light microscopy 25-50 NRG Crystals detection in urine sediment by light microsco py NONE NRG Casts detection in urine sediment by light microscopy NONE NRG Mucus detection in urine sediment by light microscopy NEGATIVE NRG Complete urinalysis with reflex to culture YES NRG Bacterial urine culture - 09/27/19 16:05 Bacterial urine culture SEE COMMEN NRG COLONY COUNT . NRG CULTURE, GROUP B STREP WITH SUSCEPTIBILI TY - 10/27/19 19:00 CULTURE, GROUP B STREP WITH SUSCEPTIBILITY SEE NOT E NRG Complete blood count (CBC) with automate d white blood cell (WBC) differential - 11/10/19 12:58 Blood leukocytes automated count (number/volume) 10.0 10*3/uL 4.3-11.0 Blood erythrocytes automated count (number/volume) 4.23 10*6/uL 4.35-5.85 Venous blood hemoglobin measurement (mass/volume) 12.7 g/dL 11.5-16.0 Blood hematocrit (volume fraction) 38 % 35-52 Automated erythrocyte mean corpuscular volume 91 [ foz_us] 80-99 Automated erythrocyte mean corpuscular h emoglobin (mass per erythrocyte) 30 pg 25-34 Automated erythrocyte mean corpuscular h emoglobin concentration measurement (mass/volume) 33 g/dL 32-36 Automated erythrocyte distribution width ratio 12. 9 % 10.0- 14.5 Automated blood platelet count (count/volume) 107 10*3/uL 130-400 Automated blood neutrophils/100 leukocytes 74 % 42-75 Automated blood lymphocytes/100 leukocytes 17 % 12-44 Blood monocytes/100 leukocytes 8 % 0-12 Automated blood eosinophils/100 leukocytes 1 % 0-10 Automated blood basophils/100 leukocytes 0 % 0-10 Blood neutrophils automated count (number/volume) 7.4 10*3 1.8-7.8 Blood lymphocytes automated count (number/volume) 1.7 10*3 1.0-4.0 Blood monocytes automated count (number/volume) 0. 8 10*3 0.0-1.0 Automated eosinophil count 0.1 10*3/uL 0 .0-0.3 Automated blood basophil count (count/volume) 0.0 10*3/uL 0.0-0.1 Blood type T Indirect antibody screen pa kenya - 11/10/19 12:58 WRISTBAND NUMBER [id number] NRG ABO+Rh group ABN NRG Blood group antibody screen NEGATIVE NR G Encounters ACCT No. Visit Date/Time Discharge Status Pt. Type Provider Facility Loc./Unit Complaint [id number] 11/01/2019 14:20:00 11/01/2019 23:59:5 9 CLS Outpatient TERENCE ARREOLA [facility] [id number] 10/27/2019 14:20:00 Document Registration [id number] 08/29/2019 14:20:00 Document Registration [id number] 06/06/2019 10:00:00 Document Registration [id number] 05/09/2019 14:20:00 Document Registration [id number] 04/11/2019 14:20:00 Document Registration [id number] 10/18/2018 11:00:00 Document Registration [id number] 11/07/2019 09:30:00 21:44:00 DIS Outpatient EAN RICHARD MD [facility] CONTRACTIONS [id number] 10/19/2019 17:32:00 20:25:00 DIS Outpatient EAN RICHARD MD [facility] COMPLAINT OF CONTRACTIO NS [id number] 10/03/2019 15:53:00 20:05:00 DIS Outpatient TERENCE ARREOLA MD [facility] FELL UP STAIRS,NO CURRE NT PAIN [id number] 09/27/2019 15:54:00 17:35:00 DIS Outpatient AKASH HERNANDEZ DO [facility] CONTRACTIONS [id number] 12/05/2013 19:43:00 16:00:00 DIS Inpatient [id number] 11/27/2013 23:36:00 00:55:00 DIS Outpatient [id number] 08/30/2013 14:07:00 23:59:59 CLS Outpatient [id number] 07/18/2013 13:24:00 23:59:59 CLS Outpatient [id number] 06/08/2013 14:38:00 23:59:59 CLS Outpatient [id number] 11/12/2019 19:00:00 Maddie RICHARD MD, EAN DAVIS [id number] 11/10/2019 13:19:00 Document Registration
--- OUTSIDE RECORDS SUMMARY | 2019-11-10 14:35 | XMS REPORT ---
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 [id number] ALLERGIES No Information ENCOUNTERS Encounter Location Date Diagnosis [place] [id number] [place] [address] December, Encounter for IUD removal Z3 0.432 [place] N [place] [id number] [address] [place] [address] Nov, [facility] [address] [facility] [id number] [address] [place] [address] Oct, Pelvic pain R10.2 [facility] [address] [facility] [id number] [address] [place] [address] Oct, Pelvic pain R10.2 [facility] [address] [place] [id number] [address] [place] [address] Oct, Dsgktk-ns-bows transgender p erson F64.0 [facility] [address] [facility] [id number] [address] [place] [address] Oct, Dqroep-pe-rzhc transgender p erson F64.0 ; Pelvic pain R10.2 and IUD surveillance Z30.431 [facility] [address] [facility] [id number] [address] [place] [address] Sep, [facility] [address] [facility] [id number] [address] [place] [address] Aug, [facility] [address] [id number] [address] [place] [address] Feb, Surveillance of previously p rescribed intrauterine contraceptive device V25.42 [facility] [address] [id number] [address] [place] [address], [place] [address] Nov, [facility] [address] [id number] [address] [place] [address] Nov, [facility] [address] [id number] [address] [place] [address], [place] [address] Mar, [facility] [address] [id number] [address] [place] [address], [place] [address] Mar, [facility] [address] [id number] [address] [place] [address] Feb, [facility] [address] [id number] [address] [place] [address], [place] [address] Feb, [facility] [address] [id number] [address] [place] [address] Jan, [facility] [address] [id number] [address] [place] [address] Jan, [facility] [address] [id number] [address] [place] [address] Jan, [facility] [address] [id number] [address] [place] [address] Jan, [facility] [address] [id number] [address] [place] [address] Jan, [facility] [address] [id number] [address] [place] [address] Jan, [facility] [address] [id number] [address] [place] [address] Nov, [facility] [address] [id number] [address] [place] [address] Nov, [facility] [address] [id number] [address] [place] [address] [place] [address] Nov, [facility] [address] [id number] [address] [place] [address], [place] [address] Nov, [facility] [address] [id number] [address] [place] [address], [place] [address] Nov, [facility] [address] [id number] [address] [place] [address], [place] [address] Nov, [facility] [address] [id number] [address] [place] [address], [place] [address] Nov, [facility] [address] [id number] [address] [place] [address], [place] [address] Nov, [facility] [address] [id number] [address] [place] [address], [place] [address] Nov, [facility] [address] [id number] [address] [place] [address], [place] [address] Nov, [facility] [address] [id number] [address] [place] [address], [place] [address] Nov, [facility] [address] [id number] [address] [place] [address], [place] [address] Nov, [facility] [address] [id number] [address] [place] [address], [place] [address] Nov, [facility] [address] [id number] [address] [place] [address], [place] [address] Nov, [facility] [address] [id number] [address] [place] [address], [place] [address] Nov, [facility] [address] [id number] [address] [place] [address], [place] [address] Nov, [facility] [address] [id number] [address] [place] [address], [place] [address] Nov, [facility] [address] [id number] [address] [place] [address], [place] [address] Nov, [facility] [address] [id number] [facility] [place] [address] Oct, [facility] [address] [id number] [facility] [place] [address] Oct, [facility] [address] [id number] [facility] [place] [address] Oct, [facility] [address] [id number] [facility] [place] [address] Oct, [facility] [address] [id number] [facility] [place] [address] Oct, [facility] [address] [id number] [address] [place] [address], [place] [address] Oct, [facility] [address] [id number] [address] [place] [address], [place] [address] Oct, [facility] [address] [id number] [address] [place] [address], [place] [address] Oct, [facility] [address] [id number] [address] [place] [address], [place] [address] Oct, [facility] [address] [id number] [address] [place] [address], [place] [address] Oct, [facility] [address] [id number] [address] [place] [address], [place] [address] Sep, [facility] [address] [id number] [address] [place] [address], [place] [address] Sep, [facility] [address] [id number] [address] [place] [address], [place] [address] Sep, [facility] [address] [id number] [address] [place] [address], [place] [address] Sep, [facility] [address] [id number] [address] [place] [address], [place] [address] Sep, [facility] [address] [id number] [address] [place] [address], [place] [address] 11 Sep, 2013 [facility] [address] [id number] [address] [place] [address], [place] [address] 16 Aug, 2013 [facility] [address] [id number] [address] [place] [address], [place] [address] 16 Aug, 2013 [facility] [address] [id number] [address] [place] [address], [place] [address] 15 Aug, 2013 [facility] [address] [id number] [address] [place] [address], [place] [address] 14 Aug, 2013 [facility] [address] [id number] [address] [place] [address], [place] [address] Aug, [facility] [address] [id number] [address] [place] [address], [place] [address] Aug, [facility] [address] [id number] [address] [place] [address], [place] [address] Aug, [facility] [address] [id number] [address] [place] [address], [place] [address] Aug, [facility] [address] [id number] [address] [place] [address], [place] [address] Aug, [facility] [address] [id number] [address] [place] [address], [place] [address] Jul, [facility] [address] [id number] [address] [place] [address], [place] [address] Jul, [facility] [address] [id number] [address] [place] [address], [place] [address] Jul, [facility] [address] [id number] [address] [place] [address], [place] [address] Jul, [facility] [address] [id number] [address] [place] [address], [place] [address] Jun, [facility] [address] [id number] [address] [place] [address], [place] [address] Jun, [facility] [address] [id number] [address] [place] [address] 21 May, 2013 [facility] [address] [id number] [address] [place] [address] May, [facility] [address] [id number] [address] [place] [address] May, [facility] [address] [id number] [address] [place] [address] May, [facility] [address] [id number] [address] [place] [address] 19 Apr, 2013 [facility] [address] [id number] [address] [place] [address] 18 Apr, 2013 [facility] [address] [id number] [address] [place] [address] 17 Apr, 2013 IMMUNIZATIONS No Known Immunizations SOCIAL HISTORY Never Assessed REASON FOR VISIT Ultrasound Order Change PLAN OF CARE VITAL SIGNS MEDICATIONS No Known Medications RESULTS No Results PROCEDURES No Known procedures INSTRUCTIONS MEDICATIONS ADMINISTERED No Known Medications MEDICAL (GENERAL) HISTORY Type Description Date Surgical History tonsils a nd adenoids remove Surgical History double masectomy
--- OUTSIDE RECORDS SUMMARY | 2019-11-10 14:35 | XMS REPORT ---
Author Author Michael Wagner Doctor Organization [facility] Address Unknown Phone Unavailable Care Team Providers Care Residential Supervisor Name Role Phone Migration, Doctor Unavailable Unavailable PROBLEMS Type Condition ICD9-CM Code [id number] Code Onset Dates Condition S tatus SNOMED Code Problem Apbxdi-it-kiyi transgender person F64.0 Active [id number] ALLERGIES No Information ENCOUNTERS Encounter Location Date Diagnosis [place] [address] [facility] [id number] [address] [place] [address] December, Encounter for IUD removal Z3 0.432 [place] [address] [facility] [id number] [address] [place] [address] Nov, [place] [address] [facility] [id number] [address] [place] [address] Oct, Pelvic pain R10.2 [place] [address] [facility] [id number] [address] [place] [address] Oct, Pelvic pain R10.2 [place] [address] [facility] [id number] [address] [place] [address] Oct, Vsdjfb-eq-jksx transgender p erson F64.0 [place] [address] [facility] [id number] [address] [place] [address] Oct, Jbsriz-zp-arel transgender p erson F64.0 ; Pelvic pain R10.2 and IUD surveillance Z30.431 [place] [address] [facility] [id number] [address] [place] [address] Sep, [place] [address] [facility] [id number] [address] [place] [address] Aug, [facility] [address] [facility] [id number] [address] [place] [address] 28 Anjel, 2015 Surveillance of previously p rescribed intrauterine contraceptive device V25.42 [facility] [address] [id number] [address] [place] [address] Nov, [facility] [address] [id number] [address] [place] [address] Nov, [facility] [address] [id number] [address] [place] [address] Mar, [facility] [address] [id number] [address] [place] [address] Mar, [facility] [address] [id number] [address] [place] [address] Feb, [facility] [address] [id number] [address] [place] [address] Feb, [facility] [address] [id number] [address] [place] [address] Jan, [facility] [address] [id number] [address] [place] [address] Jan, [facility] [address] [id number] [address] [place] [address] Jan, [facility] [address] [id number] [address] [place] [address] Jan, [facility] [address] [id number] [address] [place] [address] Jan, [facility] [address] [id number] [address] [place] [address] Jan, [facility] [address] [id number] [address] [place] [address] Nov, [facility] [address] [id number] [address] [place] [address] Nov, [facility] [address] [id number] [address] [place] [address] Nov, [facility] [address] [id number] [facility] [place] [address] Nov, [facility] [address] [id number] [facility] [place] [address] Nov, [facility] [address] [id number] [address] [place] [address], [place] [address] Nov, [facility] [address] [id number] [address] [place] [address], [place] [address] Nov, [facility] [address] [id number] [address] [place] [address], [place] [address] Nov, [facility] [address] [id number] [address] [place] [address], [place] [address] Nov, [facility] [address] [id number] [address] [place] [address], [place] [address] Nov, [facility] [address] [id number] [address] [place] [address], [place] [address] Nov, [facility] [address] [id number] [address] [place] [address], [place] [address] Nov, [facility] [address] [id number] [address] [place] [address], [place] [address] Nov, [facility] [address] [id number] [address] [place] [address], [place] [address] Nov, [facility] [address] [id number] [address] [place] [address], [place] [address] Nov, [facility] [address] [id number] [address] [place] [address], [place] [address] Nov, [facility] [address] [id number] [address] [place] [address], [place] [address] Nov, [facility] [address] [id number] [address] [place] [address], [place] [address] Nov, [facility] [address] [id number] [address] [place] [address], [place] [address] Oct, [facility] [address] [id number] [facility] [place] [address] Oct, [facility] [place] [address] [id number] [facility] [place] [address] Oct, [facility] [place] [facility] [address] [id number] [facility] [place] [address] Oct, [facility] [place] [facility] [address] [id number] [address] [place] [address], [place] [address] Oct, [facility] [address] [id number] [facility] [place] [address] Oct, [facility] [place] [address] [id number] [address] [place] [address], [place] [address] Oct, [facility] [address] [id number] [address] [place] [address], [place] [address] Oct, [facility] [address] [id number] [address] [place] [address], [place] [address] Oct, [facility] [place] [facility] [address] [id number] [address] [place] [address], [place] [address] Oct, [facility] [place] [facility] [address] [id number] [address] [place] [address], [place] [address] Sep, [facility] [place] [facility] [address] [id number] [address] [place] [address], [place] [address] Sep, [facility] [place] [address] [id number] [address] [place] [address], [place] [address] Sep, [facility] [place] [address] [id number] [address] [place] [address], [place] [address] Sep, [facility] [place] [facility] [address] [id number] [address] [place] [address], [place] [address] Sep, [facility] [place] [facility] [address] [id number] [address] [place] [address], [place] [address] Sep, [facility] [place] [facility] [address] [id number] [address] [place] [address] 16 Aug, 2013 [facility] [address] [id number] [address] [place] [address], [place] [address] 16 Aug, 2013 [facility] [address] [id number] [address] [place] [address], [place] [address] 15 Aug, 2013 [facility] [address] [id number] [address] [place] [address], [place] [address] 14 Aug, 2013 [facility] [address] [id number] [address] [place] [address], [place] [address] 14 Aug, 2013 [facility] [address] [id number] [address] [place] [address], [place] [address] Aug, [facility] [address] [id number] [address] [place] [address], [place] [address] Aug, [facility] [address] [id number] [address] [place] [address], [place] [address] Aug, [facility] [address] [id number] [address] [place] [address], [place] [address] Aug, [facility] [address] [id number] [address] [place] [address], [place] [address] 17 Jul, 2013 [facility] [address] [id number] [address] [place] [address], [place] [address] 17 Jul, 2013 [facility] [address] [id number] [address] [place] [address], [place] [address] 05 Jul, 2013 [facility] [address] [id number] [address] [place] [address], [place] [address] 05 Jul, 2013 [facility] [address] [id number] [address] [place] [address], [place] [address] Jun, [facility] [address] [id number] [address] [place] [address], [place] [address] Jun, [facility] [address] [id number] [address] [place] [address], [place] [address] May, [facility] [address] [facility] [id number] [address] [place] [address] May, [facility] [address] [facility] [id number] [address] [place] [address] May, [facility] [address] [facility] [id number] [address] [place] [address] May, [facility] [address] [facility] [id number] [address] [place] [phone] 19 Apr, 2013 [facility] [address] [facility] [id number] [address] [place] [id number] 18 Apr, 2013 [facility] [address] [facility] [id number] [address] [place] [id number] 17 Apr, 2013 IMMUNIZATIONS No Known Immunizations SOCIAL HISTORY Never Assessed REASON FOR VISIT EMR-[facility] PLAN OF CARE VITAL SIGNS MEDICATIONS No Known Medications RESULTS No Results PROCEDURES No Known procedures INSTRUCTIONS MEDICATIONS ADMINISTERED No Known Medications MEDICAL (GENERAL) HISTORY Type Description Date Surgical History tonsils a nd adenoids remove Surgical History double masectomy
--- OUTSIDE RECORDS SUMMARY | 2019-11-10 14:35 | XMS REPORT ---
Author Author Michael Wagner Doctor Organization [facility] Address Unknown Phone Unavailable Care Team Providers Care Date Pitter Name Role Phone Migration, Doctor Unavailable Unavailable PROBLEMS Type Condition ICD9-CM Code [id number] Code Onset Dates Condition S tatus SNOMED Code Problem Tmeehu-tq-jiny transgender person F64.0 Active [id number] ALLERGIES Substance Reaction Event Type Date Status Amoxicillin Unknown Drug Allergy Nov, Active ENCOUNTERS Encounter Location Date Diagnosis [place] [address] [address] [facility] [id number] [address] [place] [id number] December, Encounter for IUD removal Z3 0.432 [place] [address] [address] [facility] [id number] [address] [place] [address] Nov, [place] [address] [address] [facility] [id number] [address] [place] [address] Oct, Pelvic pain R10.2 [place] [address] [id number] [address] [place] [address] Oct, Pelvic pain R10.2 [facility] [address] [facility] [id number] [address] [place] [address] Oct, Hizuhe-tc-kaur transgender p erson F64.0 [facility] [address] [facility] [id number] [address] [place] [address] Oct, Xlzulh-wr-jiil transgender p erson F64.0 ; Pelvic pain R10.2 and IUD surveillance Z30.431 [facility] [address] [facility] [id number] [address] [place] [address] Sep, [facility] [address] [id number] [address] [place] [address] Aug, [facility] [address] [facility] [id number] [address] [place] [address] Feb, Surveillance of previously p rescribed intrauterine contraceptive device V25.42 [facility] [address] [id number] [address] [place] [address], [place] [address] Nov, [facility] [address] [id number] [address] [place] [phone] Nov, [facility] [address] [id number] [address] [place] [address] Mar, [facility] [address] [id number] [address] [place] [address], [place] [address] Mar, [facility] [address] [id number] [address] [place] [address], [place] [address] Feb, [facility] [address] [id number] [address] [place] [address] Feb, [facility] [address] [id number] [address] [place] [address] Jan, [facility] [address] [id number] [address] [place] [address] Jan, [facility] [address] [id number] [address] [place] [address] Jan, [facility] [address] [id number] [address] [place] [address] Jan, [facility] [address] [id number] [address] [place] [address] Jan, [facility] [address] [id number] [address] [place] [address] Jan, [facility] [address] [id number] [address] [place] [address] Nov, [facility] [address] [id number] [address] [place] [address] Nov, [facility] [address] [id number] [address] [place] [address] Nov, [facility] [address] [id number] [address] [place] [address], [place] [address] Nov, [facility] [address] [id number] [address] [place] [address], [place] [address] Nov, [facility] [address] [id number] [address] [place] [address], [place] [address] Nov, [facility] [address] [id number] [address] [place] [address], [place] [address] Nov, [facility] [address] [id number] [address] [place] [address], [place] [address] Nov, [facility] [address] [id number] [address] [place] [address], [place] [address] Nov, [facility] [address] [id number] [address] [place] [address], [place] [address] Nov, [facility] [address] [id number] [address] [place] [address], [place] [address] Nov, [facility] [address] [id number] [address] [place] [address], [place] [address] Nov, [facility] [address] [id number] [address] [place] [address], [place] [address] Nov, [facility] [address] [id number] [address] [place] [address], [place] [address] Nov, [facility] [address] [id number] [address] [place] [address], [place] [address] Nov, [facility] [address] [id number] [address] [place] [address], [place] [address] Nov, [facility] [address] [id number] [address] [place] [address], [place] [address] Nov, [facility] [address] [id number] [address] [place] [address], [place] [address] Nov, [facility] [address] [id number] [address] [place] [address], [place] [address] Oct, [facility] [address] [id number] [facility] [place] [address] Oct, [facility] [address] [id number] [address] [place] [address], [place] [address] Oct, [facility] [address] [id number] [address] [place] [address], [place] [address] Oct, [facility] [address] [id number] [address] [place] [address], [place] [address] Oct, [facility] [address] [id number] [address] [place] [address], [place] [address] Oct, [facility] [address] [id number] [address] [place] [address], [place] [address] Oct, [facility] [address] [id number] [address] [place] [address], [place] [address] Oct, [facility] [address] [id number] [address] [place] [address], [place] [address] Oct, [facility] [address] [id number] [address] [place] [address], [place] [address] Oct, [facility] [address] [id number] [address] [place] [address], [place] [address] Sep, [facility] [address] [id number] [address] [place] [address], [place] [address] Sep, [facility] [address] [id number] [address] [place] [address], [place] [address] Sep, [facility] [address] [id number] [address] [place] [address], [place] [address] Sep, [facility] [address] [id number] [address] [place] [address], [place] [address] Sep, [facility] [address] [id number] [address] [place] [address], [place] [address] Sep, [facility] [address] [id number] [address] [place] [address], [place] [address] 16 Aug, 2013 [facility] [address] [id number] [address] [place] [address], [place] [address] 16 Aug, 2013 [facility] [address] [id number] [address] [place] [address], [place] [address] 15 Aug, 2013 [facility] [address] [id number] [address] [place] [address], [place] [address] Aug, [facility] [address] [id number] [address] [place] [address], [place] [address] Aug, [facility] [address] [id number] [address] [place] [address], [place] [address] Aug, [facility] [address] [id number] [address] [place] [address], [place] [address] Aug, [facility] [address] [id number] [address] [place] [address], [place] [address] Aug, [facility] [address] [id number] [address] [place] [address], [place] [address] Aug, [facility] [address] [id number] [address] [place] [address], [place] [address] Jul, [facility] [address] [id number] [address] [place] [address], [place] [address] Jul, [facility] [address] [id number] [address] [place] [address], [place] [address] Jul, [facility] [address] [id number] [address] [place] [address], [place] [address] Jul, [facility] [address] [id number] [address] [place] [address], [place] [address] Jun, [facility] [address] [id number] [address] [place] [address], [place] [address] Jun, [facility] [address] [id number] [address] [place] [address] May, [facility] [address] [facility] [id number] [address] [place] [address] May, [facility] [address] [facility] [id number] [address] [place] [address] May, [facility] [address] [facility] [id number] [address] [place] [address] May, [facility] [address] [facility] [id number] [address] [place] [address] 19 Apr, 2013 [facility] [address] [facility] [id number] [address] [place] [address] 18 Apr, 2013 [facility] [address] [facility] [id number] [address] [place] [address] 17 Apr, 2013 IMMUNIZATIONS No Known Immunizations SOCIAL HISTORY Never Assessed REASON FOR VISIT EMR-[facility] PLAN OF CARE VITAL SIGNS MEDICATIONS No Known Medications RESULTS No Results PROCEDURES No Known procedures INSTRUCTIONS MEDICATIONS ADMINISTERED No Known Medications MEDICAL (GENERAL) HISTORY Type Description Date Surgical History tonsils a nd adenoids remove Surgical History double masectomy
[2019-11-10] MEDS ORDERED: diphenhydrAMINE 50 MG/ML INJ (BENADRYL) ONE (14:43)
[2019-11-10] MEDS ORDERED: diphenhydrAMINE 50 MG/ML INJ (BENADRYL) IVP PRN (15:00)
--- NOTE | 2019-11-10 15:37 | History & Physical-OB ---
OB - Chief Complaint & HPI Date/Time Date of Admission: Date of Admission: Nov 10, 2019 at 12:16 Date seen by a Provider: Nov 10, 2019 Time Seen by a Provider: 15:34 Chief Complaint/History OB-Reason for Admission/Chief: Onset of Labor Hx : 2 Hx Para: 1 Expected Date of Delivery: Nov 18, 2019 Gestational Age in Weeks: 38 Gestational Age in Days: 6 History of Labs AB Negative, antibody neg, RI. HIV/hepB/RPR NR. GBS pos. Allergies and Home Medications Allergies Coded Allergies: Amoxicillin (Verified Allergy, Unknown, 12/05/13) Home Medications Doxylamine Succinate 25 Mg Tablet, 25 MG PO HS, (Reported) Escitalopram Oxalate 20 Mg Tablet, 20 MG PO DAILY, (Reported) Vit/Fe Fumarate/Fa 1 Each Tablet, 1 EACH PO DAILY, (Reported) Promethazine HCl 25 Mg Tablet, 25 MG PO Q6H PRN for NAUSEA/VOMITING, (Reported) Patient Home Medication List Home Medication List Reviewed: Yes OB - History Hx of Present Care: Yes Ultrasounds: Normal mid trimester US Obstetrical Complications: None Medical Complications: Psychiatric (depression) Information Induced Hypertension: No Maternal Gestational Diabetes: No Hemorrhage: No Obstetrical History Hx : 2 Hx Para: 1 Hx # Term Pregnancies: 1 Hx # Pregnancies: 0 Number of Living Children: 1 Hx Termination: No Hx Multiple Gestation: No Hx Ectopic : No Hx Stillbirth: No Hx Complication: No Hx Induced Hypertens: No Hx Maternal Gestational Diabet: No Hx Hemorrhage: No Delivery History Hx Dystocia: No Hx Forceps Assisted Delivery: No Hx Vacuum Extraction Assisted: No Hx Placenta Abnormality: No Hx Distress: No Hx Large For Gestational Age I: No Hx Small for Gestational Age I: No Hx Section: No Hx Vaginal Delivery Post C-Sec: No Hx Blood Disorders: No Adverse Rxn to Tranfusion: No Patient Past Medical History PMHx: Depression 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 SurgHx: Tonsillectomy Mastectomy Social History/Family History HIV/AIDS: No Recent Infectious Disease Expo: No Alcohol Use: Denies Use Recreational Drug Use: No Smoking Cessation: Never smoker 2nd Hand Smoke Exposure: No Immunizations Date of Influenza Vaccine: Jul 09, 2019 Rubella: immune RPR/VDRL: Negative GBS Status: Positive HBsAG: Negative OB - Admission Exam Physical Exam Vitals: Vital Signs 11/10/19 12:27 Pulse 85 Resp 18 B/P (MAP) 123/64 (83) Pulse Ox 98 O2 Delivery Room Air HEENT: NCAT Cervical Dilatation: 5cm Effacement: Other (60%) Station: -3 Membranes: Ruptured (AROM at time of exam) Amniotic Fluid: Clear Heart Rate: 140's Accelerations: Accelerations Present Decelerations: No Decelerations Short Term Variability: Present Decal Applier Variability: Average (6-25) Contractions on Admission: 6-10 Minutes Apart Labs Laboratory Tests Test 11/10/19 12:58 Range/Units White Blood Count 10.0 4.3-11.0 10^3/uL Red Blood Count 4.23 L 4.35-5.85 10^6/uL Hemoglobin 12.7 11.5-16.0 G/DL Hematocrit 38 35-52 % Mean Corpuscular Volume 91 80-99 FL Mean Corpuscular Hemoglobin 30 25-34 PG Mean Corpuscular Hemoglobin Concent 33 32-36 G/DL Red Cell Distribution Width 12.9 10.0-14.5 % Platelet Count 107 L 130-400 10^3/uL Mean Platelet Volume 7.4-10.4 FL Neutrophils (%) (Auto) 74 42-75 % Lymphocytes (%) (Auto) 17 12-44 % Monocytes (%) (Auto) 8 0-12 % Eosinophils (%) (Auto) 1 0-10 % Basophils (%) (Auto) 0 0-10 % Neutrophils # (Auto) 7.4 1.8-7.8 X 10^3 Lymphocytes # (Auto) 1.7 1.0-4.0 X 10^3 Monocytes # (Auto) 0.8 0.0-1.0 X 10^3 Eosinophils # (Auto) 0.1 0.0-0.3 10^3/uL Basophils # (Auto) 0.0 0.0-0.1 10^3/uL OB - Assessment/Plan/Diagnosis Assessment Assessment: active labor Admission Dx Active labor at full term 38 weeks gestation GBS positive Admission Status: Inpatient Order (span 2 midnights) Reason for Inpatient Admission: Labor, delivery, course Plan Plan: Expectant Management Induction Method: AROM Other Plan GBS pos, allergic to PCN, culture with GBS resistant to clindamycin, treat with vancomycin HILARY,EAN N MD Nov 10, 2019 15:37
[2019-11-10] MEDS ORDERED: fentaNYL 2 mcg/ml BUPIVA 0.125 100 ML ONE (15:54)
--- NOTE | 2019-11-10 15:57 | NUR ---
Anesthesia called and notified of epidural request
[2019-11-10] MEDS ORDERED: fentaNYL INJECTION 100 MCG/2 ML AMP ONE (16:41)
[2019-11-10] MEDS ORDERED: LIDOCAINE PF 2% 5 ML (XYLOCAINE) VIAL ONE (16:41)
[2019-11-10] MEDS ORDERED: BUPIVACAINE 0.25% 30 ML (SENSORCAINE) VIAL ONE (16:41)
[2019-11-10] MEDS ORDERED: LACTATED RINGERS 1,000 ML IV SCH (16:42)
[2019-11-10] MEDS ORDERED: EPIDURAL (fentaNYL 2 MCG/ML BUPIVA 0.125%)100 ML BAG EPI PRN (16:45)
[2019-11-10] MEDS ORDERED: diphenhydrAMINE 50 MG/ML INJ (BENADRYL) IV PRN (16:45)
[2019-11-10] MEDS ORDERED: NALOXONE 0.4 MG/ML 1 ML (NARCAN) VIAL IV PRN (16:45)
[2019-11-10] MEDS ORDERED: ONDANSETRON 4 MG/2 ML (SDV) Z0FRAN IV PRN (16:45)
--- NOTE | 2019-11-10 19:59 | NUR ---
SVE at pt bedside. 9cm dilated, 100% effaced
--- NOTE | 2019-11-10 20:02 | NUR ---
Dr. Davila called with SVE report. states that she will head this way for delivery.
--- NOTE | 2019-11-10 20:44 | NUR ---
2043: Delivery of viable female infant in labor room. Cord cut and taken to warmer at this time. 2034: Placenta delivered and Pitocin turned wide open. 2104: Pt remains in [facility] for repair of left periurethral tear. 2109: Repair finished. Fundus is firm and one under umbilicus. Minimal bleeding and no clots expressed. 2129: Fundus is firm and one under umbilicus. Minimal bleeding and no clots expressed. 2144: Fundus is firm and one under umbilicus. Minimal bleeding and no clots expressed. 2200: Fundus is firm and one under umbilicus. Minimal bleeding and no clots expressed. 2215: Fundus is firm and one under umbilicus. Minimal bleeding and no clots expressed. 2245: Fundus is firm and at umbilicus. Minimal bleeding and no clots expressed. 2250: remains on father's chest at this time. Pt. states that he still cannot move his right leg, but would like to shower when he walks. Denies the urge to void at this time.
--- NOTE | 2019-11-10 21:19 | OB Labor & Delivery Record ---
Vag Delivery Note Vag Delivery Note Date of Delivery: 11/10/19 Preoperative Diagnosis: [place] is a (24 /Para 2 / 1,Gestational Age (wks)38with 6 days Postoperative Diagnosis: Same Surgeon: EAN RICHARD Rn Teacher: None Anesthesia: Epidural Delivery Type: Spontaneous vaginal delivery Findings: Viable female , apgars 2/7, weight 8#4 Lacerations: right periurethral abrasion, left periurethral laceration Intact placenta with 3 vessel cord. No nuchal cord, body cord or shoulder dystocia Estimated Blood Loss: 300 ml Complications: None Condition: Stable Description of Procedure: The patient is a 24 year old female who presented in active labor. She was admitted and informed consent was obtained. Her labor course was remarkable for augmentation with pitocin and bradycardia with . She progressed to complete dilatation and began to push. She was then set up for delivery. The 's head was delivered atraumatically in the OA position. The shoulders and remainder of the infant's body were then delivered without difficulty. Upon delivery, the infant was placed on maternal abdomen. After a brief delay the cord was doubly clamped and cut and the infant was handed off to the pediatric staff. An intact placenta with 3-vessel cord delivered via Cesario and there was found to be minimal bleeding.~ Vigorous fundal massage was performed and the fundus was found to be firm. IV oxytocin was given. Examination of the vagina and perineum revealed a left periurethral laceration repaired in the simple running fashion with 3-0 rapide suture. Following the repair, sponge, instrument and needle counts were correct. Mom and baby were both in stable condition in the labor suite. Vitals - Labs Vital Signs - I&O Vital Signs Date Time Temp Pulse Resp B/P (MAP) Pulse Ox O2 Delivery O2 Flow Rate FiO2 11/10/19 19:05 68 18 120/71 (87) Room Air 11/10/19 18:50 82 18 121/69 (86) Room Air 11/10/19 18:35 69 18 113/70 (84) Room Air 11/10/19 18:20 61 18 119/67 (84) 97 Room Air 11/10/19 18:05 70 18 116/65 (82) 97 Room Air 11/10/19 17:48 35.7 67 18 125/68 (87) 100 Room Air 11/10/19 17:45 67 18 120/63 (82) 99 Room Air 11/10/19 17:42 76 18 117/64 (81) 99 Room Air 11/10/19 17:39 70 18 110/57 (74) 99 Room Air 11/10/19 17:36 73 18 118/59 (78) 97 Room Air 11/10/19 17:33 72 18 122/57 (78) 97 Room Air 11/10/19 17:30 66 18 116/58 (77) 98 Room Air 11/10/19 17:27 64 18 113/60 (77) 98 Room Air 11/10/19 17:24 67 18 123/56 (78) 97 Room Air 11/10/19 17:21 67 18 123/56 (78) 97 Room Air 11/10/19 17:18 66 18 116/53 (74) 96 Room Air 11/10/19 17:15 37.0 68 18 104/51 (68) 96 Room Air 11/10/19 17:08 85 18 121/63 (82) 95 Room Air 11/10/19 17:05 86 18 121/58 (79) 98 Room Air 11/10/19 17:00 86 18 146/65 (92) 99 Room Air 11/10/19 16:55 91 18 154/62 (92) 99 Room Air 11/10/19 16:52 92 18 154/96 (115) 99 Room Air 11/10/19 16:20 68 18 126/86 (99) Room Air 11/10/19 16:05 67 18 121/73 (89) Room Air 11/10/19 15:50 69 18 103/61 (75) Room Air 11/10/19 15:20 76 18 123/72 (89) Room Air 11/10/19 15:05 64 18 125/80 (95) Room Air 11/10/19 14:50 82 18 104/68 (80) Room Air 11/10/19 14:35 76 18 113/68 (83) Room Air 11/10/19 13:15 36.6 11/10/19 12:27 85 18 123/64 (83) 98 Room Air Labs Laboratory Tests 11/10/19 12:58: White Blood Count 10.0, Red Blood Count 4.23L, Hemoglobin 12.7, Hematocrit 38, Mean Corpuscular Volume 91, Mean Corpuscular Hemoglobin 30, Mean Corpuscular Hemoglobin Concent 33, Red Cell Distribution Width 12.9, Platelet Count 107L, Mean Platelet Volume , Neutrophils (%) (Auto) 74, Lymphocytes (%) (Auto) 17, Monocytes (%) (Auto) 8, Eosinophils (%) (Auto) 1, Basophils (%) (Auto) 0, Neutrophils # (Auto) 7.4, Lymphocytes # (Auto) 1.7, Monocytes # (Auto) 0.8, Eosinophils # (Auto) 0.1, Basophils # (Auto) 0.0 EAN RICHARD MD Nov 10, 2019 21:19
[2019-11-10] MEDS ORDERED: BENZOCAINE/MENTHOL (DERMOPLAST) 60 ML CAN TP PRN (21:30)
[2019-11-10] MEDS ORDERED: MEASLES,MUMPS,RUBELLA 1 EA INJ SQ ONE (21:30)
[2019-11-10] MEDS ORDERED: TETANUS,DIPTH,PERTUSS P/F (BOOSTRIX) 0.5 ML VIAL IM ONE (21:30)
[2019-11-10] MEDS ORDERED: WITCH HAZEL(TUCKS) 40 EA JAR TOP PRN (21:30)
[2019-11-10] MEDS: IBUPROFEN 600 MG (MOTRIN) TAB PO SCH (22:26)
[2019-11-11] VITALS (7 sets, daily range): BP systolic 107–125; BP diastolic 64–71
[2019-11-11] MEDS: IBUPROFEN 600 MG (MOTRIN) TAB PO SCH ×3 (04:15→18:02)
[2019-11-11 06:01] LABS: BASOPHILS % (AUTO) 0 % (0-10); EOSINOPHILS # (AUTO) 0.1 10^3/uL (0.0-0.3); EOSINOPHILS % (AUTO) 1 % (0-10); HEMATOCRIT 36 % (35-52); HEMOGLOBIN 11.7 G/DL (11.5-16.0); LYMPHOCYTES # (AUTO) 2.3 X 10^3 (1.0-4.0); LYMPHOCYTES % (AUTO) 17 % (12-44); MEAN CORPUSCULAR HEMOGLOBIN 30 PG (25-34); MEAN CORPUSCULAR HGB CONC 33 G/DL (32-36); MEAN CORPUSCULAR VOLUME 91 FL (80-99); MONOCYTES # (AUTO) 1.1 X 10^3 (0.0-1.0); MONOCYTES % (AUTO) 8 % (0-12); NEUTROPHILS # (AUTO) 10.1 X 10^3 (1.8-7.8); NEUTROPHILS % (AUTO) 74 % (42-75); PLATELET COUNT 96 10^3/uL (130-400); WHITE BLOOD COUNT 13.7 10^3/uL (4.3-11.0)
--- NOTE | 2019-11-11 07:23 | Progress Note ---
Subjective Subjective/Events-last exam No complaints according to patient. Taking ibuprofen for pain relief. No significant vaginal bleeding. Objective Exam Last Set of Vital Signs Vital Signs Date Time Temp Pulse Resp B/P (MAP) Pulse Ox O2 Delivery O2 Flow Rate FiO2 11/11/19 04:17 36.4 64 18 107/65 (79) 97 11/10/19 22:50 Room Air Capillary Refill : I&O Intake and Output 11/11/19 00:00 Daily Weight Change No General: No Acute Distress Results/Procedures Lab Laboratory Tests 11/10/19 12:58: White Blood Count 10.0, Red Blood Count 4.23L, Hemoglobin 12.7, Hematocrit 38, Mean Corpuscular Volume 91, Mean Corpuscular Hemoglobin 30, Mean Corpuscular Hemoglobin Concent 33, Red Cell Distribution Width 12.9, Platelet Count 107L, Mean Platelet Volume , Neutrophils (%) (Auto) 74, Lymphocytes (%) (Auto) 17, Monocytes (%) (Auto) 8, Eosinophils (%) (Auto) 1, Basophils (%) (Auto) 0, Ne utrophils # (Auto) 7.4, Lymphocytes # (Auto) 1.7, Monocytes # (Auto) 0.8, Eosinophils # (Auto) 0.1, Basophils # (Auto) 0.0 11/11/19 05:45: White Blood Count 13.7H, Red Blood Count 3.94L, Hemoglobin 11.7, Hematocrit 36, Mean Corpuscular Volume 91, Mean Corpuscular Hemoglobin 30, Mean Corpuscular Hemoglobin Concent 33, Red Cell Distribution Width 13.0, Platelet Count 96L, Mean Platelet Volume , Neutrophils (%) (Auto) 74, Lymphocytes (%) (Auto) 17, Monocytes (%) (Auto) 8, Eosinophils (%) (Auto) 1, Basophils (%) (Auto) 0, Neutrophils # (Auto) 10.1H, Lymphocytes # (Auto) 2.3, Monocytes # (Auto) 1.1H, Eosinophils # (Auto) 0.1, Basophils # (Auto) 0.0 Assessment/Plan Assessment/Plan Admission Status: Inpatient Order (span 2 midnights) Assessment & Plan 1. S/P day 1 -continue with routine PP care order -suspect home in the am of 11/11 Clinical Quality Measures DVT/VTE Risk/Contraindication: Risk Factor Score Per Nursin RFS Level Per Nursing on Admit: 1=Low/No VTE PPX AMERICO SLAUGHTER MD Nov 11, 2019 07:23
[2019-11-11] MEDS ORDERED: ACETAMINOPHEN 500 MG TAB (TYLENOL) PO PRN (08:30)
[2019-11-11] MEDS ORDERED: DOCUSATE SODIUM 100 MG (COLACE) CAP PO SCH (09:00)
--- NOTE | 2019-11-11 09:28 | Anesthesia-Regional Post-Op ---
Regional Patient Condition Mental Status: Alert, Oriented x3 Circulation: Same as Pre-Op Headache: Absent Sensation: Full Recovery Motor Block: Absent Post Op Complications Complications None Follow Up Care/Instructions Patient Instructions None needed. Anesthesia/Patient Condition Patient is doing well, no complaints, stable vital signs, no apparent adverse anesthesia problems. No complications reported per nursing. NAKUL RICHARDSON CRNA Nov 11, 2019 09:28
[2019-11-11] MEDS: ACETAMINOPHEN 500 MG TAB (TYLENOL) PO PRN ×2 (15:08→20:58)
--- NOTE | 2019-11-11 22:29 | Discharge Summary ---
Diagnosis/Chief Complaint Date of Admission Nov 10, 2019 at 12:16 Date of Discharge November 11, 2019 Discharge Date: Nov 11, 2019 Discharge Time: 23:00 Admission Diagnosis Admission Diagnosis 1. IUP at 39 weeks gestation Discharge Diagnosis 1. IUP at 39 weeks gestation Reason Hospital Visit 24 yo G2 now L2 who [facility]. Discharge Summary-OBS Procedures 1. Epidural per anesthesia 2. (Dr Davila) 3 Repair of periurethral tear (Dr Davila) Discharge Physical Examination Allergies: Coded Allergies: Amoxicillin (Verified Allergy, Unknown, 12/05/13) Vitals & I&Os Vital Signs Date Time Temp Pulse Resp B/P (MAP) Pulse Ox O2 Delivery O2 Flow Rate FiO2 11/11/19 20:54 36.6 79 18 109/70 (83) 99 Room Air General Appearance: No Acute Distress Respiratory: Clear to Auscultation Abdominal: Soft (with uterus firm) Hospital Course Was the Problem List Reviewed?: Yes Discharge Instructions to patient/family Please see electronic discharge instructions given to patient. Discharge Medications Reviewed and agree with Discharge Medication list on patient's Discharge Instruction sheet Clinical Quality Measures DVT/VTE Risk/Contraindication: Risk Factor Score Per Nursin RFS Level Per Nursing on Admit: 1=Low/No VTE PPX AMERICO SLAUGHTER MD Nov 11, 2019 22:29
--- NOTE | 2019-11-11 22:31 | Discharge Inst-Women's Service ---
Discharge Inst-Women's Serv Depart Medication/Instructions New, Converted or Re-Newed RX: Other Instructions Ibuprofen 200mg 2-3 orally every 6hr prn pain or cramps Problems Reviewed?: Yes Consults/Follow Up Additional Follow Up: Yes (Dr Davila in 6 weeks.) Activity Activity: Activity as Tolerated Driving Instructions: No Driving for 1 Week Nothing Inside Vagina: No [place] (for 6 weeks) Diet Discharge Diet: Regular Diet Return to The Hospital For: as below Symptoms to Report to : Bleeding Excessive, Pain Increased, Fever Over 101 Degrees F, Vaginal Discharge Foul For Any Problems or Questions: Contact Your Physician AMERICO SLAUGHTER MD Nov 11, 2019 22:31
--- NOTE | 2019-11-11 23:00 | NUR ---
2300: Discharge instructions reviewed and signed at this time. 2307: Pt taken downstairs with nurse via wheelchair and loaded into personal vehicle with infant. No s/s of distress.
== END 2019-11-11 23:07 | disposition home or self-care (01) | DRG 807 ==
LOC: LDRP 12:16
PROVIDERS: ADMIT Family Medicine; ATTEND Family Medicine
PROC: 10E0XZZ Delivery of Products of Conception, External Approach (ICD-10-PCS; principal; 2019-11-10)
PROC: 10907ZC Drainage of Amniotic Fluid, Therapeutic from Products of Conception, Via Natural or Artificial Opening (ICD-10-PCS; 2019-11-10)
PROC: 0UQMXZZ Repair Vulva, External Approach (ICD-10-PCS; 2019-11-10)
DX: O99.824 Streptococcus B carrier state complicating childbirth (principal); Z37.0 Single live birth; O71.82 Other specified trauma to perineum and vulva; Z3A.38 38 weeks gestation of pregnancy; Z88.0 Allergy status to penicillin
CPT/HCPCS: 36415; 83033; 85025; 86850; 86900; 86901